=== PATIENT | male | born 1945 | race Caucasian/White ===

== ENCOUNTER 2016-07-23 02:21 | Inpatient (IN) | payer OTHER ==
[~2016-07-23] VITALS: Ht 180.3 cm; Wt 110.2 kg
--- NOTE | ~2016-07-23 | HC ---
[facility] [place] [address] CONSULTATION Name: ANDRADE GARCÍA ROSEBUSH Room #: 464-P [facility] IN M.R.#: [id number] Admission: 07/23/16 Attend Phys: Bala Medellin MD Discharge: 07/25/16 Date of : 47 Report #: [id number] THIS REPORT FOR: //name// CC: Bharath Baldomeroshanna Medellin DATE OF SERVICE: 07/23/2016 REASON FOR CONSULTATION: Elevated creatinine. ATTENDING PHYSICIAN: Bala Medellin M.D. HISTORY OF PRESENT ILLNESS: The patient presented with palpitations, slow heartbeat, weakness then nausea and vomiting. He came to the Emergency Room, his creatinine was found to be 2.4 as far as we know. He has had previous acute but no chronic kidney disease, although he has a longstanding diabetes and heart difficulties. He was found to have a creatinine of 2.4 and a potassium of 6.8. Of note, he was taking potassium at home, also intermittent Lasix. PAST MEDICAL HISTORY: He has a longstanding history of coronary artery disease, having a triple bypass surgery in 1980 and a repeat quadruple bypass done in 1993 and he has had since then a stent placed in one of his coronary arteries. He has had intermittent atrial fibrillation. He has had failed cardioversions. He has had anemia for which he was on Aranesp, which he is off. He has had diabetes for many years, recently started on insulin, but no retinopathy or peripheral neuropathy. HOME MEDICATIONS: Include WelChol 625 mg b.i.d., Protonix 40 mg b.i.d., Crestor 40 mg daily, Zetia 10 mg daily, metformin 1000 mg b.i.d., insulin, aspirin 81 mg daily, Humalog insulin, Ranexa 1000 mg b.i.d., potassium 20 mEq taken when he takes Lasix p.r.n. and atenolol 50 mg daily. FAMILY HISTORY: Positive for heart disease. SOCIAL HISTORY: Former smoker, but quit many years ago. 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 REVIEW OF SYSTEMS: GENERAL: He feels reasonably well, does get easily short-winded. EYES: Vision is okay. ENT: Hearing okay. No mouth sores or ulcers. No difficulty swallowing. ENDOCRINE: Positive for the diabetes. RESPIRATORY: Easily short-winded, as mentioned, slight degree of chronic cough. He has difficulty getting up and down stairs. [facility] [address] [place] [address] CONSULTATION Name: ANDRADE GARCÍA ROSEBUSH Room #: 464-[facility]#: [id number] Admission: 07/23/16 Attend Phys: Bala Medellin MD Discharge: 07/25/16 Date of : 47 Report #: [id number] CARDIAC: He had the palpitations as mentioned, occasional leg swelling, he takes Lasix for that. NEUROLOGICAL: No seizure, syncope or stroke. GASTROINTESTINAL: He did have some vomiting last night. No hematemesis. PHYSICAL EXAMINATION: GENERAL: This is a reasonably well-appearing gentleman. SKIN: Unremarkable. SKELETAL: Well developed, well nourished, somewhat overweight. HEENT: Extraocular movements are full. Vision intact. No scleral icterus. Nasal cannula oxygen in place. Hearing intact. Mucous membranes moist. Tongue, buccal mucosa benign. NECK: Supple. CHEST: Clear to auscultation. HEART: Slow but regular. ABDOMEN: Soft, nontender. EXTREMITIES: Show no edema. Peripheral pulses diminished. LABORATORY DATA: As mentioned, creatinine 2.4, the potassium was 6.8, down to 5.9 with treatment. ASSESSMENT AND PLAN: 1. Acute kidney insufficiency. His creatinine is up, he went into a slow heart rhythm, his potassium went up, maybe primarily or secondarily, all seems to be slowly getting better IV fluids are being continued, but we will certainly have to be careful not to overdo the IV fluids. Last echocardiogram that I have shows decreased ejection fraction of 30-35%, obviously he does have some compromise of his cardiac function, so we will certainly have to be careful with the IV fluids, not to throw him into heart failure, possibly another dose of Lasix along the way to help care with some of the excess of potassium, there may be some underlying chronic kidney disease as well, further evaluation will include urine protein studies, paraprotein studies and urinalysis. 2. Longstanding diabetes mellitus. 3. Ischemic cardiomyopathy. 4. Peripheral arterial disease. 5. History of atrial fibrillation, flutter. <ELECTRONICALLY SIGNED> By: Pasha Kim MD 07/29/16 1012 1157 13 Bharath Choi MD /nt
--- NOTE | ~2016-07-23 | H ---
[facility] [place] [address] HISTORY AND PHYSICAL Name: ANDRADE GARCÍA NATALYA Room #: 464-P ADM IN M.R.#: [id number] Admission: 07/23/16 Attend Phys: Bala Medellin MD Discharge: Date of : 47 Report #: [id number] THIS REPORT FOR: //name// CC: Bharath Medellin DATE OF SERVICE: 07/23/2016 CHIEF COMPLAINT: Shortness of air. HISTORY OF PRESENT ILLNESS: The patient is a 70-year-old male, who is well known to me, who states he had an episode where he felt like his heart was beating too slow, and he became short of breath. He has had these episodes in the past. These were lasted about 30 minutes. If he goes and lays down, they get better. At this time; however, it continued, so he presented to the ER. He states that he has been reducing his Lasix usage, lately because it caused some burning with urination, and when he used it daily, so using it about one dose 3 days a week. He says he has been eating and drinking well. He denied any chest pain with this sensation. He just generally felt weak when his pulse was low. PAST MEDICAL HISTORY: Significant for: 1. Coronary artery disease with bypass grafting in 1980 and 1993. 2. Chronic back pain with bulging disk. 3. History of atrial flutter. 4. Non-insulin dependent diabetes mellitus. 5. Prior cardioversions in 2011 and 2012. 6. Anemia with upper GI bleeds in 2012 and 2013. 7. Near syncope, dehydration, and LAMAR in 2013. 8. Reflux with prior ulcers. MEDICATIONS: Welchol 625 mg b.i.d., Protonix 40 mg b.i.d., Crestor 40 mg a day, Zetia 10 mg a day, metformin 1000 mg b.i.d., Levemir 30 units at bedtime, aspirin 81 mg a day, Humalog sliding scale, Ranexa 1000 mg b.i.d., potassium 20 mEq p.r.n. with his Lasix, which has also been p.r.n. 40 mg, and atenolol 25 mg daily. ALLERGIES: No known drug allergies. SOCIAL HISTORY: He is and lives with his . Nonsmoker, nondrinker, and no recreational drugs. REVIEW OF SYSTEMS: CONSTITUTIONAL: Prior to this event, no fever or chills. HEENT: No headaches or visual changes. CHEST: No chest pain or tightness. He does have these episodes of bradycardia. [address] [address] HISTORY AND PHYSICAL Name: ANDRADE GARCÍA [place] Room #: 464-P ADM IN M.R.#: [id number] Admission: 07/23/16 Attend Phys: Bala Medellin MD Discharge: Date of : 46 Report #: [id number] GASTROINTESTINAL: No nausea or vomiting. GENITOURINARY: He does have some right flank pain that has been going on for several weeks and burning with urination when he takes too much Lasix. EXTREMITIES: No swelling or joint pain. SKIN: No rashes or wounds. NEUROLOGIC: No new numbness or weakness. PHYSICAL EXAMINATION: VITAL SIGNS: Blood pressure 111/65, pulse is 50, respiratory rate is 19. He is afebrile. GENERAL: The patient is awake and alert, in no acute distress. HEENT: His mucous membranes are moist. NECK: Supple. Without adenopathy, thyromegaly, or bruits. CHEST: Clear to auscultation. CARDIOVASCULAR: He has a regular rhythm and rate of about 60 now. It was in the 30s in the ER. There is no murmur. There is no S4. ABDOMEN: Soft, nondistended, and nontender. No masses. Normoactive bowel sounds present. He has right flank pain on palpation. EXTREMITIES: Show no edema. Pulses are intact. SKIN: Intact without rashes or wounds. NEUROLOGIC: No motor or sensory weakness. LABORATORY DATA: His sodium was 136, potassium was 6.4, chloride 102, bicarbonate 25, BUN 25, creatinine 2.4, glucose 187, AST 21, ALT 21, alkaline phosphatase 46. CK-MB 2.5. Troponin less than 0.04. BNP 2116, total protein 7.9, albumin 4.0. INR 1.1. WBC is 10.6, hemoglobin 11.2, hematocrit 34.2, platelet count 247, segs 69, lymphs 15. ASSESSMENT: 1. Symptomatic bradycardia. 2. Acute kidney injury with chronic kidney disease. 3. Congestive heart failure, chronic systolic. 4. Hyperkalemia, most likely due to his acute kidney injury. 5. Diabetes mellitus, insulin requiring. 6. Right flank pain. PLAN: We are going to bring him in. Give him IV fluids. Recheck electrolytes. Consult Cardiology to consider pacemaker placement. Continue his insulin, basal and sliding scale rates. Check an ultrasound of his kidneys, in light of the flank pain and LAMAR. <ELECTRONICALLY SIGNED> By: Bala Medellin MD 07/25/16 0714 0653 1224 Bala Medellin MD /nt
--- NOTE | ~2016-07-23 | EKG ---
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1945 Requested By: Bharath Choi Order Number: [id number] MD: Preet Jarrett Measurements Intervals [place] Rate: 73 P: 55 VA: 210 QRS: 30 QRSD: 93 T: 155 QT: 405 QTc: 447 Interpretive Statements Sinus rhythm Nonspecific T abnormalities, lateral leads Compared to ECG 07/23/2016 08:33:02 No significant changes Electronically Signed On 07-24-2016 8:00:59 CDT by Preet Jarrett [email or web address] <ELECTRONICALLY SIGNED> By: Preet Jarrett MD, [facility] 07/24/16 0800 4 4 Preet Jarrett MD, [facility] /EPI
--- NOTE | ~2016-07-23 | HC ---
[facility] [place] [address] CONSULTATION Name: RAQUELANDRADE LINCOLN Room #: 464-[facility] IN M.R.#: [id number] Admission: 07/23/16 Attend Phys: Bala Medellin MD Discharge: 07/25/16 Date of : 46 Report #: [id number] THIS REPORT FOR: //name// CC: Bharath Medellin DATE OF SERVICE: 07/23/2016 HISTORY OF PRESENT ILLNESS: The patient is a 70-year-old male well known to myself who I followed for a number of years here now for coronary artery disease with prior remote bypass surgery, stents to the SVG to the RCA and stable anginal type symptoms. He has been quite stable in the last year or so. The ejection fraction has been in the 50% range with concenteric hypertrophy, mild pulmonary pressure elevation, moderate aortic valve sclerosis without stenosis, vwth-fh-gomzjhyn MR and TR. He apparently gives a couple week history of episodes where he became bradycardic and then shortness of breath transiently, but more importantly leading after this, he has had some problems with dysuria or at least initiating the stream and he stopped his 80 mg of Lasix and he has taken it perhaps 40 mg 3 times in the last week or two. Some question of dysuria and some flank pain. He follows with Dr. Medellin. He has remained out of the hospital for 2-1/2 years, which is actually quite remarkable. He has intermittent cough. He also talks about some sputum production and he denies significant fever, chills, not eliciting any sort of anginal type symptoms. He has been compliant with the medications with the exception of Lasix, Atenolol 50, potassium 20, Ranexa 1000 b.i.d., insulin, metformin 1000 b.i.d., Zetia, rosuvastatin 40, Protonix 40, and Welchol 625 b.i.d., supposed to be on Lasix in addition. PAST MEDICAL HISTORY: Positive for coronary artery disease with bypass and stents, mild ischemic cardiomyopathy, stable anginal symptoms, hypertension, diabetes, paroxysmal AFib with a cardioversion ____ failed and felt to be in more permanent AFib, has had intermittent AFib but ____ able to keep him in sinus rhythm here in the last year or so, reflux gastritis, the bypass surgery initially was 82 and 1994, left knee and right shoulder operations. FAMILY HISTORY: Father had an infarct young. Mother also had coronary artery disease in her 70s. SOCIAL HISTORY: He is a former smoker. No drugs or alcohol. He is with 2 children, moderate caffeine. ALLERGIES: No known drug allergies. REVIEW OF SYSTEMS: Negative except for the persistent hesitancy and sometimes dysuria. [facility] [address] [place] [address] CONSULTATION Name: ANDRADE GARCÍA NATALYA Room #: 464-P DIS IN M.R.#: [id number] Admission: 07/23/16 Attend Phys: Bala Medellin MD Discharge: 07/25/16 Date of : 46 Report #: [id number] LABORATORY DATA: Sodium 136, potassium was 6.4, now 6.8, creatinine 2.4, his baseline has been around 2. H and H is 11 and 34.2, white count 10.6, platelets 247. Ultrasound of his abdomen, no right-sided hydronephrosis seen, possible stones in the left kidney, gallbladder is thickened. Chest x-ray, cardiomegaly. No evidence of overt failure. PHYSICAL EXAMINATION: GENERAL: Pleasant, alert, he does not appear to be in distress except for some right-sided back pain. VITAL SIGNS: Blood pressure 136/68, pulse 60 and regular. HEENT: Eyes reveal xanthelasmas. Pharynx is clear. NECK: Shows preserved upstrokes without JVD or bruits. LUNGS: Clear. CARDIOVASCULAR: Regular rate and rhythm, S1, S2. ABDOMEN: Soft, nontender. Right flank tenderness. EXTREMITIES: Reveal trace of edema, nonpitting. NEUROLOGIC: Nonfocal. SKIN: Warm and dry without xanthoma or ulcer. MUSCULOSKELETAL: No gross joint deformity. ASSESSMENT: 1. Hyperkalemia. 2. Acute on chronic renal failure. 3. Paroxysmal atrial fibrillation. 4. Mild ischemic cardiomyopathy. 5. Coronary artery disease with remote CABG x 2 and coronary stents. 6. Diabetes. 7. Acute on chronic systolic and diastolic heart failure. RECOMMENDATIONS AND PLAN: We will correct the potassium, holding on any diuretic or potassium at this point. Nephrology to way in here. We will hold on the atenolol for now in light of the bradydysrhythmias that this may have been potassium related. Troponins are negative. No reason for repeat troponins and the BNP was only 2100. Concerned about a possible urinary tracts or prostatitis, although there does not appear to be an obstructive uropathy at least on ultrasound. His cardiac status appears to be fairly stable with exception of the hyperkalemia without significant over heart failure. We will follow with you. <ELECTRONICALLY SIGNED> By: Bharath Alexandre MD, [facility] 07/29/16 1544 0857 01 Bharath Alexandre MD, FACC /nt
--- NOTE | ~2016-07-23 | EKG ---
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 : 1945 Requested By: Bharath Alexandre Order Number: [id number] MD: Preet Jarrett Measurements Intervals [place] Rate: 67 P: OR: QRS: 35 QRSD: 99 T: 108 QT: 456 QTc: 482 Interpretive Statements Probable junctional rhythm Nonspecific T abnormalities, lateral leads Borderline prolonged QT interval No previous ECGs available for comparison Electronically Signed On 07-23-2016 9:05:08 CDT by Preet Jarrett [email or web address] <ELECTRONICALLY SIGNED> By: Preet Jarrett MD, [facility] 07/23/16904 2 2 Preet Jarrett MD, [facility] /EPI
--- NOTE | ~2016-07-23 | EKG ---
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 07/23/16 0900 6 6 Preet Jarrett MD, [facility] /EPI
[~2016-07-23 02:21] MED LIST: AMARYL2 MG PO; AMARYL4 MG PO; ARANESP100 MCG/0. SUBQ; ASPIR 8181 MG PO; ASPIRIN EC325 M1 PO; ASPIRIN325 PO; ATENOLOL 100MG100 MG PO; ATENOLOL 50MG T50 M1 PO; B12INJ IM; CARDIZEM CD240 MG PO; CARVEDILOL25 MG PO; COZAAR 25 MG TA25 MG PO; CRESTOR40 MG PO; DULERA 200 MCG/13 GM INH; ELIQUIS5 MG PO; FERROUS SULFAT140 MG PO; FIBER0.52 G1 PO; FISH OIL 1,0001 EAC5 PO; FUROSEMIDE 40 M40 M1 PO; GLUCOPHAGE1000 MG PO; HYDROCHLOROTH12.5 MG PO; IRON SULFATE PO; JANUVIA50 MG PO; LANOXIN 0.120.125 M1 PO; LANOXIN 0.250.25 M1 PO; LASIX 40 MG TAB40 M2 PO; MIRALAX17 GM PO; MULTAQ400 MG PO; NIASPAN ER 101000 M1 PO; PACERONE100 MG PO; POTASSIUM20 PO; PRADAXA150 MG PO; PROTONIX40 M2 PO; RANEXA1000 MG PO; SLOW RELEASE I142 MG PO; SOTALOL 120 MG120 M1 PO; VICTOZA0.6 MG/0.1 SUBQ; WELCHOL 625 MG625 M1 PO; ZETIA10 MG PO
[2016-07-23 02:23] VITALS: BP 111/65
[2016-07-23 02:46] LABS: ABSOLUTE NEUTROPHILS 7.4 thou/uL (1.4-8.2); BASOPHILS 0.9 % (0.0-2.0); EOSINOPHILS 3.6 % (0.0-3.0); HEMATOCRIT 34.2 % (42.0-52.0); HEMOGLOBIN 11.2 gm/dL (14.0-18.0); LYMPHOCYTES 15.7 % (24.0-44.0); MANUAL DIFF NO; MCHC 32.7 g/dL (28.0-37.0); MCV 79.5 fL (80.0-100.0); MONOCYTES 9.9 % (1.0-8.0); PLATELET COUNT 247 thou/uL (150-400); POLYS 69.9 % (36.0-66.0); RDW 18.2 % (10.5-14.5); WBC 10.6 thou/uL (4.0-11.0)
[2016-07-23 02:55] LABS: APTT 26.2 Seconds (24.5-32.8); INR 1.1; PROTIME 11.7 Seconds (9.3-11.4)
[2016-07-23 03:14] LABS: ALKALINE PHOSPHATASE 46 U/L (46-116); ANION GAP 9 mmol/L (7-16); BUN 25 mg/dL (7-18); CALCIUM 9.2 mg/dL (8.5-10.1); CHLORIDE 102 mmol/L (98-107); CK-MB MASS 2.5 ng/mL (<0.5-3.6); CO2 25 mmol/L (21-32); CREATININE 2.4 mg/dL (0.7-1.3); GLUCOSE 187 mg/dL (74-106); MAGNESIUM 1.8 mg/dL (1.8-2.4); NT-PRO BRAIN NAT PEPTIDE 2116 pg/mL (<300); SGOT 21 U/L (15-37); SGPT 21 U/L (30-65); SODIUM 136 mmol/L (136-145); TOTAL BILIRUBIN 0.7 mg/dL (<0.1-1.0); TOTAL PROTEIN 7.9 g/dL (6.4-8.2); TROPONIN-I < 0.04 ng/mL (<0.04-0.07)
[2016-07-23 03:16] LABS: POTASSIUM 6.4 mmol/L (3.5-5.1)
[2016-07-23] MEDS ORDERED: METFORMIN HCL500 MG PO (03:22)
[2016-07-23] MEDS ORDERED: ZETIA10 MG PO (03:22)
[2016-07-23] MEDS ORDERED: LEVEMIR100 UNIT/1 SUBQ (03:23)
[2016-07-23] MEDS ORDERED: NOVOLOG100 UNIT/1 SUBQ (03:24)
[2016-07-23] MEDS ORDERED: ASPIR 8181 MG PO (03:24)
[2016-07-23] MEDS ORDERED: HUMALOG100 UNIT/1 SUBQ (03:26)
[2016-07-23 04:44] VITALS: BP 136/57
[2016-07-23 05:05] VITALS: BP 136/67
[2016-07-23 09:04] LABS: CALCIUM 8.7 mg/dL (8.5-10.1); CREATININE 2.4 mg/dL (0.7-1.3); POTASSIUM 5.9 mmol/L (3.5-5.1)
[2016-07-23 11:54] LABS: URINE BILIRUBIN NEGATIVE (Negative); URINE BLOOD TRACE (Negative); URINE COLOR YELLOW; URINE GLUCOSE-RANDOM* TRACE (Negative); URINE KETONES NEGATIVE (Negative); URINE LEUKOCYTES-REFLEX NEGATIVE (Negative); URINE PROTEIN (DIPSTICK) 1+ (Negative); URINE SPECIFIC GRAVITY 1.025 (1.003-1.035); URINE UROBILINOGEN 0.2 E.U./dl (0.2-1.0)
[2016-07-23 12:01] LABS: CRYSTALS None Seen /LPF (None Seen); HYALINE CASTS 4-10 Moderate /LPF (None Seen); SQUAMOUS None Seen /LPF (0-3)
[2016-07-23 12:02] LABS: URINE RBC 0-2 Rare /HPF (0-2); URINE WBC-REFLEX 0-5 Rare /HPF (0-5)
[2016-07-23 12:55] VITALS: BP 135/60
[2016-07-23 17:02] VITALS: BP 132/75
[2016-07-23 19:11] LABS: URINE CREATININE-RANDOM* 69.5 mg/dL (Not Estab.); URINE PROTEIN-RANDOM* 40.4 mg/dL (Not Estab.)
[2016-07-23 21:48] VITALS: BP 133/66
[2016-07-24 04:00] VITALS: BP 129/61
[2016-07-24 06:20] LABS: ALBUMIN 3.5 g/dL (3.4-5.0); CALCIUM 8.3 mg/dL (8.5-10.1); CREATININE 1.6 mg/dL (0.7-1.3); PHOSPHORUS 3.5 mg/dL (2.5-4.9)
[2016-07-24 06:26] LABS: POTASSIUM 4.3 mmol/L (3.5-5.1)
[2016-07-24 07:25] VITALS: BP 172/69
[2016-07-24 12:42] VITALS: BP 122/61
[2016-07-24 15:06] LABS: KAPPA FREE LIGHT CHAINS 64.66 mg/L (3.30-19.40); KAPPA/LAMBDA RATIO 2.78 (0.26-1.65); LAMBDA FREE LIGHT CHAINS 23.27 mg/L (5.71-26.30)
[2016-07-24 16:34] VITALS: BP 125/68
[2016-07-24 20:01] VITALS: BP 131/55
[2016-07-25 04:47] VITALS: BP 148/66
[2016-07-25 06:17] LABS: ALBUMIN 3.6 g/dL (3.4-5.0); CALCIUM 9.1 mg/dL (8.5-10.1); CREATININE 1.2 mg/dL (0.7-1.3); POTASSIUM 5.2 mmol/L (3.5-5.1)
[2016-07-25] MEDS ORDERED: MULTAQ 400 MG400 MG PO (07:08)
[2016-07-25] MEDS ORDERED: FLOMAX0.4 MG PO (07:08)
[2016-07-25 07:20] LABS: HEMATOCRIT 31.6 % (42.0-52.0); HEMOGLOBIN 10.3 gm/dL (14.0-18.0); MCH 25.9 pg (26.0-34.0); MCHC 32.5 g/dL (28.0-37.0); MCV 79.7 fL (80.0-100.0); RBC 3.96 mil/uL (4.50-6.00); RDW 18.2 % (10.5-14.5); WBC 5.8 thou/uL (4.0-11.0)
[2016-07-25 08:18] VITALS: BP 154/90
[2016-07-25 11:08] VITALS: BP 154/90
[2016-07-29 12:07] LABS: A/G RATIO 1.2 (0.7-1.7); ALBUMIN 3.8 g/dL (2.9-4.4); ALPHA 1 0.2 g/dL (0.0-0.4); ALPHA 2 0.9 g/dL (0.4-1.0); BETA 1.1 g/dL (0.7-1.3); GAMMA 1.1 g/dL (0.4-1.8); M-SPIKE Not Observed g/dL (Not Observed)
== END 2016-07-25 12:13 | disposition home or self-care (01) | DRG 682 ==
LOC: ER 02:21 → EROBS 03:49 → 4W 03:49
PROVIDERS: Emergency Medicine; Family Medicine; Internal Medicine Cardiovascular Disease; Internal Medicine Nephrology; Physician Assistant
DX: N17.9 Acute kidney failure, unspecified (principal); I50.43 Acute on chronic combined systolic (congestive) and diastolic (congestive) heart failure; I48.92 Unspecified atrial flutter; G89.29 Other chronic pain; M54.9 Dorsalgia, unspecified; E87.5 Hyperkalemia; I25.10 Atherosclerotic heart disease of native coronary artery without angina pectoris; I25.5 Ischemic cardiomyopathy; E11.51 Type 2 diabetes mellitus with diabetic peripheral angiopathy without gangrene; I48.0 Paroxysmal atrial fibrillation; K21.9 Gastro-esophageal reflux disease without esophagitis; I12.9 Hypertensive chronic kidney disease with stage 1 through stage 4 chronic kidney disease, or unspecified chronic kidney disease; N18.9 Chronic kidney disease, unspecified; N41.9 Inflammatory disease of prostate, unspecified; E11.22 Type 2 diabetes mellitus with diabetic chronic kidney disease; Z82.49 Family history of ischemic heart disease and other diseases of the circulatory system; Z95.5 Presence of coronary angioplasty implant and graft; Z87.891 Personal history of nicotine dependence; Z95.1 Presence of aortocoronary bypass graft
CPT/HCPCS: 10045

== ENCOUNTER 2017-12-22 15:51 | Inpatient (IN) | payer OTHER ==
[~2017-12-22] VITALS: Ht 180.3 cm; Wt 106.6 kg
--- NOTE | ~2017-12-22 | HC ---
[facility] [place] [address] CONSULTATION Name: ANDRADE AGRCÍA CEDAR KNOLLS Room #: [facility] IN M.R.#: [id number] Admission: 12/22/17 Attend Phys: Bala Medellin MD Discharge: Date of : 46 Report #: [id number] THIS REPORT FOR: //name// CC: Bala Medellin REFERRING PHYSICIAN: Dr. Bala Medellin. REASON FOR REFERRAL: Dyspnea. HISTORY OF PRESENT ILLNESS: The patient is a 72-year-old gentleman who presented to Emergency Room with progressive dyspnea. A pulmonary consultation was requested. The patient was in her usual state of health until about 3 weeks ago when he started developing increasing cough, productive of purulent sputum. He was given medications. Medrol Dosepak was also given. This caused his blood sugars to be high. Otherwise, he denies any chest pain, hemoptysis, nausea, vomiting, diarrhea. PAST MEDICAL HISTORY: Notable for history of coronary artery disease, myocardial infarction, hypertension, diabetes mellitus, atrial fibrillation, anemia, gastroesophageal reflux disease. He has had coronary artery bypass surgery x 2 in 1980 and 1993. Chronic back pain due to bulging disk, atrial flutter. ALLERGIES: None to medications. MEDICATIONS: List reviewed which includes Demadex, Plavix, Welchol, Protonix, Crestor, Zetia, Levemir, Tenormin, Glucophage, Jardiance, metformin, aspirin, Corlanor, Ventolin HFA 2 puffs p.r.n., Ranexa. FAMILY HISTORY: Noncontributory. SOCIAL HISTORY: The patient has smoked 2 packs a day for about 30 years, quit few years ago. REVIEW OF SYSTEMS: As mentioned above, otherwise 10-point system review negative. PHYSICAL EXAMINATION: GENERAL: He is awake, alert, in no apparent distress. VITAL SIGNS: Temperature is 97.5 degrees Fahrenheit, pulse is 100, respiratory rate is 20, blood pressure 100/57 mmHg, saturation 99%. HEENT: Normocephalic, atraumatic. NECK: Supple, without lymphadenopathy or thyromegaly. CHEST: Breath sounds are clear bilaterally without any rales or wheezes. CARDIOVASCULAR: Normal S1, S2. There are no murmurs or gallop. There is no [address] [address] CONSULTATION Name: ANDRADE GARCÍA CEDAR KNOLLS Room #: [address] [place] [address] [place] [facility].#: [id number] Admission: 12/22/17 Attend Phys: Bala Medellin MD Discharge: Date of : 46 Report #: [id number], no carotid bruit. Pulses are 2+/4+ bilaterally. ABDOMEN: Soft, nontender, no organomegaly or masses felt. GENITOURINARY: Deferred. RECTAL: Deferred. EXTREMITIES: There is no edema, cyanosis or clubbing. LABORATORY DATA: Chest x-ray shows mild increase in pulmonary vascular markings, mild bibasilar atelectasis. Renal ultrasound shows no obstruction, small echogenic density seen in the lower pole of the left kidney. BNP is 3500. Electrolytes: Sodium 134, potassium 4.0, chloride 97, CO2 is 25, BUN is 29, creatinine is 2.1. WBC 6600, hemoglobin 9.8, platelets are normal, no evidence of bandemia. Albumin 3.4. IMPRESSION: 1. Progressive dyspnea in a 73-year-old white male. He was found to have acute kidney injury, felt to have heart failure. He has had history of productive cough. Etiology. Agree this is likely multifactorial including heart failure, kidney injury. Cannot rule out component of acute bronchitis. 2. Coronary artery disease, past history of myocardial infarction, coronary artery bypass surgery x 2, history of heart failure. He is felt to have pkekt-vw-upxhyoq heart failure at this time. 3. Chronic back pain. 4. Atrial flutter/atrial fibrillation. 5. Diabetes mellitus type 2. 6. Past history of tobacco use, possible underlying chronic obstructive pulmonary disease as a cause for his dyspnea. RECOMMENDATION: We will treat for presumed COPD with bronchodilator and corticosteroids. Continue diuresis as you are. DVT and GI prophylaxis recommended. Thank you for this consultation. <ELECTRONICALLY SIGNED> By: Juventino Sepulveda MD 12/25/175 1747 1 Juventino Sepulveda MD /nt
--- NOTE | ~2017-12-22 | EKG ---
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1945 Requested By: Molly Salter Order Number: [id number] MD: Preet Jarrett Measurements Intervals [place] Rate: 84 P: 0 VT: 236 QRS: 30 QRSD: 99 T: 167 QT: 406 QTc: 480 Interpretive Statements Probable atrial fibrillation Multiple premature complexes, vent Repol abnrm, diffuse leads Compared to ECG 12/31/2016 06:11:30 Atrial fibrillation has replaced sinus rhythm Electronically Signed On 12-23-2017 7:54:09 CDT by Preet Jarrett [email or web address] <ELECTRONICALLY SIGNED> By: Preet Jarrett MD, [facility] 12/23/17 0754 1608 1608 Preet Jarrett MD, [facility] /EPI
--- NOTE | ~2017-12-22 | HC ---
[facility] [place] [address] CONSULTATION Name: ANDRADE GARCÍA Room #: [facility]- ADM IN M.R.#: [id number] Admission: 12/22/17 Attend Phys: Bala Medellin MD Discharge: Date of : 47 Report #: [id number] THIS REPORT FOR: //name// CC: Bala Medellin DATE OF SERVICE: 12/23/2017 NEPHROLOGY CONSULTATION REASON FOR CONSULTATION: Worsening renal disease. HISTORY OF PRESENT ILLNESS: This 72-year-old gentleman, with symptomatic ischemic cardiomyopathy including worsening exertional dyspnea, fatigue, orthopnea and some leg swelling, was treated as an outpatient for some of these symptoms, was possibly thought to have an upper respiratory infection, also treated with steroids, sugars went quite high, became weaker, more symptomatic and was admitted to the hospital. His baseline creatinine has been about 1.5 and he was up to 2.2 of note, fairly recently started on Jardiance in addition to his other medications, also Corlanor for tachycardia issues. PAST MEDICAL HISTORY: He was admitted to this hospital last year with bradycardia, had acute kidney injury with creatinine that elver to 2.4 and potassium to 6.8, but fell back to his baseline of about 1.5 before discharge after being treated effectively for the hyperkalemia, the pericardial, now off the beta alejandro. He underwent, I believe later in the year last year, an additional coronary stent. He has had several of those and he has had 2 previous coronary bypasses as well. He has a history of ischemic cardiomyopathy with ejection fraction of about 50% and mild to moderate MR and TR. He has had some prostate issues, has been on Flomax. History of paroxysmal atrial fibrillation, some carotid arterial stenosis, knee and shoulder surgeries in the past. FAMILY HISTORY: Positive for coronary artery disease, CVA and hypertension in both parents smoke. SOCIAL HISTORY: He was a remote smoker. REVIEW OF SYSTEMS: GENERAL: He has been feeling poorly. EYES: His vision is okay. ENT: Hearing okay, swallows okay. No mouth sores. ENDOCRINE: Positive for the diabetes. RESPIRATORY: Easily short winded. CARDIAC: Chest pains have been absent of late, but he has had swelling in his legs. GASTROINTESTINAL: No nausea, vomiting or diarrhea. [facility] [address] [place] [address] CONSULTATION Name: ANDRADE GARCÍA IDYLLWILD Room #: [address] [place] [address] [place] .R.#: [id number] Admission: 12/22/17 Attend Phys: Bala Medellin MD Discharge: Date of : 46 Report #: [id number] GENITOURINARY: Reasonably good urinary stream. He has been on Flomax. NEUROLOGIC: No seizure, syncope or stroke. HOME MEDICATIONS: Reported to be torsemide 20 mg daily, Plavix 75 mg daily, Welchol 625 mg b.i.d., Protonix 40 mg b.i.d., Crestor 40 mg daily, Zetia 10 mg daily, insulin, Jardiance 10 mg daily, metformin 500 mg p.m. and 1000 mg a.m., aspirin 81 mg daily, Corlanor 10 mg daily, Ventolin inhaler p.r.n. and Ranexa 1000 mg b.i.d. and recently finished a Medrol Dosepak. PHYSICAL EXAMINATION: VITAL SIGNS: Reasonably well-appearing gentleman, does get easily short winded even with conversation. SKIN: Unremarkable. SKELETAL: Shows him to be just a bit overweight. HEENT: Extraocular movements are full. Vision is intact. There is no scleral icterus. Hearing is intact. Mucous membranes are moist. NECK: Supple, no carotid bruits. CHEST: Clear to auscultation. HEART: Regular. ABDOMEN: Soft, nontender. EXTREMITIES: Shows very trace peripheral edema. Peripheral pulses, I cannot feel at all. NEUROLOGIC: Grossly intact. LABORATORY DATA: The creatinine was 2.2. Electrolytes were normal. BUN 33. ASSESSMENT AND PLAN: Acute on chronic kidney disease. He has some chronic kidney disease. He has some underlying diabetic nephropathy with proteinuria. He has an acute exacerbation, possibly provoked by the SGLT2 inhibitor with osmotic diuresis. Long-term outcomes for these medications and diabetic nephropathy have been favorable, but occasionally, short-term acute kidney injury and hypotension have been feature, possibly this has been what been going on here, although I would not give him IV fluids. I might hold off on further diuretics also at the current time. I will get a renal sonogram, urine studies for completeness, although I doubt much will come of that. 2. Ischemic cardiomyopathy. 3. Status post coronary bypass x 2, percutaneous coronary intervention times multiple 4. Diabetes mellitus, diabetic nephropathy. 5. History of bradycardia and paroxysmal atrial fibrillation. <ELECTRONICALLY SIGNED> By: Bharath Choi MD 12/25/17 1109 1115 2144 Bharath Choi MD /nt
--- NOTE | ~2017-12-22 | 2DMMODE ---
[address] [address] 2 D/M-MODE ECHOCARDIOGRAM Name: ANDRADE GARCÍA NATALYA Room #: 211-P [facility] IN [facility]#: [id number] Admission: 12/22/17 Attend Phys: Bala Medellin, Discharge: Date of : 47 Date of Service: 12/23/17 1430 Report #: [id number] THIS REPORT FOR: //name// Accession No. : [id number] Patient Name / ID : RAQUEL HOANG / [id number] Exam Date : 12/23/2017 14:09:19 ( Approved ) Study Comment : Sex / Age : M / 72Y Creator : Mazin Davis Dictator : Head Sawyer : Hair Spring Winder : Bharath Alexandre MD Approver2 : Report Date : 12/23/2017 15:06:37 My Comment : APPROVED REPORT Study performed: 12/23/2017 14:09:19 EXAM: Comprehensive 2D, Doppler, and color-flow Echocardiogram Patient Location: Echo lab Room #: 430 Status: routine BSA: 2.26 HR: 100 bpm BP: 110/71 mmHg Rhythm: Tachycardia Other Information Study Quality: Adequate Indications Diabetes CAD Cardiomyopathy Hypertension/HDD Echo Enhancing Agent Indication: Endocardial border delineation Agent(s) / Amount(s) Used: Optison 3 cc 2D Dimensions RVDd: 38.29 mm [facility] [address] [address] 2 D/M-MODE ECHOCARDIOGRAM Name: ANDRADE GARCÍA [place] Room #: 211-P [facility] IN ..#: [id number] Admission: 12/22/17 Attend Phys: Bala Medellin, Discharge: Date of : 47 Date of Service: 12/23/17 1430 Report #: [id number] IVSd: 10.66 (7-11mm) LVOT Diam: 19.82 (18-24mm) LVDd: 52.55 mm PWd: 10.91 (7-11mm) Ascending Ao: 29.20 (22-36mm) LVDs: 45.04 (25-40mm) Aortic Root: 28.55 mm IVC: 25.00 mm Volumes Left Atrial Volume (Systole) Single Plane 4CH: 96.93 mL Single Plane 2CH: 56.86 mL LA ESV Index: 36.00 mL/m2 Aortic Valve AoV Peak Zhen.: 1.17 m/s AO Peak Gr.: 7.36 mmHg LVOT Max P.78 mmHg LVOT Max V: 0.67 m/s PABLO Vmax: 1.76 cm2 Pulmonary Valve PV Peak Zhen.: 0.70 m/s PV Peak Gr.: 2.00 mmHg Tricuspid Valve TR Peak Zhen.: 2.98 m/s TR Peak Gr.: 35.46 mmHg PA Pressure: 50.00 mmHg Left Ventricle The left ventricle is normal size. There is global hypokinesis of the left ventricle. There is normal left ventricular wall thickness. Left ventricular systolic function is moderately decreased.worse inf wall LVEF is 30-35%. The diastolic function is abnormal. Right Ventricle The right ventricle is normal size. Right ventricular systolic function is low normal. Atria Left atrium is dilated. Right atrium is dilated. Aortic Valve The aortic valve is normal in structure. Aortic valve is calcified. No aortic regurgitation is present. There is no aortic valvular stenosis. Mitral Valve The mitral valve is normal in structure. Mild mitral regurgitation. No evidence of mitral valve stenosis. [facility] [address] [place] [address] 2 D/M-MODE ECHOCARDIOGRAM Name: ANDRADE GARCÍA NATALYA Room #: [facility] IN M.R.#: [id number] Admission: 12/22/17 Attend Phys: Bala Medellin, Discharge: Date of : 46 Date of Service: 12/23/17 1430 Report #: [id number] Tricuspid Valve The tricuspid valve is normal in structure. There is trace to mild tricuspid regurgitation. Estimated PAP 50 mmHg. There is moderate pulmonary hypertension. Pulmonic Valve The pulmonary valve is normal in structure. Trace pulmonic regurgitation. Great Vessels The aortic root is normal in size. The inferior vena cava is dilated with no inspiratory collapse. Pericardium There is no pericardial effusion. <Conclusion> The left ventricle is normal size. Left ventricular systolic function is moderately decreased. Left ventricular systolic function is moderately decreased.worse inf wall LVEF is 30-35%. The diastolic function is abnormal. The right ventricle is normal size. Left atrium is dilated. Right atrium is dilated. The aortic valve is normal in structure. Aortic valve is calcified. Mild mitral regurgitation. There is trace to mild tricuspid regurgitation. Estimated PAP 50 mmHg. There is moderate pulmonary hypertension. The aortic root is normal in size. The inferior vena cava is dilated with no inspiratory collapse. There is no pericardial effusion. By: 1430 0909 Bharath Alexandre MD, FACC /JW
--- NOTE | ~2017-12-22 | 2DMMODE ---
[facility] [address] [address] 2 D/M-MODE ECHOCARDIOGRAM Name: GARCÍAANDRADE RAY Room #: 211-P [facility] IN ..#: [id number] Admission: 12/22/17 Attend Phys: Bala Medellin, Discharge: Date of : 46 Date of Service: 12/25/17 1256 Report #: [id number] THIS REPORT FOR: //name// APPROVED REPORT Study performed: 12/23/2017 14:09:19 EXAM: Comprehensive 2D, Doppler, and color-flow Echocardiogram Patient Location: Echo lab Room #: 430 Status: routine BSA: 2.26 HR: 100 bpm BP: 110/71 mmHg Rhythm: Tachycardia Other Information Study Quality: Adequate Indications Diabetes CAD Cardiomyopathy 2D Dimensions RVDd: 38.29 mm IVSd: 10.66 (7-11mm) LVOT Diam: 19.82 (18-24mm) LVDd: 52.55 mm PWd: 10.91 (7-11mm) Ascending Ao: 29.20 (22-36mm) LVDs: 45.04 (25-40mm) Aortic Root: 28.55 mm Volumes Left Atrial Volume (Systole) Single Plane 4CH: 96.93 mL Single Plane 2CH: 56.86 mL LA ESV Index: 36.00 mL/m2 Aortic Valve AoV Peak Zhen.: 1.17 m/s AO Peak Gr.: 7.36 mmHg LVOT Max P.78 mmHg LVOT Max V: 0.67 m/s PABLO Vmax: 1.76 cm2 Pulmonary Valve PV Peak Zhen.: 0.70 m/s PV Peak Gr.: 2.[address] [facility] [address] [address] 2 D/M-MODE ECHOCARDIOGRAM Name: ANDRADE GARCÍA NATALYA Room #: [address] [place] [address] [place] [facility]#: [id number] Admission: 12/22/17 Attend Phys: Bala Medellin, Discharge: Date of : 47 Date of Service: 12/25/17 1256 Report #: [id number] Tricuspid Valve TR Peak Zhen.: 2.98 m/s RAP Estimate: 15.00 mmHg TR Peak Gr.: 35.46 mmHg PA Pressure: 50.00 mmHg Left Ventricle The left ventricle is normal size. There is global hypokinesis of the left ventricle. There is normal left ventricular wall thickness. Left ventricular systolic function is moderately decreased. LVEF is 30-35%. The diastolic function is abnormal. Right Ventricle The right ventricle is normal size. The right ventricular systolic function is low normal. Atria Left atrium is dilated. Right atrium is dilated. Aortic Valve Aortic valve is calcified. No aortic regurgitation is present. There is no aortic valvular stenosis. Mitral Valve The mitral valve is normal in structure. Mild mitral regurgitation. Tricuspid Valve The tricuspid valve is normal in structure. Trace to mild tricuspid regurgitation. Moderate pulmonary hypertension with an estimated PAP of 50mmHg. Pulmonic Valve The pulmonary valve is normal in structure. Trace pulmonic regurgitation. Great Vessels The aortic root is normal in size. The inferior vena cava is dilated with no inspiratory collapse. Pericardium There is no pericardial effusion. <Conclusion> The left ventricle is normal size. LVEF is 30-35%. [facility] [place] [address] 2 D/M-MODE ECHOCARDIOGRAM Name: ANDRADE GARCÍA VIS[place] Room #: 211-P ADM IN M.R.#: [id number] Admission: 12/22/17 Attend Phys: Bala Medellin, Discharge: Date of : 47 Date of Service: 12/25/17 1256 Report #: [id number] There is global hypokinesis of the left ventricle. Left atrium is dilated. Right atrium is dilated. Aortic valve is calcified. The mitral valve is normal in structure. Mild mitral regurgitation. The tricuspid valve is normal in structure. Trace to mild tricuspid regurgitation. Moderate pulmonary hypertension with an estimated PAP of 50mmHg. The pulmonary valve is normal in structure. Trace pulmonic regurgitation. There is no pericardial effusion. <ELECTRONICALLY SIGNED> By: Jayme Tripp MD 12/25/17 1256 1256 1256 Jayme Tripp MD /INF
--- NOTE | ~2017-12-22 | EKG ---
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: TAM : 1945 Requested By: Preet Jarrett Order Number: [id number] MD: Preet Jarrett Measurements Intervals [place] Rate: 86 P: [place]: QRS: 30 QRSD: 94 T: 189 QT: 411 QTc: 492 Interpretive Statements Atrial fibrillation Repol abnrm suggests ischemia, anterolateral Compared to ECG 12/25/2017 08:37:55 No significant changes Electronically Signed On 12-26-2017 9:03:18 CDT by Preet Jarrett [email or web address] <ELECTRONICALLY SIGNED> By: Preet Jarrett MD, [facility] 12/26/17 09 0 0 Preet Jarrett MD, [facility] /EPI
--- NOTE | ~2017-12-22 | EKG ---
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 12/25/17 0857 6 6 Preet Jarrett MD, [facility] /EPI
--- NOTE | ~2017-12-22 | EKG ---
[address] [place] [address] ELECTROCARDIOGRAM REPORT Name: RAQUELANDRADEGORMAN Room #: 430-P ADM IN M.R.#: [id number] Admission: 12/22/17 Attend Phys: Bala Medellin MD Discharge: Date of : 46 Report #: [id number] THIS REPORT FOR: //name// 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 12/24/17 0852 Preet Jarrett MD, [facility] /EPI
[~2017-12-22 15:51] MED LIST changes: +ATENOLOL 25 MG25 M1 PO; +DEMADEX20 MG PO; +FLOMAX0.4 MG PO; +HUMALOG100 UNIT/1 SUBQ; +LEVEMIR100 UNIT/1 SUBQ; +METFORMIN HCL500 MG PO; +MULTAQ 400 MG400 MG PO; +NOVOLOG100 UNIT/1 SUBQ; +PLAVIX 75 MG TA75 MG PO
[2017-12-22 15:52] VITALS: BP 93/61
[2017-12-22 16:20] LABS: HEMATOCRIT 30.6 % (42.0-52.0); HEMOGLOBIN 9.8 gm/dL (14.0-18.0); MCH 25.2 pg (26.0-34.0); MCHC 32.1 g/dL (28.0-37.0); MCV 78.4 fL (80.0-100.0); PLATELET COUNT 307 thou/uL (150-400); RDW 19.8 % (10.5-14.5); WBC 6.6 thou/uL (4.0-11.0)
[2017-12-22 16:25] LABS: ANION GAP 12 mmol/L (7-16); BUN 33 mg/dL (7-18); CALCIUM 9.2 mg/dL (8.5-10.1); CHLORIDE 97 mmol/L (98-107); CO2 25 mmol/L (21-32); CREATININE 2.2 mg/dL (0.7-1.3); GLUCOSE 127 mg/dL (74-106); SODIUM 134 mmol/L (136-145)
[2017-12-22 16:33] LABS: TROPONIN-I <0.06 ng/mL (<0.06)
[2017-12-22 16:39] LABS: ABSOLUTE NEUTROPHILS 4.5 thou/uL (1.4-8.2); ANISOCYTOSIS 1+; PLATELET ESTIMATE NORMAL; POLYCHROMASIA 1+
[2017-12-22] MEDS ORDERED: JARDIANCE10 MG PO (16:46)
[2017-12-22] MEDS ORDERED: METFORMIN HCL1000 MG PO (17:08)
[2017-12-22] MEDS ORDERED: METFORMIN HCL500 MG PO (17:08)
[2017-12-22] MEDS ORDERED: CORLANOR5 MG PO (17:11)
[2017-12-22] MEDS ORDERED: ASPIR 8181 MG PO (17:11)
[2017-12-22] MEDS ORDERED: VENTOLIN HFA 1818 GM INH (17:13)
[2017-12-22 18:27] VITALS: BP 104/66
[2017-12-22 19:03] VITALS: BP 113/56
[2017-12-22 20:25] VITALS: BP 99/57
[2017-12-23 04:10] VITALS: BP 102/65
[2017-12-23 04:27] LABS: HEMATOCRIT 28.2 % (42.0-52.0); HEMOGLOBIN 9.1 gm/dL (14.0-18.0); MCHC 32.2 g/dL (28.0-37.0); MCV 77.7 fL (80.0-100.0); RBC 3.63 mil/uL (4.50-6.00); RDW 19.2 % (10.5-14.5); WBC 5.5 thou/uL (4.0-11.0)
[2017-12-23 07:25] VITALS: BP 110/71
[2017-12-23 11:51] LABS: % SATURATION 9 % (20-39); IRON 42 ug/dL (65-175); TIBC 465 ug/dL (250-450)
[2017-12-23 12:19] LABS: FERRITIN 68 ng/mL (26-388)
[2017-12-23 16:20] VITALS: BP 115/68
[2017-12-23 19:45] VITALS: BP 103/66
[2017-12-24 05:15] VITALS: BP 95/63
[2017-12-24 06:24] LABS: ALBUMIN 3.4 g/dL (3.4-5.0); CREATININE 2.1 mg/dL (0.7-1.3); PHOSPHORUS 3.9 mg/dL (2.5-4.9); POTASSIUM 3.9 mmol/L (3.5-5.1)
[2017-12-24 08:30] VITALS: BP 106/71
[2017-12-24 16:27] VITALS: BP 107/58
[2017-12-24 20:45] VITALS: BP 106/70
[2017-12-24 22:55] VITALS: BP 118/63
[2017-12-25 01:56] LABS: URINE BILIRUBIN NEGATIVE (Negative); URINE BLOOD TRACE (Negative); URINE CLARITY CLEAR; URINE COLOR YELLOW; URINE GLUCOSE-RANDOM* 3+ (Negative); URINE KETONES NEGATIVE (Negative); URINE LEUKOCYTES NEGATIVE (Negative); URINE NITRITE NEGATIVE (Negative); URINE PROTEIN (DIPSTICK) TRACE (Negative)
[2017-12-25 02:02] LABS: PROT/CREAT RATIO 1.1; URINE CREATININE-RANDOM* 51.1 mg/dL; URINE PROTEIN-RANDOM* 54.8 mg/dL (<11.9)
[2017-12-25 04:04] LABS: ALBUMIN 3.5 g/dL (3.4-5.0); CALCIUM 8.7 mg/dL (8.5-10.1); PHOSPHORUS 3.7 mg/dL (2.5-4.9)
[2017-12-25 05:09] VITALS: BP 99/63
[2017-12-25 06:16] VITALS: BP 101/59
[2017-12-25 07:57] VITALS: BP 103/67
[2017-12-25 08:22] LABS: HEMATOCRIT 31.6 % (42.0-52.0); MCHC 31.7 g/dL (28.0-37.0); MCV 78.9 fL (80.0-100.0); RDW 19.9 % (10.5-14.5); WBC 7.2 thou/uL (4.0-11.0)
[2017-12-25 10:21] VITALS: BP 115/60
[2017-12-25 14:13] VITALS: BP 106/45
[2017-12-25 19:51] VITALS: BP 115/51
[2017-12-26 00:10] VITALS: BP 118/76
[2017-12-26 04:30] VITALS: BP 88/52
[2017-12-26 04:35] LABS: MCH 25.3 pg (26.0-34.0); MCV 78.8 fL (80.0-100.0); RBC 3.55 mil/uL (4.50-6.00); RDW 19.8 % (10.5-14.5); WBC 7.3 thou/uL (4.0-11.0)
[2017-12-26 04:49] LABS: ALBUMIN 3.1 g/dL (3.4-5.0); CREATININE 1.9 mg/dL (0.7-1.3); POTASSIUM 4.1 mmol/L (3.5-5.1)
[2017-12-26 08:38] VITALS: BP 109/51
[2017-12-26] MEDS ORDERED: DILTIAZEM 24HR240 M2 PO (10:33)
[2017-12-26] MEDS ORDERED: ELIQUIS5 MG PO (10:33)
[2017-12-26 11:38] VITALS: BP 109/51
== END 2017-12-26 12:59 | disposition home or self-care (01) | DRG 682 ==
LOC: ER 15:51 → EROBS 17:31 → 4E 17:31 → 4W 12-24 20:43 → 2N 12-24 22:50 → ENTRNSPT 12-26 12:37 → EDTRNSPTSTS 12-26 12:38 → 2N 12-26 12:59
PROVIDERS: Emergency Medicine; Internal Medicine; Internal Medicine Nephrology; Nurse Practitioner; Nurse Practitioner Adult Health
DX: N17.9 Acute kidney failure, unspecified (principal); J96.01 Acute respiratory failure with hypoxia; I50.23 Acute on chronic systolic (congestive) heart failure; I48.92 Unspecified atrial flutter; I13.0 Hypertensive heart and chronic kidney disease with heart failure and stage 1 through stage 4 chronic kidney disease, or unspecified chronic kidney disease; I25.10 Atherosclerotic heart disease of native coronary artery without angina pectoris; E78.5 Hyperlipidemia, unspecified; G89.29 Other chronic pain; M54.9 Dorsalgia, unspecified; I25.5 Ischemic cardiomyopathy; I48.0 Paroxysmal atrial fibrillation; N18.9 Chronic kidney disease, unspecified; E11.22 Type 2 diabetes mellitus with diabetic chronic kidney disease; K21.9 Gastro-esophageal reflux disease without esophagitis; E11.51 Type 2 diabetes mellitus with diabetic peripheral angiopathy without gangrene; I70.1 Atherosclerosis of renal artery; K31.819 Angiodysplasia of stomach and duodenum without bleeding; D50.9 Iron deficiency anemia, unspecified; Z79.4 Long term (current) use of insulin; I25.2 Old myocardial infarction; Z95.1 Presence of aortocoronary bypass graft; Z82.49 Family history of ischemic heart disease and other diseases of the circulatory system; Z86.73 Personal history of transient ischemic attack (TIA), and cerebral infarction without residual deficits; Z87.891 Personal history of nicotine dependence; Z86.010 Personal history of colon polyps; Z79.899 Other long term (current) drug therapy
CPT/HCPCS: 10081; 10183; 10783

== ENCOUNTER 2018-01-01 23:17 | Inpatient (IN) | payer OTHER ==
[~2018-01-01] VITALS: Ht 180.3 cm; Wt 102.3 kg
--- NOTE | ~2018-01-01 | HC ---
[facility] [place] [address] CONSULTATION Name: ANDRADE GARCÍA [place] Room #: 240- ADM IN M.R.#: [id number] Admission: 01/02/18 Attend Phys: Bala Medellin MD Discharge: Date of : 46 Report #: [id number] THIS REPORT FOR: //name// CC: Jayme Medellin Juventino Ko DATE OF SERVICE: 01/02/2018 PULMONARY CONSULTATION PRIMARY CARE PHYSICIAN: Dr. Bala Medellin. REFERRAL PHYSICIAN: Dr. Bill Shannon. REASON FOR REFERRAL: Acute respiratory failure, cardiac arrest. HISTORY OF PRESENT ILLNESS: The patient is a 72-year-old gentleman who presented to the Emergency Room with complaints of dyspnea, nausea. While in the ER, he subsequently complained of chest pain, bradycardic and became pulseless. CPR was given for about 20 minutes. The patient then had return of pulse. He was intubated. Earlier today, the patient underwent cardioversion by Dr. Jarrett. He has a history of chronic atrial fibrillation. The patient did fairly well post cardioversion. PAST MEDICAL HISTORY: Coronary artery disease, had undergone coronary artery bypass surgery x 2 in 1980 and 1993, ischemic cardiomyopathy with ejection fraction of 30%, chronic back pain due to bulging disks, atrial fibrillation/flutter, anemia, diabetes mellitus type 2, hypertension, hyperlipidemia. PAST SURGICAL HISTORY: As mentioned above. ALLERGIES: None to medications. MEDICATIONS: His medication list is reviewed. Home medications include Demadex, diltiazem, Eliquis, Welchol, Protonix, Crestor, Zetia, Levemir, Glucophage, Ventolin, nebulized albuterol, Ranexa. FAMILY HISTORY: Noncontributory. SOCIAL HISTORY: The patient has smoked 2 packs a day for about 30 years, quit several years ago. No history of alcohol use. He is . [facility] [address] [place] [address] CONSULTATION Name: ANDRADE GARCÍA NATALYA Room #: 240-[facility] IN [facility]#: [id number] Admission: 01/02/18 Attend Phys: Bala Medellin MD Discharge: Date of : 47 Report #: [id number] REVIEW OF SYSTEMS: Deferred as the patient is intubated. PHYSICAL EXAMINATION: GENERAL: He is sedated. VITAL SIGNS: Temperature is 97.7 degrees Fahrenheit, pulse is 108, blood pressure is 109/51 mmHg, saturation is 100%. HEENT: Normocephalic, atraumatic. NECK: Supple, without lymphadenopathy or thyromegaly. CHEST: Breath sounds are clear anteriorly without any rales or wheezes. CARDIOVASCULAR: Heart sounds are distant. No obvious murmurs or gallop. ABDOMEN: Soft, nontender, no masses felt. GENITOURINARY: Deferred. RECTAL: Deferred. EXTREMITIES: There is no edema, cyanosis or clubbing. LABORATORY DATA: Chest x-ray shows mild increase in interstitial markings. Surgical clips seen on the mediastinal area. Sodium is 135, potassium 5.3, chloride 99, CO2 is 21, BUN is 55, creatinine is 2.6. Liver enzymes are elevated. WBC 15,600, hemoglobin is 11.4. Arterial blood gas revealed pH 7.19, pCO2 of 45, pO2 of 425. IMPRESSION: 1. Cardiac arrest in this 72-year-old white male. Has a history of coronary artery disease along with ischemic cardiomyopathy. He was just hospitalized less than a week ago for similar complaints of dyspnea. The patient underwent cardioversion earlier today. Etiology, suspect cardiac in origin. Pulmonary embolus is felt to be less likely as the patient is on anticoagulant. 2. Acute hypoxic respiratory failure, due to above. Chest x-ray shows mild interstitial infiltrates. Heart failure is likely. Pneumonia is felt to be less likely. 3. Acute kidney injury/chronic kidney disease. He is now moderately acidotic. IV bicarbonate has been given. 4. Hypotension. Again, it is felt to be cardiogenic. Sepsis is felt to be less likely. 6. Coronary artery disease, ischemic cardiomyopathy, coronary artery bypass surgery x 2. 7. Atrial fibrillation/flutter, status post cardioversion yesterday. 8. Diabetes mellitus, type 2. 9. History of tobacco use. There is still a suspicion for possible chronic obstructive pulmonary disease. 10. Chronic back pain. RECOMMENDATION: 1. We will continue mechanical ventilation, wean O2 for saturation 90%. We will defer hypothermia protocol to Cardiology. I will continue vasopressors to maintain systolic around 90, mean arterial pressure around 60. [address] [address] CONSULTATION Name: RAQUELANDRADEGORMAN Room #: 240-P [facility] IN ..#: [id number] Admission: 01/02/18 Attend Phys: Bala Medellin MD Discharge: Date of : 47 Report #: [id number] 2. He is nonoliguric. We will need to monitor closely. Renal will be consulted. 3. Of note, his initial rhythm in the Emergency Room was said to be bradycardia. Currently, he is hypotensive. His heart rate is inappropriately low at 70. I will defer to Cardiology. Thank you for this consultation. <ELECTRONICALLY SIGNED> By: Juventino Sepulveda MD 01/03/18 1538 0254 1859 Juventino Sepulveda MD /nt
--- NOTE | ~2018-01-01 | EKG ---
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 : 1945 Requested By: Bill Shannon Order Number: [id number] MD: Preet Jarrett Measurements Intervals [place] Rate: 69 P: [place]: QRS: 25 QRSD: 92 T: 172 QT: 410 QTc: 440 Interpretive Statements Sinus rhythm Occasional premature ventricular complexes Nonspecific ST and T wave abnormality Compared to ECG 12/26/2017 08:01:59 Sinus rhythm has replaced atrial fibrillation premature ventricular complexes are now present Electronically Signed On 01-02-2018 8:07:41 OLIVE GRADER by Preet Jarrett [email or web address] <ELECTRONICALLY SIGNED> By: Preet Jarrett MD, [facility] 01/02/1807 2329 2329 Preet Jarrett MD, [facility] /EPI
--- NOTE | ~2018-01-01 | EKG ---
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 : 1945 Requested By: Preet Jarrett Order Number: [id number] MD: Preet Jarrett Measurements Intervals [place] Rate: 101 P: AR: QRS: 36 QRSD: 101 T: 214 QT: 406 QTc: 527 Interpretive Statements Atrial flutter Nonspecific ST and T wave abnormality Prolonged QT interval Compared to ECG 01/04/2018 08:31:21 Heart rate has slowed Electronically Signed On 01-05-2018 8:16:34 PARTS CLERK PLANT MAINTENANCE by Preet Jarrett [email or web address] <ELECTRONICALLY SIGNED> By: Preet Jarrett MD, [facility] 01/05/1816 0629 Preet Jarrett MD, [facility] /EPI
--- NOTE | ~2018-01-01 | EKG ---
[address] [address] ELECTROCARDIOGRAM REPORT Name: ANDRADE GARCÍA Room #: 208-P ADM IN M.R.#: [id number] Admission: 01/02/18 Attend Phys: Bala Medellin MD Discharge: Date of : 47 Report #: [id number] THIS REPORT FOR: //name// 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
--- NOTE | ~2018-01-01 | EKG ---
[address] [place] [employer] [place] [address] ELECTROCARDIOGRAM REPORT Name: ANDRADE GARCÍA NATALYA Room #: 240-P ADM IN M.R.#: [id number] Admission: 01/02/18 Attend Phys: Bala Medellin MD Discharge: Date of : 47 Report #: [id number] THIS REPORT FOR: //name// [facility] Test Date: 2018-01-02 Test Time: 06:09:18 Pat Name: ANDRADE GARCÍA Department: Room: 240 P Gender: M Online Publisher: : 1945 Requested By: Bill Shannon Order Number: [id number] MD: Preet Jarrett Measurements Intervals [place] Rate: 98 P: 190 [place]: 145 QRS: 37 QRSD: 104 T: 196 QT: 379 QTc: 484 Interpretive Statements Sinus or ectopic atrial rhythm Repol abnrm, anterolateral Compared to ECG 12/26/2017 08:01:59 Ectopic atrial rhythm now present Electronically Signed On 01-02-2018 8:16:14 PERSONAL LINES UNDERWRITER by Preet Jarrett [email or web address] <ELECTRONICALLY SIGNED> By: Preet Jarrett MD, [facility] 01/02/18 0816 8 8 Preet Jarrett MD, [facility] /EPI
--- NOTE | ~2018-01-01 | EKG ---
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: CECILIO : 1945 Requested By: Preet Jarrett Order Number: [id number] MD: Preet Jarrett Measurements Intervals [place] Rate: 119 P: [place]: QRS: 22 QRSD: 100 T: 194 QT: 342 QTc: 482 Interpretive Statements Atrial fibrillation Nonspecific ST and T wave abnormality Compared to ECG 01/02/2018 06:09:18 Atrial fibrillation has replaced ectopic atrial rhythm Electronically Signed On 01-04-2018 9:40:53 EDI CONSULTANT by Preet Jarrett [email or web address] <ELECTRONICALLY SIGNED> By: Preet Jarrett MD, [facility] 01/04/1840 0 0 Preet Jarrett MD, [facility] /EPI
--- NOTE | ~2018-01-01 | EKG ---
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1945 Requested By: Jonathan Mane Order Number: [id number] MD: Preet Jarrett Measurements Intervals [place] Rate: 80 P: [place]: QRS: 32 QRSD: 95 T: 221 QT: 417 QTc: 482 Interpretive Statements Atrial fibrillation Nonspecific ST and T wave abnormality Compared to ECG 01/13/2018 07:51:47 No significant change was found Electronically Signed On 01-14-2018 8:49:23 JIGMAN by Preet Jarrett [email or web address] <ELECTRONICALLY SIGNED> By: Preet Jarrett MD, [facility] 01/14/18 0849 8 8 Preet Jarrett MD, [facility] /EPI
--- NOTE | ~2018-01-01 | 2DMMODE ---
[facility] [place] [address] 2 D/M-MODE ECHOCARDIOGRAM Name: ANDRADE GARCÍA RAY Room #: 240-P ADM IN M.R.#: [id number] Admission: 01/02/18 Attend Phys: Bala Medellin, Discharge: Date of : 47 Date of Service: 01/02/18 0954 Report #: [id number] THIS REPORT FOR: //name// APPROVED REPORT Study performed: 01/02/2018 08:58:17 EXAM: Comprehensive 2D, Doppler, and color-flow Echocardiogram Patient Location: ICU Room #: 240 Status: routine BSA: 2.27 HR: 101 bpm BP: 125/77 mmHg Rhythm: Tachycardia Other Information Study Quality: Adequate Indications Dyspnea Chest Pain S^P Code 2D Dimensions RVDd: 39.03 mm IVC: 28.00 mm Tricuspid Valve TR Peak Zhen.: 3.04 m/s TR Peak Gr.: 36.99 mmHg PA Pressure: 52.00 mmHg Left Ventricle The left ventricle is normal size. There is severe global hypokinesis of the left ventricle. There is normal left ventricular wall thickness. Left ventricular ejection fraction is severely decreased. LVEF 25-30%. Right Ventricle The right ventricle is normal size. Right ventricle is hypokinetic. Atria Left atrium is dilated. Right atrium is dilated. [facility] [address] 2 D/M-MODE ECHOCARDIOGRAM Name: ANDRADE GARCÍA NATALYA Room #: 240-P ADM IN M.R.#: [id number] Admission: 01/02/18 Attend Phys: Bala Medellin, Discharge: Date of : 47 Date of Service: 01/02/1854 Report #: [id number] Aortic Valve The aortic valve is normal in structure. Mitral Valve The mitral valve is normal in structure. Moderate mitral regurgitation. Tricuspid Valve The tricuspid valve is normal in structure. There is mild tricuspid regurgitation. Estimated PAP 52 mmHg. There is moderate pulmonary hypertension. Pulmonic Valve The pulmonary valve is normal in structure. Great Vessels The aortic root is normal in size. The inferior vena cava is dilated with no inspiratory collapse. Pericardium There is no pericardial effusion. <Conclusion> Left ventricular ejection fraction is severely decreased. LVEF 25-30%. Right ventricle is hypokinetic. Both atria are dilated. The aortic valve is normal in structure. The mitral valve is normal in structure. Moderate mitral regurgitation. There is mild tricuspid regurgitation. Estimated pulmonary artery pressure of 52 mmHg. There is no pericardial effusion. <ELECTRONICALLY SIGNED> By: Preet Jarrett MD, [facility] 01/02/1854 0954 Preet Jarrett MD, [facility] /INF
--- NOTE | ~2018-01-01 | EKG ---
[address] [address] ELECTROCARDIOGRAM REPORT Name: ANDRADE GARCÍA Room #: 208-P ADM IN M.R.#: [id number] Admission: 01/02/18 Attend Phys: Bala Medellin MD Discharge: Date of : 47 Report #: [id number] THIS REPORT FOR: //name// [facility] Test Date: 2018-01-12 Test Time: 07:08:14 Pat Name: ANDRADE GARCÍA Department: Room: 208 P Gender: M Clutch Operator: : 1945 Requested By: Jonathan Mane Order Number: [id number] MD: Preet Jarrett Measurements Intervals [place] Rate: 97 P: ID: QRS: 28 QRSD: 94 T: 229 QT: 396 QTc: 503 Interpretive Statements Atrial fibrillation Ventricular premature complex Nonspecific ST and T wave abnormality Compared to ECG 01/11/2018 10:35:27 Ventricular premature complex(es) now present Electronically Signed On 01-12-2018 8:23:31 NETWORK ARCHITECT by Preet Jarrett [email or web address] <ELECTRONICALLY SIGNED> By: Preet Jarrett MD, [facility] 01/12/18 0823 Preet Jarrett MD, [facility] /EPI
--- NOTE | ~2018-01-01 | HC ---
[facility] [place] [address] CONSULTATION Name: GARCÍAANDRADE [place] Room #: 240-P [facility] IN M.R.#: [id number] Admission: 01/02/18 Attend Phys: Bala Medellin MD Discharge: Date of : 47 Report #: [id number] THIS REPORT FOR: //name// CC: Jayme Sepulveda DATE OF SERVICE: 01/02/2018 REASON FOR CONSULTATION: Post-arrest acute kidney injury. HISTORY OF PRESENT ILLNESS: This is a 72-year-old who presented to the Emergency Room complaining of shortness of breath, chest pain, nausea 2-3 hours before his presentation. 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 He was brought to the Emergency Room and unfortunately, the patient's condition deteriorated in the Emergency Room with his blood pressure dropping and his pulse slowing down to the 20s. He then went into a pulseless electrical activity and asystole. It looks like that the patient has required around 20 minutes of resuscitation and was moved to the intensive care unit. Currently, he is maintained on Levophed, dopamine, Domenic-Synephrine. The patient's creatinine post code was reported to be 2.8. On presentation yesterday, was in the 2.6 range. The patient has had fluctuating creatinine in the last year anywhere from 2-2.2. Back in 2017, his creatinine has been in the 1.6-3 range. He has a very complex medical history and was evaluated on numerous occasions by Dr. Choi and Dr. Hunter from my group. He is known to have coronary artery disease with bypass grafting in 1980 and 1993. He is also known to have longstanding AFib, diabetes mellitus, hypertension. He had prior cardioversions in 2011 and 2012 that had failed. He is also followed by Dr. Thomas from the hematology service for anemia and had received erythropoietin in the past. The patient is currently intubated and not able to provide me with the details of his presentation. PAST MEDICAL HISTORY: Extensive and includes the followin. Diabetes mellitus. 2. CABG x 2. 3. Atrial flutter. 4. Failed cardioversion. 5. Anemia. ALLERGIES: None. FAMILY HISTORY: Significant for heart disease. SOCIAL HISTORY: , retired, nonsmoker. HOME MEDICATIONS: [facility] [address] [place] [address] CONSULTATION Name: ANDRADE GARCÍA [place] Room #: [facility] IN ..#: [id number] Admission: 01/02/18 Attend Phys: Bala Medellin MD Discharge: Date of : 47 Report #: [id number] 1. Flomax. 2. Eliquis. 3. Ezetimibe. 4. Torsemide. 5. Metformin. 6. Lispro insulin. 7. Ranexa. 8. Diltiazem. 9. Jardiance. REVIEW OF SYSTEMS: Completely unobtainable given the patient's current mental status and intubation. PHYSICAL EXAMINATION: GENERAL: He is intubated. VITAL SIGNS: Temperature is 36.6, pulse is 97, respiratory rate is 16, blood pressure is 141/83. HEAD AND NECK: ET tube in place. CHEST: Decreased air entry bilaterally. CARDIOVASCULAR: No rub detected. ABDOMEN: Soft, nontender. EXTREMITIES: Lower extremities, no edema. LABORATORY DATA: Reviewed. White blood cell count 15.6. pH 7.2. Lactate 4.1, sodium 136, potassium 5.3, BUN 56, creatinine 2.8. INR is 1.8. Chest x-ray reviewed. ASSESSMENT, IMPRESSION AND PLAN: 1. Acute kidney injury. 2. Post arrest. 3. Respiratory failure. 4. Leukocytosis. 5. Lactic acidosis. 6. Anemia. 7. Chronic kidney disease. 8. The patient's acute kidney injury is well explained by his current status. 9. I will have to discuss with his family members halfway approach for his chronic kidney disease and acute kidney injury. 10. We will try to manage medically at this point. I will initiate the appropriate hyperkalemia treatment. 11. We will make the necessary adjustment with his IV fluid. 12. Cardiology has been consulted for his bradycardia, currently maintained on dopamine and Levophed, would like to wean off as soon as possible. 13. Pulmonary had been consulted regarding his respiratory failure. 14. Watch urine output. [address] [address] CONSULTATION Name: ANDRADE GARCÍA [place] Room #: 240-P [facility] IN M.R.#: [id number] Admission: 01/02/18 Attend Phys: Bala Medellin MD Discharge: Date of : 47 Report #: [id number] 15. Avoid nephrotoxins. 16. Watch his volume status. Further plans will follow after discussing with his family members. <ELECTRONICALLY SIGNED> By: Viridiana Beckett MD 01/04/18 1636 0834 0101 Viridiana Beckett MD /nt
--- NOTE | ~2018-01-01 | EKG ---
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 : 1945 Requested By: Jonathan Mane Order Number: [id number] MD: Preet Jarrett Measurements Intervals [place] Rate: 75 P: CT: QRS: 41 QRSD: 94 T: 237 QT: 405 QTc: 453 Interpretive Statements Atrial fibrillation Nonspecific ST and T wave abnormality Compared to ECG 01/12/2018 07:08:14 No significant change was found Electronically Signed On 01-13-2018 9:24:39 SEMICONDUCTOR PACKAGES PLATEMAKER by Preet Jarrett [email or web address] <ELECTRONICALLY SIGNED> By: Preet Jarrett MD, [facility] 01/13/18 0924 075 075 Preet Jarrett MD, [facility] /EPI
--- NOTE | ~2018-01-01 | EKG ---
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
--- NOTE | ~2018-01-01 | EKG ---
[address] [address] [address] [place] [address] ELECTROCARDIOGRAM REPORT Name: GARCÍAANDRADE Room #: 240-P ADM IN M.R.#: [id number] Admission: 01/02/18 Attend Phys: Bala Medellin MD Discharge: Date of : 47 Report #: [id number] THIS REPORT FOR: //name// 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 : 1945 Requested By: Juventino Sepulveda Order Number: [id number] MD: Preet Jarrett Measurements Intervals [place] Rate: 89 P: [place]: QRS: 42 QRSD: 103 T: 175 QT: 406 QTc: 495 Interpretive Statements Accelerated junctional rhythm Repol abnrm, diffuse leads Compared to ECG 12/26/2017 08:01:59 Accelerated junctional rhythm now present premature ventricular complexes no longer present Electronically Signed On 01-02-2018 8:11:24 STEAM ROLLER OPERATOR by Preet Jarrett [email or web address] <ELECTRONICALLY SIGNED> By: Preet Jarrett MD, [facility] 01/02/18 0811 0055 0055 Preet Jarrett MD, [facility] /EPI
[~2018-01-01 23:17] MED LIST changes: +CORLANOR5 MG PO; +DILTIAZEM 24HR240 M2 PO; +JARDIANCE10 MG PO; +METFORMIN HCL1000 MG PO; +VENTOLIN HFA 1818 GM INH
[2018-01-01 23:19] VITALS: BP 154/112
[2018-01-02] VITALS (83 sets, daily range): BP systolic 91–146; BP diastolic 53–87
[2018-01-02 00:02] LABS: ABSOLUTE NEUTROPHILS 12.7 thou/uL (1.4-8.2); BASOPHILS 0.3 % (0.0-2.0); EOSINOPHILS 0.1 % (0.0-3.0); HEMATOCRIT 36.1 % (42.0-52.0); HEMOGLOBIN 11.4 gm/dL (14.0-18.0); LYMPHOCYTES 6.6 % (24.0-44.0); MCH 25.7 pg (26.0-34.0); MCHC 31.6 g/dL (28.0-37.0); MCV 81.3 fL (80.0-100.0); MONOCYTES 11.3 % (1.0-8.0); PLATELET COUNT 309 thou/uL (150-400); POLYS 81.7 % (36.0-66.0); RBC 4.45 mil/uL (4.50-6.00); WBC 15.6 thou/uL (4.0-11.0)
[2018-01-02 00:09] LABS: CALCIUM 8.6 mg/dL (8.5-10.1); CREATININE 2.6 mg/dL (0.7-1.3); POTASSIUM 5.3 mmol/L (3.5-5.1)
[2018-01-02 00:14] LABS: APTT 28.8 Seconds (24.5-32.8); INR 1.8; PROTIME 19.2 Seconds (9.3-11.4)
[2018-01-02 00:17] LABS: ALBUMIN 3.2 g/dL (3.4-5.0); MAGNESIUM 2.4 mg/dL (1.8-2.4); TOTAL BILIRUBIN 2.7 mg/dL (<0.1-1.0); TOTAL PROTEIN 7.2 g/dL (6.4-8.2); TROPONIN-I 0.16 ng/mL (<0.06)
[2018-01-02 00:46] LABS: ANISOCYTOSIS 3+; POLYCHROMASIA 2+
[2018-01-02 00:53] LABS: BE(vivo) -10.4 mmol/L (-2 to +3); HCO3 17.3 mmol/L (22.0-26.0); PCO2 45.7 mmHg (35.0-45.0); PO2 425.1 mmHg (80.0-100.0); sO2 99.8 % (92.0-98.0)
[2018-01-02 00:54] LABS: pH 7.197 (7.360-7.450)
[2018-01-02 02:40] LABS: BE(vivo) -12.3 mmol/L (-2 to +3); HCO3 15.5 mmol/L (22.0-26.0); PCO2 42.5 mmHg (35.0-45.0); PO2 95.6 mmHg (80.0-100.0); sO2 95.5 % (92.0-98.0)
[2018-01-02 03:31] LABS: CALCIUM 8.7 mg/dL (8.5-10.1); CREATININE 2.8 mg/dL (0.7-1.3); POTASSIUM 5.3 mmol/L (3.5-5.1)
[2018-01-02 03:53] LABS: BE(vivo) -5.2 mmol/L (-2 to +3); HCO3 21.7 mmol/L (22.0-26.0); PCO2 48.1 mmHg (35.0-45.0); PO2 91.4 mmHg (80.0-100.0); sO2 95.9 % (92.0-98.0)
[2018-01-02 03:54] LABS: pH 7.272 (7.360-7.450)
[2018-01-02] MEDS ORDERED: MULTAQ400 MG PO (05:20)
[2018-01-02] MEDS ORDERED: METOPROLOL SUCC50 MG PO (05:24)
[2018-01-02] MEDS ORDERED: JARDIANCE10 MG PO (05:25)
[2018-01-02 09:22] LABS: CALCIUM 8.4 mg/dL (8.5-10.1); CREATININE 2.6 mg/dL (0.7-1.3); POTASSIUM 5.5 mmol/L (3.5-5.1)
[2018-01-02 11:24] LABS: URINE CREATININE-RANDOM* <13 mg/dL; URINE SODIUM-RANDOM* 78 mmol/L
[2018-01-02 11:29] LABS: URINE BILIRUBIN NEGATIVE (Negative); URINE BLOOD 3+ (Negative); URINE GLUCOSE-RANDOM* 3+ (Negative); URINE KETONES NEGATIVE (Negative); URINE LEUKOCYTES TRACE (Negative); URINE NITRITE NEGATIVE (Negative); URINE PROTEIN (DIPSTICK) 2+ (Negative); URINE UROBILINOGEN 0.2 E.U./dl (0.2-1.0)
[2018-01-02 11:30] LABS: URINE CLARITY CLOUDY; URINE COLOR RED
[2018-01-02 11:32] LABS: BACTERIA 1-9 Few /HPF (None Seen); SQUAMOUS None Seen /LPF (0-3); URINE RBC >20 Many /HPF (0-2); URINE WBC 0-5 Rare /HPF (0-5)
[2018-01-02 11:33] LABS: CASTS None Seen /LPF (None Seen); CRYSTALS None Seen /LPF (None Seen)
[2018-01-02 14:45] LABS: BE(vivo) -2.4 mmol/L (-2 to +3); HCO3 22.4 mmol/L (22.0-26.0); PCO2 38.8 mmHg (35.0-45.0); PO2 179.5 mmHg (80.0-100.0); sO2 99.2 % (92.0-98.0)
[2018-01-02 15:11] LABS: CALCIUM 8.6 mg/dL (8.5-10.1); CREATININE 2.7 mg/dL (0.7-1.3); POTASSIUM 4.9 mmol/L (3.5-5.1)
[2018-01-03] VITALS (59 sets, daily range): BP systolic 83–117; BP diastolic 39–78
[2018-01-03 06:02] LABS: ALBUMIN 2.5 g/dL (3.4-5.0); CALCIUM 8.2 mg/dL (8.5-10.1); CREATININE 2.6 mg/dL (0.7-1.3); PHOSPHORUS 3.8 mg/dL (2.5-4.9); TROPONIN-I 0.18 ng/mL (<0.06)
[2018-01-03 08:15] LABS: HEMATOCRIT 30.4 % (42.0-52.0); HEMOGLOBIN 9.7 gm/dL (14.0-18.0); MCH 25.7 pg (26.0-34.0); MCHC 31.9 g/dL (28.0-37.0); MCV 80.7 fL (80.0-100.0); RBC 3.76 mil/uL (4.50-6.00); RDW 22.8 % (10.5-14.5); WBC 9.3 thou/uL (4.0-11.0)
[2018-01-04] VITALS (42 sets, daily range): BP systolic 80–112; BP diastolic 40–74
[2018-01-04 05:40] LABS: BE(vivo) 4.5 mmol/L (-2 to +3); HCO3 28.9 mmol/L (22.0-26.0); PCO2 42.4 mmHg (35.0-45.0); PO2 87.2 mmHg (80.0-100.0); pH 7.452 (7.360-7.450)
[2018-01-04 05:52] LABS: HEMATOCRIT 31.1 % (42.0-52.0); MCH 25.8 pg (26.0-34.0); MCHC 32.1 g/dL (28.0-37.0); MCV 80.4 fL (80.0-100.0); RBC 3.87 mil/uL (4.50-6.00); RDW 22.9 % (10.5-14.5); WBC 5.5 thou/uL (4.0-11.0)
[2018-01-04 06:04] LABS: ALBUMIN 2.5 g/dL (3.4-5.0); CALCIUM 8.6 mg/dL (8.5-10.1); CREATININE 2.6 mg/dL (0.7-1.3); PHOSPHORUS 5.4 mg/dL (2.5-4.9)
[2018-01-05] VITALS (45 sets, daily range): BP systolic 87–107; BP diastolic 49–70
[2018-01-05 05:51] LABS: HEMATOCRIT 31.9 % (42.0-52.0); HEMOGLOBIN 10.1 gm/dL (14.0-18.0); MCH 25.6 pg (26.0-34.0); MCHC 31.5 g/dL (28.0-37.0); MCV 81.3 fL (80.0-100.0); RBC 3.93 mil/uL (4.50-6.00); RDW 23.1 % (10.5-14.5); WBC 7.4 thou/uL (4.0-11.0)
[2018-01-05 06:06] LABS: ALBUMIN 2.6 g/dL (3.4-5.0); CALCIUM 8.4 mg/dL (8.5-10.1); CREATININE 2.1 mg/dL (0.7-1.3); PHOSPHORUS 4.1 mg/dL (2.5-4.9); POTASSIUM 3.4 mmol/L (3.5-5.1)
[2018-01-06] VITALS (47 sets, daily range): BP systolic 87–143; BP diastolic 53–87
[2018-01-06 05:39] LABS: HEMATOCRIT 32.6 % (42.0-52.0); HEMOGLOBIN 9.9 gm/dL (14.0-18.0); MCH 25.1 pg (26.0-34.0); MCHC 30.4 g/dL (28.0-37.0); MCV 82.4 fL (80.0-100.0); RBC 3.96 mil/uL (4.50-6.00); RDW 22.8 % (10.5-14.5); WBC 6.7 thou/uL (4.0-11.0)
[2018-01-06 05:52] LABS: ALBUMIN 2.5 g/dL (3.4-5.0); CALCIUM 8.3 mg/dL (8.5-10.1); CREATININE 1.6 mg/dL (0.7-1.3); PHOSPHORUS 3.2 mg/dL (2.5-4.9); POTASSIUM 3.7 mmol/L (3.5-5.1)
[2018-01-06 13:00] LABS: BE(vivo) 1.5 mmol/L (-2 to +3); HCO3 28.7 mmol/L (22.0-26.0); PCO2 57.8 mmHg (35.0-45.0); PO2 75.9 mmHg (80.0-100.0); pH 7.314 (7.360-7.450); sO2 93.8 % (92.0-98.0)
[2018-01-07] VITALS (48 sets, daily range): BP systolic 100–162; BP diastolic 57–96
[2018-01-07 06:28] LABS: ALBUMIN 2.7 g/dL (3.4-5.0); CALCIUM 8.7 mg/dL (8.5-10.1); CREATININE 1.5 mg/dL (0.7-1.3); PHOSPHORUS 2.9 mg/dL (2.5-4.9); POTASSIUM 3.9 mmol/L (3.5-5.1)
[2018-01-07 10:07] LABS: BE(vivo) 2.8 mmol/L (-2 to +3); HCO3 27.5 mmol/L (22.0-26.0); PCO2 42.6 mmHg (35.0-45.0); PO2 80.7 mmHg (80.0-100.0); pH 7.427 (7.360-7.450); sO2 96.1 % (92.0-98.0)
[2018-01-07 19:13] LABS: BE(vivo) -1.9 mmol/L (-2 to +3); HCO3 21.6 mmol/L (22.0-26.0); PCO2 33.2 mmHg (35.0-45.0); PO2 67.4 mmHg (80.0-100.0); pH 7.432 (7.360-7.450); sO2 94.1 % (92.0-98.0)
[2018-01-08] VITALS (34 sets, daily range): BP systolic 117–148; BP diastolic 59–98
[2018-01-08 06:31] LABS: ALBUMIN 2.9 g/dL (3.4-5.0); CALCIUM 8.7 mg/dL (8.5-10.1); CREATININE 1.4 mg/dL (0.7-1.3); PHOSPHORUS 2.7 mg/dL (2.5-4.9); POTASSIUM 3.7 mmol/L (3.5-5.1)
[2018-01-08 12:09] LABS: ALBUMIN 2.7 g/dL (3.4-5.0); CALCIUM 8.4 mg/dL (8.5-10.1); CREATININE 1.5 mg/dL (0.7-1.3); POTASSIUM 3.6 mmol/L (3.5-5.1); TOTAL BILIRUBIN 1.9 mg/dL (<0.1-1.0); TOTAL PROTEIN 6.4 g/dL (6.4-8.2)
[2018-01-09] VITALS (28 sets, daily range): BP systolic 118–147; BP diastolic 60–87
[2018-01-09 05:14] LABS: ALBUMIN 2.8 g/dL (3.4-5.0); CALCIUM 8.6 mg/dL (8.5-10.1); CREATININE 1.2 mg/dL (0.7-1.3); PHOSPHORUS 2.1 mg/dL (2.5-4.9); POTASSIUM 3.5 mmol/L (3.5-5.1)
[2018-01-10 00:17] VITALS: BP 126/80
[2018-01-10 03:53] VITALS: BP 126/69
[2018-01-10 04:46] LABS: ALBUMIN 2.5 g/dL (3.4-5.0); CREATININE 1.2 mg/dL (0.7-1.3); PHOSPHORUS 3.3 mg/dL (2.5-4.9); POTASSIUM 3.8 mmol/L (3.5-5.1)
[2018-01-10 07:46] VITALS: BP 134/69
[2018-01-10 15:17] VITALS: BP 119/73
[2018-01-10 16:53] VITALS: BP 108/61
[2018-01-10 20:10] VITALS: BP 114/64
[2018-01-11 04:40] VITALS: BP 119/71
[2018-01-11 07:35] VITALS: BP 122/61
[2018-01-11 10:37] LABS: HEMATOCRIT 36.2 % (42.0-52.0); HEMOGLOBIN 11.5 gm/dL (14.0-18.0); MCH 25.8 pg (26.0-34.0); MCHC 31.8 g/dL (28.0-37.0); MCV 81.3 fL (80.0-100.0); RBC 4.45 mil/uL (4.50-6.00); RDW 21.2 % (10.5-14.5)
[2018-01-11 10:54] LABS: ALBUMIN 2.6 g/dL (3.4-5.0); CALCIUM 8.1 mg/dL (8.5-10.1); CREATININE 1.2 mg/dL (0.7-1.3); POTASSIUM 3.5 mmol/L (3.5-5.1); TOTAL BILIRUBIN 2.6 mg/dL (<0.1-1.0); TOTAL PROTEIN 5.9 g/dL (6.4-8.2)
[2018-01-11 11:22] VITALS: BP 116/53
[2018-01-11 20:00] VITALS: BP 99/56
[2018-01-12] VITALS: BP 107/58
[2018-01-12 04:00] VITALS: BP 107/55
[2018-01-12 04:21] LABS: CALCIUM 7.6 mg/dL (8.5-10.1); CREATININE 1.3 mg/dL (0.7-1.3)
[2018-01-12 13:40] VITALS: BP 76/44
[2018-01-12 16:56] VITALS: BP 109/51
[2018-01-12 19:16] VITALS: BP 92/43
[2018-01-13 00:05] VITALS: BP 117/41
[2018-01-13 03:35] VITALS: BP 124/57
[2018-01-13 08:00] VITALS: BP 130/67
[2018-01-13] MEDS ORDERED: AUGMENTIN 875-1 EACH PO (10:58)
[2018-01-13] MEDS ORDERED: IPRAT-ALBUT 0.5-3 ML INH (10:59)
[2018-01-13] MEDS ORDERED: PACERONE 200 M200 M1 PO (10:59)
[2018-01-13] MEDS ORDERED: TORSEMIDE20 MG PO (11:00)
[2018-01-13] MEDS ORDERED: COZAAR 25 MG TA25 M1 PO (11:00)
[2018-01-13] MEDS ORDERED: MUCINEX DM ER1 EAC1 PO (11:01)
[2018-01-13] MEDS ORDERED: PREDNISONE 20 M20 M1 PO (11:02)
[2018-01-13 11:50] VITALS: BP 101/55
[2018-01-13 16:20] VITALS: BP 103/51
[2018-01-13 19:16] VITALS: BP 107/59
[2018-01-14 05:02] VITALS: BP 103/60
[2018-01-14 06:47] LABS: CALCIUM 8.7 mg/dL (8.5-10.1); CREATININE 1.4 mg/dL (0.7-1.3)
[2018-01-14 07:54] VITALS: BP 93/58
[2018-01-14 11:23] VITALS: BP 89/54
[2018-01-14 15:29] VITALS: BP 94/54
== END 2018-01-14 17:08 | DRG 207 ==
LOC: ER 23:17 → ICU 01-02 02:03 → 2N 01-02 02:03 → ICU 01-02 03:01 → 2N 01-09 17:57
PROVIDERS: Emergency Medicine; Family Medicine; Hospitalist; Internal Medicine Cardiovascular Disease; Internal Medicine Nephrology; Internal Medicine Pulmonary Disease; Pediatrics
PROC: 5A1955Z Respiratory Ventilation, Greater than 96 Consecutive Hours (ICD-10-PCS; principal; 2018-01-02)
PROC: 0BH17EZ Insertion of Endotracheal Airway into Trachea, Via Natural or Artificial Opening (ICD-10-PCS; principal; 2018-01-02)
PROC: 5A09357 Assistance with Respiratory Ventilation, Less than 24 Consecutive Hours, Continuous Positive Airway Pressure (ICD-10-PCS; 2018-01-09)
PROC: 5A09357 Assistance with Respiratory Ventilation, Less than 24 Consecutive Hours, Continuous Positive Airway Pressure (ICD-10-PCS; 2018-01-10)
PROC: 5A09357 Assistance with Respiratory Ventilation, Less than 24 Consecutive Hours, Continuous Positive Airway Pressure (ICD-10-PCS; 2018-01-11)
DX: J96.01 Acute respiratory failure with hypoxia (principal); I46.9 Cardiac arrest, cause unspecified; I50.23 Acute on chronic systolic (congestive) heart failure; G93.41 Metabolic encephalopathy; J18.9 Pneumonia, unspecified organism; N17.9 Acute kidney failure, unspecified; I48.92 Unspecified atrial flutter; D68.59 Other primary thrombophilia; E87.0 Hyperosmolality and hypernatremia; I13.0 Hypertensive heart and chronic kidney disease with heart failure and stage 1 through stage 4 chronic kidney disease, or unspecified chronic kidney disease; G89.29 Other chronic pain; M54.9 Dorsalgia, unspecified; I48.91 Unspecified atrial fibrillation; E87.5 Hyperkalemia; I25.10 Atherosclerotic heart disease of native coronary artery without angina pectoris; I25.5 Ischemic cardiomyopathy; E78.5 Hyperlipidemia, unspecified; E11.22 Type 2 diabetes mellitus with diabetic chronic kidney disease; N18.9 Chronic kidney disease, unspecified; D72.829 Elevated white blood cell count, unspecified; D64.9 Anemia, unspecified; E87.6 Hypokalemia; R13.10 Dysphagia, unspecified; N40.0 Benign prostatic hyperplasia without lower urinary tract symptoms; I65.29 Occlusion and stenosis of unspecified carotid artery; I70.1 Atherosclerosis of renal artery; I95.9 Hypotension, unspecified; I27.20 Pulmonary hypertension, unspecified; E11.51 Type 2 diabetes mellitus with diabetic peripheral angiopathy without gangrene; Z95.1 Presence of aortocoronary bypass graft; Z79.4 Long term (current) use of insulin; Z87.891 Personal history of nicotine dependence; Z82.49 Family history of ischemic heart disease and other diseases of the circulatory system; Z79.01 Long term (current) use of anticoagulants
CPT/HCPCS: 10078; 10081

== ENCOUNTER 2018-01-14 15:24 | Inpatient (IN) | payer OTHER ==
[~2018-01-14] VITALS: Ht 180.3 cm; Wt 97.9 kg
--- NOTE | ~2018-01-14 | H ---
[facility] [place] [address] HISTORY AND PHYSICAL Name: RAQUELANRDADE NATALYA Room #: 509-P [facility] IN M.R.#: [id number] Admission: 01/14/18 Attend Phys: Kristofer Pettit MD Discharge: 01/21/18 Date of : 47 Report #: [id number] THIS REPORT FOR: //name// CC: Kristofer Medellin DATE OF SERVICE: 01/14/2018 HISTORY AND PHYSICAL/POST ADMISSION PHYSICIAN EVALUATION HISTORY OF PRESENT ILLNESS: The patient is a 72-year-old white male who was originally admitted to [facility] on 01/02/2018 with shortness of breath. While in the ED, he sustained cardiac arrest. CPR for 20-30 minutes was subsequently intubated and admitted to the Intensive Care Unit. He has since been extubated, has been on O2 with cardiac IV drips, diagnosed with acute hypoxic respiratory failure, persistent atrial fibrillation with rapid ventricular response, acute renal insufficiency, severe coronary artery disease, encephalopathy, toxic metabolic with possible hypoxic and severe peripheral arterial disease. He was noted to have a significant functional decline with mobility, ADLs and cognitive concerns and has now been admitted for acute in-hospital inpatient rehabilitation. PAST MEDICAL HISTORY: Includes diabetes, heart disease, hypertension, renal disease, coronary artery disease, hyperlipidemia, ischemic cardiomyopathy, paroxysmal atrial fibrillation, GERD, chronic kidney disease. Renal arterial stenosis, chronic back pain, atrial flutter, numerous DCCV 01/01/20182012, 03/12/2012, 04/20/2011, 09/01/2007. PAST SURGICAL HISTORY: Includes coronary artery bypass grafting, knee surgery, shoulder surgery, CABG x3 in 1980, CABG x4 in 1990. Right coronary artery grafts on 09/01/2007. FAMILY HISTORY: Includes heart disease, vascular disease. HABITS: Nonsmoker, Occasional alcohol. 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 Uses no assistive device to entry stairs. No stairs inside of the house. ALLERGIES: No known drug allergies. REVIEW OF SYSTEMS: No current complaints of chest pain, shortness of breath or abdominal discomfort. PHYSICAL EXAMINATION: [facility] [address] [place] [address] HISTORY AND PHYSICAL Name: ANDRADE GARCÍA [place] Room #: 509-P [facility] IN [facility]#: [id number] Admission: 01/14/18 Attend Phys: Kristofer Pettit MD Discharge: 01/21/18 Date of : 47 Report #: [id number] GENERAL: The patient is a 72-year-old white male in no obvious distress, he is alert. VITAL SIGNS: Temperature 97.4, pulse 69, respirations 18, blood pressure 103/52. NEUROLOGIC: There is a latency to his response. He tends to defer to his , appears to have some decreased insight into his deficits. He does have some decreased attention, needs some cues. Facies are symmetric. CHEST: He does have what looks like a skin burn over his sternal area from the shock. Sounded clear to auscultation. CARDIAC: He does have some irregular heartbeat, sounds irregularly irregular. ABDOMEN: Bowel sounds positive, nontender. GENITOURINARY AND RECTAL: Deferred. Functional range of motion of both upper extremities. Strength is grade 4-/5. DTRs are trace to 1. Lower extremities, no focal calf swelling, functional range of motion, strength is grade 4-/5. DTRs are trace to 1. Moderate assistance for lower body dressing, mod assist for sit to stand, mod assist to ambulate short distances with front-wheeled walker. ASSESSMENT: A 72-year-old white male with the following problem list: 1. Encephalopathy, metabolic and possibly hypoxic. 2. Medical complexity with generalized debilitation. 3. Acute hypoxic respiratory failure. 4. Status post cardiac arrest. 5. Atrial fibrillation with rapid ventricular rate. 6. Severe coronary artery disease. 7. Severe peripheral arterial disease. 8. Acute renal insufficiency. 9. Type 2 diabetes mellitus. 10. Chronic back pain. PLAN: The patient is admitted for acute in-hospital inpatient rehabilitation. From a postadmission physician evaluation perspective, there are no relevant changes since preadmission screening. Please see the above review of prior and current medical and functional conditions and comorbidities. Please see the patient's previous and current functional status. As far as risk of complications, the patient has multiple medical comorbidities as noted above. Initial plan of care involves the interdisciplinary acute inpatient rehabilitation program with goal of maximizing the patient's functional independence, so that he can hopefully return back to his prior living situation. Measurable functional goals would be for the patient to become modified independent with transfers, mobility, ADLs and improved cognition, so he can return back to the home setting. Prognosis is reasonably good with estimated length of stay probably at least 10 days to 2 weeks and likely longer if warranted. Potential barriers would include the patient's multiple medical comorbidities and decreased functional status. [facility] [address] [place] [address] HISTORY AND PHYSICAL Name: ANDRADE GARCÍA Room #: 509-P DIS IN M.R.#: [id number] Admission: 01/14/18 Attend Phys: Kristofer Pettit MD Discharge: 01/21/18 Date of : 47 Report #: [id number] The patient meets diagnostic criteria for an acute in-hospital inpatient rehabilitation stay. He meets medical necessity criteria. He does have the tolerance for therapies and has appropriate discharge goals back to the home setting. <ELECTRONICALLY SIGNED> By: Kristofer Pettit MD 01/23/18 1414 2106 2146 Kristofer Pettit MD /nt
--- NOTE | ~2018-01-14 | HC ---
[facility] [place] [address] CONSULTATION Name: ANDRADE GARCÍA Room #: 509-P [facility] IN M.R.#: [id number] Admission: 01/14/18 Attend Phys: Kristofer Pettit MD Discharge: Date of : 47 Report #: [id number] THIS REPORT FOR: //name// CC: Kristofer Medellin DATE OF SERVICE: 01/17/2018 NEUROBEHAVIORAL STATUS EXAMINATION ATTENDING PHYSICIAN: Kristofer Pettit MD HOB GRINDER: Bala Mueller, PhD CLINICAL PRESENTATION: The patient is a 72-year-old male admitted to the rehab unit at [facility] for a comprehensive inpatient rehabilitation program to improve functional mobility and activities of daily living and self-care secondary to deficits from a metabolic encephalopathy possibly related to hypoxic event. His diagnoses include medical complexity with generalized debility, acute hypoxic respiratory failure, status post cardiac arrest, atrial fibrillation with rapid ventricular rate, severe coronary artery disease, severe peripheral artery disease, acute renal insufficiency, type 2 diabetes mellitus and chronic back pain. A complete description of his medical condition and history can be found in his medical record. Neuropsychological consultation was requested to provide assistance in the assessment of cognitive and emotional status and to provide recommendations and services. Prior to this most recent admission, he was living independently with his in their home. 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 The patient has 2 children. His family is supportive. TECHNIQUES UTILIZED: Clinical interview, review of medical records, staff consultation and behavioral observation, mini mental status exam 2 standard version, clock drawing and verbal fluency assessment (letter and category), and family interview -- . EXAMINATION FINDINGS: The patient was alert and cooperative with the assessment. He was unable to accurately describe events surrounding his admission. He does have an amnestic episode that preceded his hospitalization and initial treatment. There is no report of auditory or visual hallucinations. There is no evidence of aphasia. His thoughts are logical and goal oriented. There is no evidence of thought disorder. However, the patient has [facility] [address] [place] [address] CONSULTATION Name: RAQUELANDRADE WILKINSON Room #: 509-P [facility] IN ..#: [id number] Admission: 01/14/18 Attend Phys: Kristofer Pettit MD Discharge: Date of : 46 Report #: [id number] decreased insight into the extent of cognitive deficits. He reports frustration that inspite of taking care of himself, he sustained this current cardiac event. Symptoms that are reported include intermittent periods of anxiety and frustration with his ability to remember specific events and depressed mood. There is no prior history of treatment for anxiety or depression. There is also no history of alcohol abuse, tobacco or caffeine. The patient has a longstanding history of vascular disease. He had a triple bypass surgery at age 35 in 1980 and a quadruple bypass surgery when he was in his 40s in 1992. Performance on the MMSE 2 brief version is extremely low with a raw score of 9/16 and T score of 2. He was 3/3 for initial registration, 4/5 for orientation to time, 1/[address] and 1/3 for immediate recall of 3 items after a brief time delay and distraction. Performance on the MMSE 2 standard version improved to a raw score 22/30, which is a T score of 26 and percentile rank of 1. He was 4/5 for serial 7's, 2/2 for naming, 1/1 for repetition. He was 3/3 for auditory comprehension, 1/1 for reading, writing and being able to copy a simple geometric design. The patient was accurate in his clock drawing and being able to set the hands at a designated time. Letter fluency assessment was in the borderline range with a raw score of 16, T score 35, percentile rank of 7. Category fluency was extremely low with a raw score of 24, T score of 26, percentile rank of 1. Overall, total fluency was extremely low with a raw score of 40, T score 28, and percentile rank of 1. The patient is presenting with deficits in immediate recall, sustained concentration and attention and verbal fluency. These deficits suggest a dysfunction within frontotemporal networks that can be related to hypoxic event. RECOMMENDATIONS: The patient will require assistance in the management of medication, nutrition along with finances upon discharge home. A followup neuropsych assessment will be of benefit to clarify the severity of cognitive deficits. In order to assist in the management of anxiety and frustration with his attempts to care for himself, emphasize that good management of his health care may have prevented a more severe medical event. The use of a memory/orientation notebook may also be of benefit to assist him in the development of compensatory strategies. [address] [address] CONSULTATION Name: ANDRADE GARCÍA Room #: 509-P [facility] IN M.R.#: [id number] Admission: 01/14/18 Attend Phys: Kristofer Pettit MD Discharge: Date of : 47 Report #: [id number] Thank you very much for allowing me to provide the consultation on this patient. <ELECTRONICALLY SIGNED> By: Bala Mueller, PhD 01/18/18 2025 1531 1703 Bala Mueller, PhD /nt
--- NOTE | ~2018-01-14 | PLAN ---
[facility] [place] [address] REHAB UNIT PLAN OF CARE Name: ANDRADE GARCÍA Room #: 509-P ADM IN M.R.#: [id number] Admission: 01/14/18 Attend Phys: Kristofer Pettit MD Discharge: Date of : 46 Report #: [id number] THIS REPORT FOR: //name// CC: Kristofer Medellin DATE OF SERVICE: 01/16/2018 PROGRESS NOTE AND OVERALL PLAN OF CARE SUBJECTIVE: The patient is seen back today in followup. No new complaints. Temperature 97.5, pulse 60, respirations 18, blood pressure 104/41. Transfers are contact guard. Gait contact guard 175 feet front-wheeled walker. In occupational therapy, lower body dressing is max assist, upper body is standby assistance. In speech therapy, he has mild to moderate comprehensive deficits. He is on a regular diet with all liquids. He has moderate cognitive deficits, moderate memory deficits. These will need to be reassessed after his admission here in rehabilitation. ASSESSMENT: 1. Encephalopathy, metabolic and possibly hypoxic. 2. Medical complexity with generalized debilitation. 3. Acute hypoxic respiratory failure. 4. Status post cardiac arrest. 5. Atrial fibrillation with rapid ventricular rate. 6. Severe coronary artery disease. 7. Severe peripheral arterial disease. 8. Acute renal insufficiency. 9. Type 2 diabetes mellitus. 10. Chronic back pain. PLAN: The overall plan of care is based on the preadmission screen, post-admission physician evaluation and information garnered from therapy assessments. 1. Estimated length of stay is going to be probably 10 days to 2 weeks or potentially longer if warranted pending progress. 2. Medical prognosis is reasonably good. 3. Anticipated interventions includes the interdisciplinary acute inpatient rehabilitation program with the goal of maximizing the patient's functional independence, so that he can return back to the home setting. We will also be working on cognitive issues with his noted encephalopathy. We will have the multiple consultant rn physicians continue to follow and he will be involved with the interdisciplinary acute inpatient rehabilitation team. 4. Anticipated functional outcomes would be for him to become modified independent with transfers, mobility and ADLs at least at a walker level along with improved cognition. [address] [address] REHAB UNIT PLAN OF CARE Name: ANDRADE GARCÍA [place] Room #: 509-P ADM IN .R.#: [id number] Admission: 01/14/18 Attend Phys: Kristofer Pettit MD Discharge: Date of : 46 Report #: [id number] 5. Discharge destination would be back home with his . 6. Expected therapy by discipline includes PT, OT and speech 1 hour per day each five days a week throughout the duration of the acute inpatient rehabilitation stay. By: 0934 1214 Kristofer Pettit MD /nt
[~2018-01-14 15:24] MED LIST changes: +AUGMENTIN 875-1 EACH PO; +COZAAR 25 MG TA25 M1 PO; +IPRAT-ALBUT 0.5-3 ML INH; +METOPROLOL SUCC50 MG PO; +MUCINEX DM ER1 EAC1 PO; +PACERONE 200 M200 M1 PO; +PREDNISONE 20 M20 M1 PO; +TORSEMIDE20 MG PO
[2018-01-14 17:15] VITALS: BP 115/58
[2018-01-14 20:00] VITALS: BP 103/52
[2018-01-15 05:46] LABS: HEMATOCRIT 35.9 % (42.0-52.0); HEMOGLOBIN 11.6 gm/dL (14.0-18.0); MCH 25.9 pg (26.0-34.0); MCHC 32.4 g/dL (28.0-37.0); MCV 79.9 fL (80.0-100.0); RBC 4.49 mil/uL (4.50-6.00); WBC 8.1 thou/uL (4.0-11.0)
[2018-01-15 05:58] LABS: CALCIUM 8.5 mg/dL (8.5-10.1); CREATININE 1.5 mg/dL (0.7-1.3)
[2018-01-15 07:30] VITALS: BP 107/58
[2018-01-15 19:53] VITALS: BP 104/41
[2018-01-16 06:03] LABS: CALCIUM 9.1 mg/dL (8.5-10.1); CREATININE 1.6 mg/dL (0.7-1.3); MAGNESIUM 1.7 mg/dL (1.8-2.4)
[2018-01-16 06:05] LABS: POTASSIUM 4.1 mmol/L (3.5-5.1)
[2018-01-16 07:30] VITALS: BP 103/58
[2018-01-16 20:03] VITALS: BP 100/49
[2018-01-17 01:10] LABS: GLYCOHEMOGLOBIN (HGB A1C) 7.3 % (4.8-5.6)
[2018-01-17 08:06] VITALS: BP 116/60
[2018-01-17 19:14] VITALS: BP 103/60
[2018-01-18 07:30] VITALS: BP 101/48
[2018-01-18 20:00] VITALS: BP 101/64
[2018-01-19 06:18] LABS: HEMOGLOBIN 10.4 gm/dL (14.0-18.0); MCH 25.4 pg (26.0-34.0); MCHC 31.5 g/dL (28.0-37.0); MCV 80.4 fL (80.0-100.0); RBC 4.1 mil/uL (4.50-6.00); RDW 22.3 % (10.5-14.5); WBC 4.2 thou/uL (4.0-11.0)
[2018-01-19 06:34] LABS: CALCIUM 8.9 mg/dL (8.5-10.1); CREATININE 1.7 mg/dL (0.7-1.3); MAGNESIUM 1.5 mg/dL (1.8-2.4); POTASSIUM 3.8 mmol/L (3.5-5.1)
[2018-01-19 07:38] VITALS: BP 99/59
[2018-01-19 20:26] VITALS: BP 99/45
[2018-01-20 08:20] VITALS: BP 102/50
[2018-01-20 10:06] VITALS: BP 85/57
[2018-01-20 13:13] VITALS: BP 93/61
[2018-01-20 20:21] VITALS: BP 95/53
[2018-01-21 03:11] LABS: HEMATOCRIT 32.5 % (42.0-52.0); HEMOGLOBIN 10.3 gm/dL (14.0-18.0); MCH 25.6 pg (26.0-34.0); MCHC 31.7 g/dL (28.0-37.0); MCV 80.8 fL (80.0-100.0); RBC 4.02 mil/uL (4.50-6.00); RDW 22.8 % (10.5-14.5); WBC 4.7 thou/uL (4.0-11.0)
[2018-01-21 03:41] LABS: CALCIUM 9.3 mg/dL (8.5-10.1); CREATININE 2.2 mg/dL (0.7-1.3); MAGNESIUM 1.5 mg/dL (1.8-2.4); POTASSIUM 3.9 mmol/L (3.5-5.1)
[2018-01-21 07:15] VITALS: BP 97/56
[2018-01-21] MEDS ORDERED: PACERONE 200 M200 M1 PO (09:36)
[2018-01-21] MEDS ORDERED: DEMADEX20 MG PO (09:36)
[2018-01-21] MEDS ORDERED: METOPROLOL SUCC50 MG PO (09:36)
[2018-01-21 10:50] VITALS: BP 97/56
== END 2018-01-21 12:56 | disposition home or self-care (01) | DRG 70 ==
LOC: ENTRNSPT 01-21 12:46
PROVIDERS: Nurse Practitioner Family; Physical Medicine & Rehabilitation
DX: G93.41 Metabolic encephalopathy (principal); J96.01 Acute respiratory failure with hypoxia; I50.23 Acute on chronic systolic (congestive) heart failure; I48.92 Unspecified atrial flutter; G93.1 Anoxic brain damage, not elsewhere classified; N17.9 Acute kidney failure, unspecified; D68.59 Other primary thrombophilia; R53.81 Other malaise; I25.10 Atherosclerotic heart disease of native coronary artery without angina pectoris; R13.10 Dysphagia, unspecified; I70.1 Atherosclerosis of renal artery; E83.42 Hypomagnesemia; E11.51 Type 2 diabetes mellitus with diabetic peripheral angiopathy without gangrene; G89.29 Other chronic pain; M54.9 Dorsalgia, unspecified; E78.5 Hyperlipidemia, unspecified; I25.5 Ischemic cardiomyopathy; E87.6 Hypokalemia; B37.9 Candidiasis, unspecified; E11.22 Type 2 diabetes mellitus with diabetic chronic kidney disease; N18.9 Chronic kidney disease, unspecified; I48.0 Paroxysmal atrial fibrillation; Z86.74 Personal history of sudden cardiac arrest; Z95.1 Presence of aortocoronary bypass graft; Z82.49 Family history of ischemic heart disease and other diseases of the circulatory system
CPT/HCPCS: 10112

== ENCOUNTER → 2018-02-19 | Outpatient (CLI) | payer OTHER ==
[~2018-02-19] MED LIST changes: +DOXYCYCLINE HYC50 MG PO; +LOPRESSOR100 M1 PO
== END ==
LOC: RAD 08:51
DX: J84.9 Interstitial pulmonary disease, unspecified (principal)

== ENCOUNTER → 2019-03-24 | Outpatient (CLI) | payer OTHER | END | disposition home or self-care (01) | LOC: SJCVCIMAG 11:23 | DX: I65.23 Occlusion and stenosis of bilateral carotid arteries (principal); R94.31 Abnormal electrocardiogram [ECG] [EKG]; I25.10 Atherosclerotic heart disease of native coronary artery without angina pectoris; E78.5 Hyperlipidemia, unspecified; I10 Essential (primary) hypertension; I12.9 Hypertensive chronic kidney disease with stage 1 through stage 4 chronic kidney disease, or unspecified chronic kidney disease; E11.22 Type 2 diabetes mellitus with diabetic chronic kidney disease; N18.3 Chronic kidney disease, stage 3 (moderate); I48.0 Paroxysmal atrial fibrillation; Z95.1 Presence of aortocoronary bypass graft ==

== ENCOUNTER 2019-06-13 01:41 | Inpatient (IN) | payer OTHER ==
[2019-06-13] VITALS (13 sets, daily range): BP systolic 81–117; BP diastolic 36–63
[~2019-06-13] VITALS: Ht 180.3 cm; Wt 95.4 kg
--- NOTE | ~2019-06-13 | EEG ---
[facility] [address] ELECTROENCEPHALOGRAM Name: ANDRADE GARCÍA [place] Room #: 247-P ADM IN M.R.#: [id number] Admission: 06/13/19 Attend Phys: Bala Medellin MD Discharge: Date of : 46 Report #: [id number] THIS REPORT FOR: //name// CC: Bala Medellin DATE OF SERVICE: 06/28/2019 This patient is being evaluated for altered mental status. EEG was done by placing the electrode by standard 10-20 system of electrode placement. Both referential and sequential montages were used for recording. Background activity goes to about 7 Hz and about 15 microvolt. This patient's EEG background activity fluctuates. Sometime, it goes much slower than that. The patient is unresponsive and it is difficult to tell about his drowsiness status. Photic stimulation is unremarkable. Throughout the record, no active epileptiform activity was noticed. IMPRESSION: This is an abnormal EEG because it is disorganized and poorly formed and is intermixed with a lot of theta range slowing on both sides. That is a nonspecific abnormality, which can occur with multiple abnormalities, so which can occur with multiple etiologies like encephalopathy, effect of psychotropic medication, etc. No active epileptiform activity was noticed during this record. Well-defined cortical activity is present, although it is abnormal as described above. Clinical correlation is recommended. Thank you very much for this referral. By: 1619 1629 John Grey MD /shahbaz
--- NOTE | 2019-06-13 01:50 | NUR ---
PORTABLE X-RAY AT BEDSIDE
[2019-06-13 02:06] LABS: ABSOLUTE NEUTROPHILS 4.1 thou/uL (1.4-8.2); BASOPHILS 0.9 % (0.0-2.0); EOSINOPHILS 5.4 % (0.0-3.0); HEMATOCRIT 27.9 % (42.0-52.0); HEMOGLOBIN 8.8 gm/dL (14.0-18.0); LYMPHOCYTES 29.2 % (24.0-44.0); MCH 25.7 pg (26.0-34.0); MCHC 31.6 g/dL (28.0-37.0); MCV 81.2 fL (80.0-100.0); MONOCYTES 11.8 % (1.0-8.0); PLATELET COUNT 225 thou/uL (150-400); POLYS 52.7 % (36.0-66.0); RBC 3.43 mil/uL (4.50-6.00); RDW 19.1 % (10.5-14.5); WBC 7.9 thou/uL (4.0-11.0)
[2019-06-13 02:13] LABS: ANION GAP 12 mmol/L (7-16); BUN 67 mg/dL (7-18); CALCIUM 8.9 mg/dL (8.5-10.1); CHLORIDE 98 mmol/L (98-107); CO2 24 mmol/L (21-32); GLUCOSE 228 mg/dL (74-106); POTASSIUM 3.8 mmol/L (3.5-5.1); SODIUM 134 mmol/L (136-145)
[2019-06-13] MEDS ORDERED: METOLAZONE 5 MG5 MG PO (02:13)
[2019-06-13] MEDS ORDERED: FLOVENT HFA12 G1 INH (02:14)
[2019-06-13] MEDS ORDERED: PROAIR HFA8.5 GM INH (02:14)
[2019-06-13] MEDS ORDERED: ZYRTEC10 M5 PO (02:20)
[2019-06-13] MEDS ORDERED: VITAMIN D31250 MC1 PO (02:21)
[2019-06-13 02:23] LABS: ALBUMIN 3.7 g/dL (3.4-5.0); DIRECT BILIRUBIN 0.4 mg/dL (<0.1-0.2); LIPASE 394 U/L (73-393); SGOT 24 U/L (15-37); SGPT 37 U/L (30-65); TOTAL BILIRUBIN 0.9 mg/dL (<0.1-1.0); TOTAL PROTEIN 8.2 g/dL (6.4-8.2); TROPONIN-I <0.06 ng/mL (<0.06)
--- NOTE | 2019-06-13 05:03 | NUR ---
PATIENT IS A NEW ADMISSION TO THE UNIT THIS SHIFT. HE ARRIVED VIA CART FROM THE ER AND WAS ABLE TO AMBULATE TO THE BED WITH STANDBY ASSISTANCE INCIDENT FREE. PATIENT IS FULLY ALERT AND ORIENTED AND ABLE TO PARTICIPATE IN HIS ADMISSION. NURSE TO COMPLETE ADMISSION PROCESS AND INITIATE PLAN OF CARE.
[2019-06-13 06:06] LABS: CHOLESTEROL 67 mg/dL (<200); HDL CHOLESTEROL 20 mg/dL (>40); LDL CHOLESTEROL 41 mg/dL (<100); TC:HDL 3.4 Ratio (Not establshd); TRIGLYCERIDE 33 mg/dL (<150); VLDL 7 mg/dL (<40)
[2019-06-13 06:07] LABS: SERUM ASSESSMENT Clear
--- NOTE | 2019-06-13 11:18 | EKG ---
[facility] [place] [address] ELECTROCARDIOGRAM REPORT Name: ANDRADE GARCÍA Room #: 200-I ADM IN M.R.#: [id number] Admission: 06/13/19 Attend Phys: Servando Martinez MD Discharge: Date of : 46 Report #: [id number] THIS REPORT FOR: cc: Bala Medellin MD, Neal A. MD Lundgren,Preet Ireland MD [facility] ~ THIS REPORT FOR: //name// [facility] ED Test Date: 2019-06-13 Test Time: 01:48:04 Pat Name: ANDRADE GARCÍA Department: Room: 200 I Gender: M Keyboard Specialist: little gray : 1945 Requested By: Molly Salter Order Number: [id number] MD: Preet Jarrett Measurements Intervals [place] Rate: 118 P: NV: QRS: 17 QRSD: 109 T: 182 QT: 329 QTc: 462 Interpretive Statements Atrial fibrillation with a rapid ventricular response Occasional premature ventricular or aberrantly conducted supraventricular complexes Incomplete left bundle branch block Repol abnrm, severe global ischemia (LM/MVD) Compared to ECG 02/09/2018 06:54:28 ST and T wave abnormality is more pronounced Electronically Signed On 06-13-2019 11:16:38 CDT by Preet Jarrett [email or web address] <ELECTRONICALLY SIGNED> By: Preet Jarrett MD, [facility] 06/13/19 1116 7 0148 Preet Jarrett MD, [facility] /EPI
--- NOTE | 2019-06-13 11:18 | EKG ---
[facility] [place] [address] ELECTROCARDIOGRAM REPORT Name: ANDRADE GARCÍA Room #: 200-I ADM IN M.R.#: [id number] Admission: 06/13/19 Attend Phys: Servando Martinez MD Discharge: Date of : 46 Report #: [id number] THIS REPORT FOR: cc: Bala Medellin MD, Neal A. MD Lundgren,Preet Ireland MD FAC ~ THIS REPORT FOR: //name// [facility] ED Test Date: 2019-06-13 Test Time: 02:18:10 Pat Name: ANDRADE GARCÍA Department: Room: [facility] Gender: M Sales Service Assistant: emily : 1945 Requested By: Molly Salter Order Number: [id number] MD: Preet Jarrett Measurements Intervals [place] Rate: 125 P: 0 ME: 88 QRS: 15 QRSD: 109 T: 167 QT: 335 QTc: 484 Interpretive Statements Atrial fibrillation with a rapid ventricular response Multiple ventricular premature complexes Repol abnrm suggests ischemia, diffuse leads Compared to ECG 02/09/2018 06:54:28 No significant change was found Electronically Signed On 06-13-2019 11:17:18 CDT by Preet Jarrett [email or web address] <ELECTRONICALLY SIGNED> By: Preet Jarrett MD, FAC 06/13/19 1117 7 Preet Jarrett MD, FAC /EPI
--- NOTE | 2019-06-13 11:21 | EKG ---
[facility] [place] [address] ELECTROCARDIOGRAM REPORT Name: ANDRADE GARCÍA Room #: 200-I ADM IN M.R.#: [id number] Admission: 06/13/19 Attend Phys: Servando Martinez MD Discharge: Date of : 47 Report #: [id number] THIS REPORT FOR: cc: Bala Medellin MD, Neal A. MD Lundgren,Preet Ireland MD [facility] ~ THIS REPORT FOR: //name// [facility] Test Date: 2019-06-13 Test Time: 10:31:59 Pat Name: ANDRADE GARCÍA Department: Room: 200 I Gender: M Manager Installation: Yolanda KHAN : 1945 Requested By: Juana Fofana Order Number: [id number] MD: Preet Jarrett Measurements Intervals [place] Rate: 73 P: RI: QRS: 48 QRSD: 96 T: 180 QT: 356 QTc: 393 Interpretive Statements Atrial fibrillation Ventricular premature complex Repol abnrm, severe global ischemia (LM/MVD) Compared to ECG 02/09/2018 06:54:28 Ventricular response has slowed Electronically Signed On 06-13-2019 11:19:36 CDT by Preet Jarrett [email or web address] <ELECTRONICALLY SIGNED> By: Preet Jarrett MD, FAC 06/13/19 1119 1031 1031 Preet Jarrett MD, FAC /EPI
[2019-06-13 13:43] LABS: URINE BILIRUBIN NEGATIVE (Negative); URINE BLOOD 2+ (Negative); URINE CLARITY CLEAR; URINE COLOR YELLOW; URINE GLUCOSE-RANDOM* 1+ (Negative); URINE KETONES NEGATIVE (Negative); URINE LEUKOCYTES NEGATIVE (Negative); URINE NITRITE NEGATIVE (Negative); URINE PROTEIN (DIPSTICK) 1+ (Negative); URINE UROBILINOGEN 0.2 E.U./dl (0.2-1.0)
[2019-06-13 13:48] LABS: URINE CREATININE-RANDOM* 56.4 mg/dL
[2019-06-13 14:00] LABS: FINE GRANULAR CASTS 0-3 Few /LPF (None Seen); SQUAMOUS None Seen /LPF (0-3); URINE WBC 0-5 Rare /HPF (0-5)
[2019-06-13 14:01] LABS: BACTERIA 1-9 Few /HPF (None Seen); CRYSTALS None Seen /LPF (None Seen); URINE RBC 0-2 Rare /HPF (0-2)
--- NOTE | 2019-06-13 18:15 | NUR ---
ASSESSMENT CHARTED. PT ALERT AND ORIENTED. VSS. RECEIVED PRN PAIN MED FOR CHEST PAIN. CHEST PAIN PROTOCAL INITIATED. DR. LANE AND DR. CARRERA NOTIFIED. NEW ORDERS RECEIVED. HR ELEVATED ORDERS GIVEN TO START CARDIZEM GTT. WILL CONTINUE TO MONITOR.
--- NOTE | 2019-06-13 19:29 | NUR ---
CARDIZEM DRIP STOPPED @ 1720. HR. 60'S TO 80'S SUSTAINED.
[2019-06-13 22:45] LABS: BASOPHILS 0.5 % (0.0-2.0); MCV 81.4 fL (80.0-100.0)
[2019-06-13 22:46] LABS: ABSOLUTE NEUTROPHILS 6.7 thou/uL (1.4-8.2); EOSINOPHILS 1.3 % (0.0-3.0); HEMATOCRIT 24.6 % (42.0-52.0); HEMOGLOBIN 7.9 gm/dL (14.0-18.0); LYMPHOCYTES 7.6 % (24.0-44.0); MCH 26.2 pg (26.0-34.0); MCHC 32.2 g/dL (28.0-37.0); MONOCYTES 9.1 % (1.0-8.0); PLATELET COUNT 166 thou/uL (150-400); POLYS 81.5 % (36.0-66.0); RBC 3.02 mil/uL (4.50-6.00); RDW 19.3 % (10.5-14.5); WBC 8.2 thou/uL (4.0-11.0)
[2019-06-13 22:49] LABS: CALCIUM 8.6 mg/dL (8.5-10.1); POTASSIUM 4.6 mmol/L (3.5-5.1)
--- NOTE | 2019-06-13 23:45 | NUR ---
AROUND 2029 NURSE ENTERED PATIENTS ROOM TO ADMINISTER EVENING MEDICATIONS. NURSE BECAME CONCERNED WITH PATIENTS LOW BLOOD PRESSURE AND PATIENT STARTED PRODUCING SMALL AMOUNTS OF HEMOPTYSIS WITH COUGHING. BLOOD PRESSURE FELL INTO 80'S AND RAPID RESPONSE WAS CALLED. NURSE RECEIVED ORDERS FROM CARDIOLOGY FOR CHEST XRAY, 250 CC BOLUS OF NS, AND TRANSFER TO ICU. PATIENT HAD NO REPORTS OF ACUTE CHEST PAIN DURING THIS EPISODE BUT STILL REPORTS HEAVINESS. PATIENTS OXYGEN INCREASED TO FOUR LITERS VIA NASAL CANNULA IN RESPONSE TO SHORTNESS OF AIR. PATIENT TRANSFERRED AROUND 2300 WITHOUT INCIDENT. FAMILY IS AWARE OF PATIENTS CONDITION AND TRANSFER.
[2019-06-14] VITALS (33 sets, daily range): BP systolic 80–120; BP diastolic 41–72
[2019-06-14 03:07] LABS: GLYCOHEMOGLOBIN (HGB A1C) 6.8 % (4.8-5.6)
--- NOTE | 2019-06-14 03:51 | NUR ---
ASSESSMENT: PT TRANSFERED TO THE UNIT ROOM 248 FROM CCU AT APPROXIMATELY 2330. PT WAS ACCOMPANIED BY STAFF MEMEBERS. FAMILY (SON) WAS NOTIFIED BY PT. HR IN THE 120'S WHILE AWAKE, DOES DECREASE TO 80-88 WHEN RESTING AND ASLEEP. PT IS ANXIOUS AT TIMES. BP 98-100/50-60. SATING 95-98% ON 4 LITERS OXYGEN PER NC. CURRENTLY DENIES CP, INITIALLY WAS ADMITTED WITH SUCH COMPLAINT. STAND ON SIDE OF BED TO USE URINAL. BM DATED 06/13/19. AFIB PER MONITOR. NTG HELD SCHEDULED FOR 0000 AND WILL HOLD FOR 0600 DOSE. DENIES N/V TOLERATING PO INTAKE OF WATER, FR OF 2 LITERS. PENDING MAG AND TROP FOR 8AM, REG LAB BMP AND RENAL PANEL FOR AM LAB. RENAL US SCHEDULED. PCXR IN THE AM. PT HAS A NON-PRODUCTIVE COUGH, NO OFFENSE TAKEN WHEN GIVEN A MASK TO WEAR R/T PT DOES NOT COVER COUGH ASKED SEVERAL TIMES. PT POLITE, PLEASANT AND COOPERATIVE. WILL CONTINUE TO MONITOR.
--- NOTE | 2019-06-14 06:04 | NUR ---
ASSESSMENT: PT C/O FEELING NOT ABLE TO BREATH, SATS WERE 90% RT TREATMENT ADMINISTERED AND PT PLACED ON VENTIMASK @ 40%. SATS 93-94% CURRENTLY. GUAIFENISIN GIVEN FOR A NON-PRODUCTIVE COUGH. PT'S HR WAS SUSTAINED TIMES 2 HRS AT 120-122, 0900 SCHEDULED AMIODARONE GIVEN EARLY R/T ELEVEATED HR,. BP 112/52. ON 06/13/19 THE 2100 DOSE OF AMIODARONE WAS NOT GIVEN. A-FIB/A-FLUTTER PER MONITOR AT THIS TIME, WILL CONTINUE TO MONITOR.
--- NOTE | 2019-06-14 08:35 | EKG ---
[facility] [place] [address] ELECTROCARDIOGRAM REPORT Name: ANDRADE GARCÍA Room #: 248-P ADM IN M.R.#: [id number] Admission: 06/13/19 Attend Phys: Servando Martinez MD Discharge: Date of : 47 Report #: [id number] THIS REPORT FOR: cc: Bala Medellin MD, Neal A. MD Lundgren,Preet Ireland MD [facility] ~ THIS REPORT FOR: //name// [facility] Test Date: 2019-06-13 Test Time: 12:27:55 Pat Name: ANDRADE GARCÍA Department: Room: 248 Gender: M Nail Artist: Yolanda KHAN : 1945 Requested By: Preet Jarrett Order Number: [id number] MD: Preet Jarrett Measurements Intervals [place] Rate: 120 P: 219 CT: 127 QRS: 36 QRSD: 100 T: 202 QT: 307 QTc: 434 Interpretive Statements Atrial fibrillation with a rapid ventricular response with occasional premature ventricular complexes Nonspecific intraventricular conduction delay Repol abnrm, severe global ischemia (LM/MVD) Compared to ECG 06/13/2019 10:31:59 Heart rate has increased Electronically Signed On 06-14-2019 8:34:25 CDT by Preet Jarrett [email or web address] <ELECTRONICALLY SIGNED> By: Preet Jarrett MD, [facility] 06/14/19 0834 1227 1227 Preet Jarrett MD, [facility] /EPI
[2019-06-14 09:13] LABS: MAGNESIUM 2.2 mg/dL (1.8-2.4)
[2019-06-14 09:24] LABS: TROPONIN-I 0.81 ng/mL (<0.06)
[2019-06-14 09:25] LABS: ALBUMIN 3.8 g/dL (3.4-5.0); CREATININE 4.1 mg/dL (0.7-1.3); PHOSPHORUS 4.3 mg/dL (2.5-4.9); POTASSIUM 4.7 mmol/L (3.5-5.1)
[2019-06-14 09:28] LABS: HEMATOCRIT 25.4 % (42.0-52.0); HEMOGLOBIN 8.1 gm/dL (14.0-18.0); MCH 26.2 pg (26.0-34.0); MCHC 31.8 g/dL (28.0-37.0); MCV 82.6 fL (80.0-100.0); RBC 3.08 mil/uL (4.50-6.00); RDW 19.4 % (10.5-14.5); WBC 10.1 thou/uL (4.0-11.0)
--- NOTE | 2019-06-14 10:22 | 2DMMODE ---
[facility] [place] [address] 2 D/M-MODE ECHOCARDIOGRAM Name: ANDRADE GARCÍA RAY Room #: 248-P ADM IN M.R.#: [id number] Admission: 06/13/19 Attend Phys: Bala Medellin MD Discharge: Date of : 47 Report #: [id number] THIS REPORT FOR: cc: Bala Medellin MD, Neal A. MD Lammoglia, Francisco J. MD ~ APPROVED REPORT Study performed: 06/14/2019 08:55:45 EXAM: Comprehensive 2D, Doppler, and color-flow Echocardiogram Patient Location: ICU Room #: 248 Status: routine BSA: 2.28 HR: 118 bpm BP: 112/52 mmHg Rhythm: Atrial Fibrillation Other Information Study Quality: Fair Technically limited study due to body habitus and patient sitting up in bed, SOB. Indications Chest pain, shortness of breath. Hx: CABG x2, Stents, ISCM, Afib, HTN, HLP, DM. Echo Enhancing Agent Indication: Endocardial border delineation Agent(s) / Amount(s) Used: Optison 6 cc 2D Dimensions RVDd: 42.64 mm IVSd: 10.79 (7-11mm) LVOT Diam: 19.81 (18-24mm) LVDd: 61.00 mm PWd: 8.70 (7-11mm) Ascending Ao: 31.70 (22-36mm) LVDs: 44.36 (25-40mm) Aortic Root: 31.76 mm Volumes Left Atrial Volume (Systole) Single Plane 4CH: 71.15 mL Single Plane 2CH: 65.[address] [facility] [place] [address] 2 D/M-MODE ECHOCARDIOGRAM Name: ANDRADE GARCÍA [place] Room #: 248-P [facility] IN .#: [id number] Admission: 06/13/19 Attend Phys: Bala Medellin, Discharge: Date of : 46 Report #: [id number] Aortic Valve AoV Peak Zhen.: 1.74 m/s AO Peak Gr.: 12.23 mmHg LVOT Max P.08 mmHg LVOT Max V: 1.12 m/s PABLO Vmax: 1.99 cm2 Mitral Valve MV Decel. Time: 199.16 ms MV E Max Zhen.: 1.63 m/s Pulmonary Valve PV Peak Zhen.: 1.03 m/s PV Peak Gr.: 4.20 mmHg Tricuspid Valve TR Peak Zhen.: 3.16 m/s RAP Estimate: 15.00 mmHg TR Peak Gr.: 40.02 mmHg PA Pressure: 55.00 mmHg Left Ventricle Left ventricle is mildly dilated. severe global with superimposed segmental abnormalities There is normal left ventricular wall thickness. Left ventricular systolic function is severely decreased. LVEF is 30%. This study is not technically sufficient to allow evaluation of the LV diastolic function due to atrial fibrillation. Right Ventricle Right ventricle is not well visualized. Appears mildly dilated and mildy hypokinetic Atria Left atrium is moderately dilated. Right atrium is mildly dilated. Aortic Valve Aortic valve is moderately calcified. No aortic regurgitation is present. There is no aortic valvular stenosis. Mitral Valve The mitral valve is normal in structure. Mild mitral annular calcification. Moderate mitral regurgitation. No evidence of mitral valve stenosis. Tricuspid Valve The tricuspid valve is normal in structure. Mild tricuspid regurgitation. Estimated PAP is 50-55mmHg. [facility] [place] [address] 2 D/M-MODE ECHOCARDIOGRAM Name: ANDRADE GARCÍA Room #: 248-P [facility] IN .R.#: [id number] Admission: 06/13/19 Attend Phys: Bala Medellin, Discharge: Date of : 47 Report #: [id number] Pulmonic Valve The pulmonary valve is normal in structure. Trace pulmonic regurgitation. Great Vessels The aortic root is normal in size. The ascending aorta is normal in size. IVC is dilated and collapses <50% with inspiration. Pericardium There is no pericardial effusion. <Conclusion> Left ventricle is mildly dilated. LVEF is 30%. severe global with superimposed segmental abnormalities Right ventricle is not well visualized. Appears mildly dilated and mildy hypokinetic Left atrium is moderately dilated. Right atrium is mildly dilated. Aortic valve is moderately calcified. No aortic regurgitation is present. There is no aortic valvular stenosis. The mitral valve is normal in structure. Mild mitral annular calcification. Moderate mitral regurgitation. The tricuspid valve is normal in structure. Mild tricuspid regurgitation. Estimated PAP is 50-55mmHg. The pulmonary valve is normal in structure. Trace pulmonic regurgitation. There is no pericardial effusion. <ELECTRONICALLY SIGNED> By: Jayme Trpip MD 06/14/19 1021 1021 1021 Jayme Tripp MD /INF
--- NOTE | 2019-06-14 11:34 | EKG ---
[facility] [address] ELECTROCARDIOGRAM REPORT Name: ANDRADE GARCÍA Room #: 248-P ADM IN M.R.#: [id number] Admission: 06/13/19 Attend Phys: Bala Medellin MD Discharge: Date of : 47 Report #: [id number] THIS REPORT FOR: cc: Bala Medellin MD, Neal A. MD Couchonnal, Luis F. MD ~ THIS REPORT FOR: //name// [facility] Test Date: 2019-06-14 Test Time: 07:31:39 Pat Name: ANDRADE GARCÍA Department: Room: 248 P Gender: M Executive Asst: KARLA : 1945 Requested By: Preet Jarrett Order Number: [id number] MD: Jonathan Mane Measurements Intervals [place] Rate: 119 P: MD: QRS: 29 QRSD: 96 T: 191 QT: 305 QTc: 430 Interpretive Statements Afib/aflutter with RVR Repol abnrm, severe global ischemia (LM/MVD) Baseline wander in lead(s) V2 Compared to ECG 06/13/2019 10:31:59 Electronically Signed On 06-14-2019 11:32:26 CDT by Jonathan Mane [email or web address] <ELECTRONICALLY SIGNED> By: Jonathan Mane MD 06/14/19 1132 0 0 Jonathan Mane MD /EPI
--- NOTE | 2019-06-14 14:09 | NUR ---
chart review, unable to speak with pt rt on ventmask. noted in chart pt lives with spouse irina, been on acute rehab 5n in past and has [facility] in the past. cm called to check on how pt irina was doing, she was tearful during visit " oh thank you for checking. i got to face time with him today, i understand he not doing that great"/. active listing and support during phone call. intro to cm, dcp and transition of care. " just us here, kids live out of state. live in house, has not driving in 3 months, no home oxygen. has cane. was independent, he would need some assistance at time. [facility] thank you i am in health care as well and it is crazy time." irina. will cont following as needed for dc needs.
[2019-06-14 16:23] LABS: TOTAL BILIRUBIN 1.8 mg/dL (<0.1-1.0)
--- NOTE | 2019-06-14 19:24 | NUR ---
BUSY DAY FOR THIS UNFORTUNATE PATIENT. MULTIPLE COMORBIDITIES. RESPIRATORY AND CARDIAC DIFFICULTIES. AFIB PER TELE. HYPOTENSIVE, TACHYCARDIC DESPITE AMIODARONE DRIP. MULTIPLE TESTS. I SWABBED HIM FOR COVID-19 LATE IN THE DAY, MOVED HIM TO R/O COVID ROOM 236 AT 1820. REPORT TO LORNE SPENCE.
--- NOTE | 2019-06-14 21:01 | NUR ---
PT AGREED TO BE ON BIPAP DUE TO INCREASED O2 NEEDED AND INCREASED MORE SOA. NOTIFIED HIS REGARDING OF PLAN OF TREATMENT TONIGHT. WILL NOTIFY HER WITH ANY CHANGES OF CONDITIONS.
[2019-06-15] VITALS (40 sets, daily range): BP systolic 89–118; BP diastolic 49–67
[2019-06-15 04:08] LABS: HCO3 19.1 mmol/L (22.0-26.0); PCO2 40.9 mmHg (35.0-45.0); PO2 109.6 mmHg (80.0-100.0); pH 7.288 (7.360-7.450); sO2 97.5 % (92.0-98.0)
--- NOTE | 2019-06-15 05:31 | NUR ---
Call ABG result to , no new order at this time.
[2019-06-15 05:33] LABS: ABSOLUTE NEUTROPHILS 13.3 thou/uL (1.4-8.2); BASOPHILS 0.1 % (0.0-2.0); HEMATOCRIT 24.6 % (42.0-52.0); HEMOGLOBIN 7.9 gm/dL (14.0-18.0); LYMPHOCYTES 3.8 % (24.0-44.0); MCH 26.1 pg (26.0-34.0); MCV 81.7 fL (80.0-100.0); MONOCYTES 1.6 % (1.0-8.0); PLATELET COUNT 162 thou/uL (150-400); POLYS 94.5 % (36.0-66.0); RBC 3.01 mil/uL (4.50-6.00); RDW 19.8 % (10.5-14.5); WBC 14.1 thou/uL (4.0-11.0)
[2019-06-15 05:42] LABS: ALBUMIN 3.5 g/dL (3.4-5.0); CREATININE 4.9 mg/dL (0.7-1.3); PHOSPHORUS 4.4 mg/dL (2.5-4.9)
[2019-06-15 06:15] LABS: POTASSIUM 5.9 mmol/L (3.5-5.1)
--- NOTE | 2019-06-15 06:44 | NUR ---
Potassium result is showing slight hemolyze, will redraw potassium level.
--- NOTE | 2019-06-15 09:42 | NUR ---
PATIENT TAKEN OFF BIPAP THIS AM PER RT. PATIENT ON 4L NC. PATIENT SPO2 READING HIGH 80S LOW 90'S. PATIENT TITRATED UP TO 5L. PATIENTS CREATINE IS 4.9 AND K+ 5.5. DR PENALOZA AND EDGAR AWARE. NO NEW ORDERS. PATIENT SITTING UP EATING BREAKFAST AT THIS TIME.
--- NOTE | 2019-06-15 14:05 | NUR ---
SW reviewed chart. Pt was moved into Enhanced Isolation to r/o COVID-19. Pt required bipap and is now on 5L O2 via NC. Pt will need therapy evaluations pending COVID test results. SW is following to assist as needed with discharge planning.
[2019-06-16] VITALS (22 sets, daily range): BP systolic 88–119; BP diastolic 51–76
[2019-06-16 07:01] LABS: ALBUMIN 3.5 g/dL (3.4-5.0); CALCIUM 8.7 mg/dL (8.5-10.1); PHOSPHORUS 5.7 mg/dL (2.5-4.9); POTASSIUM 5.7 mmol/L (3.5-5.1)
[2019-06-16 07:02] LABS: CREATININE 6.3 mg/dL (0.7-1.3)
--- NOTE | 2019-06-16 07:30 | NUR ---
NO CHANGES OVERNIGHT. PT WORE BIPAP FOR FOUR HOURS OVERNIGHT. C/O NOT SLEEPING WELL, WOULD LIKE TO TAKE MELATONIN TONIGHT FOR BETTER SLEEP. PT CONTINUES TO HAVE SOME SOA AND IS COUGHING UP SPUTUM FREQUENTLY. DENIES PAIN. PT IS PROGRESSING. WILL CONTINUE TO MONITOR.
--- NOTE | 2019-06-16 08:45 | NUR ---
ASSUMMED CARE AT 0700 THIS AM. REG INSULIN AND D50 GIVEN FOR ELEVATED SERUM POTASSIUN AND RT AT BEDSIDE GIVING ALBUTEROL TREATMENT.
--- NOTE | 2019-06-16 10:30 | NUR ---
PATIENT C/O CHEST PAIN AT 0900 AFTER ALBUTEROL TREATMENT AND COUGHING. EKG OBTAINED L TILLUS SPEECH AND LANGUAGE ASSISTANT NOTIFIED AND ORDERS NOTED. GI COCKTAIL GIVEN WITH SOME RELIEF, C/O ABD DISTENTION AND CONSTIPATION. WILL CONTINUE TO MONITOR.
--- NOTE | 2019-06-16 11:00 | NUR ---
SPOKE WITH CONCERNING MEDICATIONS FOR SLEEP AND CONSTIPATION. SHE STATED THAT WARM PRUNE JUICE HELPS ALSO. GIVEN WARM PRUNE JUICE. PATIENT STATES THAT HE DOESN'T WANT LUNCH. REFUSED BREAKFAST.
--- NOTE | 2019-06-16 12:04 | NUR ---
on-going assessment: CM REVIEWED CHART AND SPOKE WITH ATTENDING. PT IS SLOWLY PROGRESSING TOWARDS GOALS, PT/OT WAS ORDERED TO EVAL PT. CM SPOKE WITH PTS JORDY AND WAITING TO SEE HOW PT PROGRESSES WITH THERAPY HE HAS HAD HH IN THE PAST AND BEEN TO 5N. PT IS STILL CURRENTLY ON 5L OXYGEN AND REPORTS HE DOES NOT HAVE THIS ARRANGED AT HOME. SHE REPORTS PT HAS A CPAP AT HOME BUT STATES IT IS ABOUT 20 YEARS OLD AND HE DOES NOT USE IT. CM WILL CONTINUE TO FOLLOW TO ASSIST SLOANE.
--- NOTE | 2019-06-16 14:00 | EKG ---
[facility] [place] [address] ELECTROCARDIOGRAM REPORT Name: ANDRADE GARCÍA Room #: 248-P ADM IN M.R.#: [id number] Admission: 06/13/19 Attend Phys: Bala Medellin MD Discharge: Date of : 47 Report #: [id number] THIS REPORT FOR: cc: Bala Medellin MD, Neal A. MD Couchonnal, Luis F. MD ~ THIS REPORT FOR: //name// [facility] Test Date: 2019-06-16 Test Time: 09:04:24 Pat Name: ANDRADE GARCÍA Department: Room: 248 P Gender: M Can Bander Operator: KARLA : 1945 Requested By: Bharath Alexandre Order Number: [id number] MD: Jonathan Mane Measurements Intervals [place] Rate: 105 P: -57 MS: 119 QRS: 2 QRSD: 120 T: 189 QT: 347 QTc: 459 Interpretive Statements Sinus or ectopic atrial tachycardia vs atrial flutter Nonspecific intraventricular conduction delay Probable anterior infarct, age indeterminate Repol abnrm, severe global ischemia (LM/MVD) Compared to ECG 06/14/2019 07:31:39 Electronically Signed On 06-16-2019 13:58:57 CDT by Jonathan Mane [email or web address] <ELECTRONICALLY SIGNED> By: Jonathan Mane MD 06/16/19 1358 3 0904 Jonathan Mane MD /EPI
--- NOTE | 2019-06-16 15:00 | NUR ---
ASSISTED UP TO THE CHAIR AND THEN TO THE COMMODE, HAD MODERATE SIZE FOMED STOOL. O2 TITRATED TO KEEP O2 SAT IN THE LOWER TO MID 90'S. SPOKE WITH PATIENT WANTS HIS RAZOR, UPDATED TO STATUS. REMAINS IN THE CHAIR. WILL CONTINUE TO MONITOR. WILL CONTINUE TO MONITOR.
--- NOTE | 2019-06-16 18:00 | NUR ---
PATIENT PROGRESSING SLOWLY O2 AT 4L/HF NC. MONITOR ST, NO APPITITE TODAY, TAKING FLUIDS. VOIDING SMALL AMTS OF CLEAR YELLOW URINE. WILL CONTINUE TO MONITOR.
[2019-06-17] VITALS (27 sets, daily range): BP systolic 85–115; BP diastolic 30–72
--- NOTE | 2019-06-17 04:32 | NUR ---
AOX4. DENIES CHEST PAIN. SOA WITH EXERTION. ON 4L HFC, ON BIPAP 40% DURING THE NIGHT. PT TOLERATED BIPAP FOR APPROXIMATELT 4 HRS. UP TO THE BSC X2 WITH MINIMAL ASSISTANCE, NO BM. VSS. AFEBRILE. NO COMPLAINS CURRENTLY. WILL CONTINUE TO MONITOR PT.
[2019-06-17 06:20] LABS: ALBUMIN 3.4 g/dL (3.4-5.0); CALCIUM 8.4 mg/dL (8.5-10.1); PHOSPHORUS 6.8 mg/dL (2.5-4.9)
[2019-06-17 06:35] LABS: CREATININE 7.7 mg/dL (0.7-1.3)
[2019-06-17 06:37] LABS: POTASSIUM 5.4 mmol/L (3.5-5.1)
--- NOTE | 2019-06-17 08:00 | NUR ---
ASSUMED CARE OF PATIENT AT 0700 THIS AM. BREAKFAST HELD FOR INSERTION OF DIALYSIS CATHATER.
[2019-06-17 08:55] LABS: APTT 38.4 Seconds (24.5-32.8); INR 1.5; PROTIME 15.2 Seconds (9.3-11.4)
--- NOTE | 2019-06-17 10:04 | NUR ---
DIALYSIS CATH PLACED AT BEDSIDE, STERILE TECHNIQUE BY DR Kal VILLASENOR, PATIENT TOLERATED PROCEDURE WITHOUT INCIDENT. PCXR DONE AND LINE PACKED PER IR PROTOCOL VIA IR TEAM.
--- NOTE | 2019-06-17 15:47 | NUR ---
SW reviewed chart. Pt had temporary dialysis catheter placed earlier today. 5N is following pt for possible admission to inpt acute rehab when medically stable. SW is following to assist as needed with discharge planning.
--- NOTE | 2019-06-17 16:54 | NUR ---
PATIENT UP IN THE CHAIR TO DAY AND C/O DYSPNEA WITH ACTIVITY OR EXERTION. O2 INCREASE FOR COMFORT. BREATHE SOUNDS REMAINS TIGHT AND WHEEZEY, ENCOURAGED TO TAKE BREATHING TREATMENTS TO HELP WITH HIS OXYGENATION. MEAN ARTERIAL PRESSURE DROPING INTO THE LOWER 60'S. WILL CONTINUE TO MONITOR.
--- NOTE | 2019-06-17 19:39 | NUR ---
PATIENT IS RESTING QUIETLY. MOVING SLOWLY TOWARDS OUTCOME GOALS.
--- NOTE | 2019-06-17 21:00 | NUR ---
AOX4. ON 5L HIGHFLOW. C/O DIFFICULTIES BREATHING. PLACED ON BIPAP AND BREATHING TREATMENT GIVEN. TALKED TO DR. PETE, BECAUSE PT STATED HE IS EMOTIONALLY PAINED. PT STATED HE WANTED A PSYCH CONSULT WHILE IN THE HOSPITAL BECAUSE HE IS HAVING STRANGE DREAMS AND FEELS EMOTIONAL. DR. PETE ORDERED ATIVAN WHICH WAS GIVEN X1. PT STATED HE WILL TRY TO KEEP BIPAP ON DURING THE NIGHT. EDUCATED ABOUT THE NEED OF USING BIPAP AT HS. TALKED TO THE AT APPROXIMATELY 2200, UPDATED ABOUT PATIENT'S STATUS. WILL CONTINUE TO MONITOR.
[2019-06-18] VITALS (13 sets, daily range): BP systolic 90–111; BP diastolic 52–66
[2019-06-18 05:00] LABS: BE(vivo) -13.4 mmol/L (-2 to +3); HCO3 13.3 mmol/L (22.0-26.0); PCO2 33.6 mmHg (35.0-45.0); PO2 131.6 mmHg (80.0-100.0); pH 7.215 (7.360-7.450); sO2 98.1 % (92.0-98.0)
[2019-06-18 05:04] LABS: ALBUMIN 3.3 g/dL (3.4-5.0); CALCIUM 8.8 mg/dL (8.5-10.1)
--- NOTE | 2019-06-18 05:30 | NUR ---
PT SLIGHT CONFUSED THIS AM. STILL ABLE TO ANSWER ORIENTATION QUESTIONS. VSS. DENIES PAIN. PT STATED AT 444 THAT HE WAS STARTING TO LOSE HIS BREATHING. PLACED ON THE BIPAP AT THIS TIME AND ABG DRAWN. RESULTS WILL BE COMMUNICATED TO DR. PETE. PT HAS TAKED OFF BIPAP 3 TIMES DURING THE NIGHT. EDUCATED SEVERAL TIMES ABOUT THE NEED FOR CONTINUOUS WEARING THE BIPAP WHILE SLEEPING. URINE OUTPUT IS 50CC DURING THE NIGHT. PT CURRENTLY NOT PROGRESSING TOWARDS GOALS. WILL CONTINUE TO MONITPR.
[2019-06-18 05:52] LABS: CREATININE 8.9 mg/dL (0.7-1.3); POTASSIUM 6.3 mmol/L (3.5-5.1)
--- NOTE | 2019-06-18 09:10 | NUR ---
pt called. very angry from the beginning of call. states no one has updated her since yesterday. this rn apoligized and asked for security code. pt must have said it but phone so I asked again. This further enraged pt . I then apologized for our bad senior receptionist and told her I would call her on the land line. Once a good connection was established pt started to grill me with question after question. I disclosed lab and physician noted to her but she still wanted more information. I told her I would have the phsicians call her but she was not safified with that. She stated the nurse should have all of the informantion she needed. When she started asking me to compare his condition from yesterday until today I told her I would have Dr. Medellin call her. Dr. Ferrari was on the pod with me when converstation took place and he offered to call her as well. Dr. Medellin called and asked to update . Also Dr. Hahn here and he stated he would call her later this afternoon.
--- NOTE | 2019-06-18 11:00 | NUR ---
CALLED PT TO GIVE UPDATE. EMOTIONAL SUPPORT GIVEN. PT STILL SOUNDS VERY ANGRY AND UPSET. SHE DID ADMIT THAT DR RIBEIRO UPDATED HER BUT DR. HERNÁNDEZ HAS NOT YET CALLED BACK. ASKED THIS RN TO CALL HER EVERY 30 MINUTES DURING HD. I STATED THAT I COULD NOT DO THAT BUT I WOULD TRY TO CALL HER EVERY HOUR AND IF THERE WAS A CHANGE. SHE SEEMED AGREEABLE TO THIS.
--- NOTE | 2019-06-18 13:19 | NUR ---
USED THIS RN PHONE TO MAKE A FACE TIME CALL BETWEEN PT AND HIS . THIS RN CALLED PT AFTER THAT CALL TO LET HER KNOW THAT THEY WERE STARTING HD.
--- NOTE | 2019-06-18 13:20 | NUR ---
PT OFF BIPAP PAST 45 MINUTES AND TOLORATING WELL. ICE CHIPS GIVEN. SPOKE WITH PHAMACIST ABOUT STRATING AMIODARONE GTT. PT DID GET 400 MG THIS AM PO. PHARMACIST RECCOMMENDS WE NOT START GTT YET UNLESS HR GOES UP. RIGHT NOW SBP RUNNING IN THE LOW 100S.
--- NOTE | 2019-06-18 13:30 | NUR ---
HD STARTED, FACE TIME WITH TO LET HER KNOW UPDATE. NO QUESTIONS VERBALIZED. SHE STATES SHE STILL HAS NOT HEARD FROM DR. HERNÁNDEZ OR ROZ. TREATENS TO CALL ADMINISTRATION AGAIN OR TAKE PT ELSWHERE. EMOTIONAL SUPPORT GIVEN.
--- NOTE | 2019-06-18 13:40 | NUR ---
HD IN PROGRESS, PT BECAME MORE TACYCARDIC. STARTED AMIODARONE GTT. SEE MAR FOR TIME. PT TOLORAING NASAL CANNULA. OFF BIPAP.
--- NOTE | 2019-06-18 14:30 | NUR ---
ON-GOING ASSESSMENT: CM REVIEWED CHART. PT WAS STARTED ON DIALYSIS. PT ALSO REQUIRING BIPAP. NAI SPOKE WITH Joe WATSON WHO STATES THEY CAN ACCEPT PATIENT ONCE MEDICALLY STABLE. Joe WATSON REPORTS THEY CAN ACCEPT PATIENT ON BIPAP AT BEDTIME BUT WOULD NEED TO SEEK APPROVAL IF PATIENT IS REQUIRING THE BIPAP MORE OFTEN. NAI SPOKE WITH PATIENTS TO FURTHER DISCUSS DISCHARGE PLAN AND SHE IS AGREEABLE FOR PATIENT TO GO TO 5N. POSSIBLE DISCHARGE TO 5N SOMETIME EARLY NEXT WEEK PENDING PTS PROGRESSION. CM WILL CONTINUE TO FOLLOW TO ASSIST NEEDED.
--- NOTE | 2019-06-18 15:00 | NUR ---
CALLED AND UPDATED PT . NO QUESTIONS VERBALIZED.
--- NOTE | 2019-06-18 16:20 | NUR ---
PATIENT IS A CANDIDATE FOR ACUTE REHAB/5N WHEN MEDICALLY READY. ANTICIPATE ADMISSION TO 5 SOMETIME THE WEEK OF 06/21/19. THANK YOU FOR THIS REFERRAL.
--- NOTE | 2019-06-18 16:51 | NUR ---
UPDATED PT THAT HD WAS OVER. NO QUESTIONS. PT CALLED HIS ON HIS PHONE. DR. HERNÁNDEZ REPORTS HE DID SPEAK TO PT .
--- NOTE | 2019-06-18 18:40 | NUR ---
PT PROGRESSING TOWARDS GOALS. OFF BIPAP AND TOLORATING WELL. TOLORATED HD TODAY. 1 L OFF.
[2019-06-19] VITALS (38 sets, daily range): BP systolic 76–122; BP diastolic 47–73
[2019-06-19 03:40] LABS: ABSOLUTE NEUTROPHILS 8.1 thou/uL (1.4-8.2); BASOPHILS 0.1 % (0.0-2.0); HEMATOCRIT 22.3 % (42.0-52.0); HEMOGLOBIN 7.1 gm/dL (14.0-18.0); LYMPHOCYTES 2.5 % (24.0-44.0); MCV 81.3 fL (80.0-100.0); MONOCYTES 5.8 % (1.0-8.0); PLATELET COUNT 194 thou/uL (150-400); POLYS 91.6 % (36.0-66.0); RBC 2.74 mil/uL (4.50-6.00); RDW 20.3 % (10.5-14.5); WBC 8.8 thou/uL (4.0-11.0)
[2019-06-19 04:22] LABS: ALBUMIN 3.2 g/dL (3.4-5.0); PHOSPHORUS 9.5 mg/dL (2.5-4.9); POTASSIUM 5.8 mmol/L (3.5-5.1); TOTAL BILIRUBIN 1.8 mg/dL (<0.1-1.0)
[2019-06-19 04:22] LABS: BE(vivo) -7.5 mmol/L (-2 to +3); HCO3 19.4 mmol/L (22.0-26.0); PCO2 45.3 mmHg (35.0-45.0); PO2 94.1 mmHg (80.0-100.0)
[2019-06-19 04:23] LABS: pH 7.249 (7.360-7.450)
--- NOTE | 2019-06-19 07:43 | NUR ---
Assumed patient care at 1900. Patient is awake and oriented. Patient noted to be on 6L HFNC. Patient has no complaints of chest pain. Patient's VS remained stable and no acute events occured during this shift. Patient's spouse updated on care plan and all questions were answered.
--- NOTE | 2019-06-19 10:40 | NUR ---
ASSUMED CARE AT 0700, ASSESSMENT AND VITAL SIGNS COMPLETED PER ICU PROTOCOL. DIALYSIS INITIATED THIS MORNING. SPEECH THERAPIST SAW PT, PLACED RECOMMENDATIONS. CALLED RN AT 10:15, SECURITY CODE VERIFIED, RN PROVIDED UPDATE AND DISCUSSED PT'S CARE.
[2019-06-20] VITALS (63 sets, daily range): BP systolic 11–186; BP diastolic 27–70
[2019-06-20 02:47] LABS: HEMATOCRIT 23.4 % (42.0-52.0); HEMOGLOBIN 7.5 gm/dL (14.0-18.0); MCH 26.2 pg (26.0-34.0); MCV 82.1 fL (80.0-100.0); RBC 2.85 mil/uL (4.50-6.00); RDW 20.8 % (10.5-14.5); WBC 10.3 thou/uL (4.0-11.0)
[2019-06-20 03:07] LABS: ALBUMIN 3.3 g/dL (3.4-5.0); CALCIUM 7.7 mg/dL (8.5-10.1); CREATININE 6.5 mg/dL (0.7-1.3); PHOSPHORUS 11.4 mg/dL (2.5-4.9); POTASSIUM 5.9 mmol/L (3.5-5.1)
--- NOTE | 2019-06-20 07:35 | NUR ---
Assumed patient care at 1900. Patient AAOx3 and on 6L HFNC. Assessement completed and patient swallowed med well crushed with yogurt. At 2200, patient complained of all over pain and sating he was having trouble breathing. Morphine was given. Patient began stating that his chest was hurting and he was diaphoretic. Sublingual nitroglycerin was given and Dr. Mane was notified. Received orders for EKG and Troponin. Troponin came back at 8.34 and this RN received further orders from Dr. Mane to place patient NPO and give patient an aspirin. Patient began coughing and vomited after the aspirin was given and his respiratory status began to decline even further. BiPaP was increased to 100% and CXR was ordered to see if patient aspirated. No aspiration was noted. Patient given ativan to help with labored breathing and went to sleep and no further acute events occurred. Patient's spouse updated throughout the night on events and on patient possibly going to director of cardiac cath lab today.
[2019-06-20 09:52] LABS: BE(vivo) -5.7 mmol/L (-2 to +3); HCO3 24.4 mmol/L (22.0-26.0); PO2 114.9 mmHg (80.0-100.0); sO2 96.3 % (92.0-98.0)
[2019-06-20 09:53] LABS: PCO2 80.8 mmHg (35.0-45.0); pH 7.097 (7.360-7.450)
--- NOTE | 2019-06-20 10:21 | NUR ---
ON BIPAP AND VERY LETHARGIC, OPENS EYES WITH STIMULATION BUT DOESN'T STAY AWAKE OR FOLLOW COMMANDS. STARTED ON HEMODIALYSIS AND IS HYPOTENSIVE, DR. OSBORN AWARE AND ORDERED ALBUMIN WITH DIALYSIS. OTHER VITALS STABLE. DR. CARRERA, DR. PETE AND DR. OSBORN ROUNDED AT THE SAME TIME, ABG OBTAINED AND MDs REVIEWED IT. DR. OSBORN SPOKE TO PATIENT'S OVER THE PHONE. DR. CARRERA AND DR. PETE STATED THEY WILL CALL TO GIVE ANY FURTHER UPDATE.
--- NOTE | 2019-06-20 11:30 | EKG ---
[facility] [place] [address] ELECTROCARDIOGRAM REPORT Name: ANDRADE GARCÍA Room #: 248-P ADM IN M.R.#: [id number] Admission: 06/13/19 Attend Phys: Bala Medellin MD Discharge: Date of : 47 Report #: [id number] THIS REPORT FOR: cc: Bala Medellin MD, Neal A. MD Couchonnal, Luis F. MD ~ THIS REPORT FOR: //name// [facility] Test Date: 2019-06-19 Test Time: 22:44:42 Pat Name: ANDRADE GARCÍA Department: Room: 248 P Gender: M Doctor'S Assistant: MARTI : 1945 Requested By: Jonathan Mane Order Number: [id number] MD: Jonathan Mane Measurements Intervals [place] Rate: 96 P: PA: QRS: 4 QRSD: 120 T: 181 QT: 387 QTc: 490 Interpretive Statements Accelerated junctional rhythm Incomplete left bundle branch block Repol abnrm diffuse unchanged Compared to ECG 06/16/2019 09:04:24 Electronically Signed On 06-20-2019 11:29:18 CDT by Jonathan Mane [email or web address] <ELECTRONICALLY SIGNED> By: Jonathan Mane MD 06/20/19 1129 Jonathan Mane MD /EPI
--- NOTE | 2019-06-20 11:39 | EKG ---
[facility] [place] [address] ELECTROCARDIOGRAM REPORT Name: ANDRADE GARCÍA Room #: 248-P ADM IN M.R.#: [id number] Admission: 06/13/19 Attend Phys: Bala Medellin MD Discharge: Date of : 47 Report #: [id number] THIS REPORT FOR: cc: Bala Medellin MD, Neal A. MD Couchonnal, Luis F. MD ~ THIS REPORT FOR: //name// [facility] Test Date: 2019-06-20 Test Time: 09:51:18 Pat Name: ANDRADE GARCÍA Department: Room: 248 P Gender: M Master Hearth Technician: CECILIO : 1945 Requested By: Jonathan Mane Order Number: [id number] MD: Jonathan Mane Measurements Intervals [place] Rate: 83 P: [place]: QRS: 4 QRSD: 124 T: 188 QT: 408 QTc: 480 Interpretive Statements Sinus rhythm. Left bundle branch block Compared to ECG 06/16/2019 09:04:24 Electronically Signed On 06-20-2019 11:38:16 CDT by Jonathan Mane [email or web address] <ELECTRONICALLY SIGNED> By: Jonathan Mane MD 06/20/19 1138 [id number] Jonathan Mane MD /EPI
[2019-06-20 15:27] LABS: BE(vivo) -3.1 mmol/L (-2 to +3); HCO3 20.1 mmol/L (22.0-26.0); PO2 360.5 mmHg (80.0-100.0); pH 7.473 (7.360-7.450); sO2 99.8 % (92.0-98.0)
--- NOTE | 2019-06-20 16:09 | NUR ---
WHILE PATIENT ON DIALYSIS, BECAME HYPOTENSIVE AND CONTINUED TO BE ON BIPAP AT FIO2 100%. ABG OBTAINED, AT THIS TIME DR. PETE WAS ON THE UNIT AND WAS INFORMED OF CRITICAL RESULTS. DR. PETE CALLED PATIENT'S AND OBTAINED CONSENTS FOR INTUBATION, CENTRAL AND ARTERIAL LINE, AND FOR HEART CATH PER DR. COURTNEY. DIALYSIS WAS TERMINATED PER DR. OSBORN AND PATIENT WAS INTUBATED AT 1148, STARTED ON VERSED AND LEVO. PATIENT'S CALLED BACK REGARDING COMING TO SEE PATIENT OKEYED BY MDs AND STUDENT UNION CONSULTANT JANA. AT THIS TIME TELEPHONE CONSENT FOR BLOOD TRANSFUSION WAS OBTAINED. PATIENT'S CAME AND VISITED FOR AN HOUR. BLOOD TRANSFUSION GOING ON AT THIS TIME. PER DR. PETE, DR. COURTNEY PLANNING ON TAKING PATIENT TO TRUCKING SUPERVISOR TOMORROW UNLESS IS AN EMERGENCY.
[2019-06-20 19:28] LABS: BE(vivo) -5.8 mmol/L (-2 to +3); PCO2 34.4 mmHg (35.0-45.0); PO2 78.9 mmHg (80.0-100.0); pH 7.361 (7.360-7.450); sO2 95.4 % (92.0-98.0)
[2019-06-20 22:07] LABS: HEP B SURFACE Ab(ANTI-HBS Non Reactive (()); HEPATITIS B SURFACE AG Negative (Negative)
[2019-06-21] VITALS (83 sets, daily range): BP systolic 91–137; BP diastolic 51–88
[2019-06-21 00:40] LABS: HEMATOCRIT 21.7 % (42.0-52.0); HEMOGLOBIN 7.1 gm/dL (14.0-18.0)
[2019-06-21 02:39] LABS: HEMATOCRIT 21.7 % (42.0-52.0); MCH 26.1 pg (26.0-34.0); MCHC 32.1 g/dL (28.0-37.0); MCV 81.3 fL (80.0-100.0); RBC 2.67 mil/uL (4.50-6.00); RDW 19.5 % (10.5-14.5); WBC 11.5 thou/uL (4.0-11.0)
[2019-06-21 02:54] LABS: CALCIUM 6.7 mg/dL (8.5-10.1); CREATININE 6.1 mg/dL (0.7-1.3); PHOSPHORUS 7.6 mg/dL (2.5-4.9); POTASSIUM 5.3 mmol/L (3.5-5.1)
--- NOTE | 2019-06-21 07:46 | NUR ---
Assumed patient care at 1900. Patient intubated and is sedated with Versed. Patient did not open eyes during sedation vacation or follow any commands. He would only squench his eyes when addressed. Patient also has amiodarone and Levophed infusing. VS remained stable and no acute events occurred during this shift. Spouse updated on care plan and all questions were answered. Spouse stated that she regrets going against his wishes and him getting intubated when he told her he was ready to . This RN gave her some comforting words.
[2019-06-21 08:23] LABS: HEMATOCRIT 25.1 % (42.0-52.0); HEMOGLOBIN 8.3 gm/dL (14.0-18.0)
--- NOTE | 2019-06-21 08:51 | NUR ---
Pt BEING SEEN BY P.T. FOR PROGRESSIVE MOBILIZATION HOWEVER HAS HAD A DECLINE IN PULMONARY FUNCTION AND IS BACK ON VENT. TO HAVE CATH TODAY. WILL PLACE ON HOLD DUE TO CHANGE IN STATUS AND AWAIT NEW ORDERS TO RESUME WHEN APPROPRIATE
[2019-06-21 09:02] LABS: APTT 39.6 Seconds (24.5-32.8); D-DIMER 1.52 ug/mLFEU (0.19-0.50); FIBRINOGEN 231.6 mg/dL (210-360); INR 1.8; PROTIME 18.7 Seconds (9.3-11.4)
--- NOTE | 2019-06-21 09:45 | NUR ---
cm spoke with bedside nurse, pt out of room for cath. no concerns passed on from bedside nurse. will cont following as needed for dc needs.
--- NOTE | 2019-06-21 11:09 | NUR ---
PATIENT OFF UNIT FOR ANNUAL CAMPAIGN MANAGER TODAY, DECLINE IN STATUS OVERNIGHT, ON VENT. WILL AWAIT NEW ORDERS.
--- NOTE | 2019-06-21 12:33 | NUR ---
PT TO VP CONSTRUCTION AT ABOUT 0830, BACK TO FLOOR AT 1050. PER VP CONSTRUCTION RN REPORT OLD STENT OPENED UP PDA-OM. RIGHT FEMORAL SHEATH STILL IN PLACE PER CARDIOLOGY REQUEST. CONNECTED TO PRESSURE BAG AND MONITOR. SWAN AT 85 CM. PT VOIDED ON CHUX WHILE IN VP CONSTRUCTION. SO DOMÍNGUEZ WAS PLACED AT BEDSIDE, 400ML OUT INSTANTLY. DIALYSIS STARTED TODAY AT 1115.
[2019-06-22] VITALS (38 sets, daily range): BP systolic 84–128; BP diastolic 53–85
--- NOTE | 2019-06-22 06:00 | NUR ---
REMAINS INTUBATED. LEVOPHED GTT AT 4 MG FOR SEDATION. PT REMAINS RESTRAINED RAISES ARMS AND PULLS AT RESTRAINTS OCC ESEQUIEL WHEN BEING TURNED. LUNGS COARSE FIO2 50 % 350 CC CLEAR GERSON URINE THIS SHIFT. RIGHT FEMEROL SWAN PULSES INTACT. FOLLOWS NO COMMANDS. WILL CONT TO MONITOR.
[2019-06-22 06:07] LABS: HEMATOCRIT 22.6 % (42.0-52.0); HEMOGLOBIN 7.8 gm/dL (14.0-18.0); MCH 27.9 pg (26.0-34.0); MCHC 34.4 g/dL (28.0-37.0); MCV 81.1 fL (80.0-100.0); RBC 2.78 mil/uL (4.50-6.00); RDW 19.3 % (10.5-14.5); WBC 8.8 thou/uL (4.0-11.0)
[2019-06-22 06:15] LABS: ALBUMIN 2.7 g/dL (3.4-5.0); CALCIUM 7.2 mg/dL (8.5-10.1); PHOSPHORUS 7.4 mg/dL (2.5-4.9); POTASSIUM 4.6 mmol/L (3.5-5.1)
[2019-06-22 06:16] LABS: CREATININE 4.5 mg/dL (0.7-1.3)
--- NOTE | 2019-06-22 09:27 | NUR ---
ASSUMED CARE AT 0700, ASSESSMENT AND VITAL SIGNS COMPLETED PER ICU PROTOCOL. OMID VALDES, WITH CARDIOLOGY ROUNDED THIS AM, NEW ORDERS RECEIVED. DR. HERNÁNDEZ ROUNDED THIS AM. 09: CALLED RN, PROVIDED SECURITY CODE. WAS UNDER THE IMPRESSION FROM ADVERTISING EXECUTIVE THAT HIS OXYGEN LEVEL WAS 40% AND WAS HOPEFUL OF A CPAP TRIAL TODAY. RN CONFIRMED THAT HE WAS ON 50% OXYGEN OVERNIGHT, AND HAS BEEN ON 50% SINCE 06/19. RN CONFIRMED WITH RT THAT HE DOES NOT MEET CRITERIA FOR CPAP TRIAL. BECAME VERY UPSET THAT SHE IS GETTING COUNTER INFORMATION FROM DIFFERENT SHIFTS. ASKED ABOUT DIC REPORT, RN WAS NAVIGATING TO RETRIEVE THE VALUES, BECAME VERY UPSET, HUNG UP ON RN.
--- NOTE | 2019-06-22 10:31 | HC ---
[facility] [place] [address] CONSULTATION Name: ANDRADE GARCÍA Room #: 248-P ADM IN M.R.#: [id number] Admission: 06/13/19 Attend Phys: Bala Medellin MD Discharge: Date of : 47 Report #: [id number] THIS REPORT FOR: cc: Bala Medellin MD, Neal A. MD Al-Absi,Viridiana Gonzalez MD ~ CC: Servando Medellin DATE OF SERVICE: 06/13/2019 REASON FOR CONSULTATION: Elevated creatinine. REASON FOR PRESENTATION: Chest pain. HISTORY OF PRESENT ILLNESS: A 73-year-old with extensive past medical history including coronary artery disease, status post CABG and chronic kidney disease. Most recent creatinine in February of this year was around 2.8. He presented with typical anginal symptoms. The patient reports to me that he has been having some issues with dizziness, low blood pressure and bradycardia at home. He talked with his mop man and he was advised to adjust the dose of the metoprolol accordingly. This has resulted in some improvement of his symptoms; however, he started taking back the medications and after he started taking back the medications, his symptoms have worsened. He is known to have pulmonary hypertension, cardiomyopathy with ejection fractions of around 25% to 30%, AFib. He is maintained on long-term anticoagulation. From the renal perspective, the patient is known to have chronic kidney disease with renal artery stenosis. His creatinine had been in the 2 to 3 range. When the patient presented to the Emergency Room yesterday, he was found to have a creatinine value of 4.0. He was also found to be in atrial flutter with RVR. He received Cardizem and nitroglycerin. I was consulted to manage his chronic kidney disease. There have not been any changes in his medications recently. No new antibiotics. He is maintained on chronic Torsemide. PAST MEDICAL HISTORY: 1. Status post cardiac arrest in the past, for which we saw him after that period back in 2018. 2. Hypertension. 3. Hyperlipidemia. 4. Anemia. 5. Cardiomyopathy with ejection fractions of around 25%. 6. Atrial fibrillation, flutter. 7. Status post coronary artery bypass graft. 8. Peripheral vascular disease. 9. Renal artery stenosis. 10. Chronic kidney disease with a baseline creatinine of around 2.5 to [address] [address] CONSULTATION Name: ANDRADE GARCÍA [place] Room #: 248-P [facility] IN ..#: [id number] Admission: 06/13/19 Attend Phys: Bala Medellin MD Discharge: Date of : 47 Report #: [id number] PAST SURGICAL HISTORY: Bypass surgery. FAMILY HISTORY: Mother due to old age. His father had heart disease. SOCIAL HISTORY: Lives at home with his . He is an ex-smoker. No drug or alcohol abuse. REVIEW OF SYSTEMS: GENERAL: No fever or chills. CARDIOVASCULAR: Significant for chest pain and palpitation. PULMONARY: Significant for shortness of breath. GASTROINTESTINAL: No nausea or vomiting. GENITOURINARY: No frequency, no urgency. MUSCULOSKELETAL: Occasional myalgias and back pain. SKIN: No rash or ulcerations. NEUROLOGICAL: Significant for malaise, headache and fatigue. PHYSICAL EXAMINATION: GENERAL: He is alert, oriented. VITAL SIGNS: Blood pressure is 115/47, temperature is 36.5, pulse rate is 79, respiratory rate is 18. HEAD AND NECK: No jugular venous distention, no bruit, no thyromegaly. CHEST: Clear to auscultation bilaterally. CARDIOVASCULAR: Regular with no rub detected. ABDOMEN: Soft, nontender with no hepatosplenomegaly. EXTREMITIES: Lower extremities, trace edema. LABORATORY VALUES: From today revealed sodium of 134, BUN of 67, creatinine of 4.0. ASSESSMENT: 1. Acute kidney injury. 2. Chronic kidney disease with a baseline creatinine of around 2.5. 3. Status post coronary artery bypass graft. 4. Atrial flutter. 5. Anginal symptoms. PLAN: 1. The patient's worsening of renal function seems to be related to hypoperfusion. I agree with the fluid resuscitation at this point. 2. Watch volume status. 3. Hold diuretics. 4. Monitor urine, monitor renal function. 5. Avoid nephrotoxins. 6. Currently being evaluated by the cardiac team regarding his anginal [address] [address] CONSULTATION Name: ANDRADE GARCÍA [place] Room #: 248-P [facility] IN M.R.#: [id number] Admission: 06/13/19 Attend Phys: Bala Medellin MD Discharge: Date of : 47 Report #: [id number] symptoms. Issue of using contrast in the near future if needed was discussed with the patient. 7. We will continue to follow. <ELECTRONICALLY SIGNED> By: Viridiana Beckett MD 06/22/19 1031 0839 Viridiana Beckett MD /nt
--- NOTE | 2019-06-22 11:00 | NUR ---
Nutrition: NPO x 2 days on vent. REC initiate Nepro enteral feeds at 40 mL/hr.
[2019-06-22 14:48] LABS: HEMATOCRIT 22.6 % (42.0-52.0); HEMOGLOBIN 7.6 gm/dL (14.0-18.0)
--- NOTE | 2019-06-22 15:18 | NUR ---
SPOKE TO PRIMARY RN. DR JENKINS SUGGESTED LINE BE REPLACED IF CONTINUE TO BLEED. PICC NOT ACCEPTABLE PT IS DIALYSIS PT. UNABLE TO USE RIJ DUE TO DIALYSIS CATH RIGHT SIDE AND IV TEAM UNABLE TO DO SC HE SUGGESTED, ONLY MD CAN DO SC. IF NEEDS REPLACED PT WILL NEED IR
[2019-06-23] VITALS (28 sets, daily range): BP systolic 89–136; BP diastolic 54–86
[2019-06-23 05:45] LABS: HEMATOCRIT 25.2 % (42.0-52.0); HEMOGLOBIN 8.4 gm/dL (14.0-18.0); MCH 27.5 pg (26.0-34.0); MCHC 33.2 g/dL (28.0-37.0); MCV 82.8 fL (80.0-100.0); RBC 3.05 mil/uL (4.50-6.00); RDW 19.4 % (10.5-14.5); WBC 6.8 thou/uL (4.0-11.0)
[2019-06-23 06:04] LABS: CALCIUM 7.7 mg/dL (8.5-10.1); CREATININE 3.6 mg/dL (0.7-1.3); POTASSIUM 4.4 mmol/L (3.5-5.1)
--- NOTE | 2019-06-23 06:26 | NUR ---
SEDATION VACATION NOTE: PATIENT SEDATED ON VERSED AT 6MG. VERSED TURNED OFF FOR APPROXIMATELY 15MINS. PT DOESN'T FOLLOW COMMANDS. MOVES ARM AND LEGS IN RESPONSE TO PAINFUL STIMULI. FROWNS WHEN NAME IS CALLED. DOESN'T OPEN EYES WHEN ASKED TO OR SQUEEZE HAND. DURING SEDATION VACATION AT 0530 AM, PT HR IN THE 112, RESP 24, AND BP IN THE LOW 100S. END OF SHIFT NOTE: PT STILL SEDATED AT 6MG OF VERSED. MOVES EXTREMITIES IN RESPONSE TO PAINFUL STIMULI. TOLERATING VENT SETTINGS. OFF LEVOPHED AT 2200, MAP >65. R FEMORAL VENOUS/ARTERIAL SHEATH IN PLACE. NO NOTED BLEEDING, OR HEMATOMA AROUND SITE. OG IN PLACE, OUTPUT NOTED. UNABLE TO COLLECT LAB FOR OCCULT STOOL D/T NO BM DURING THE SHIFT. LIJ CENTRAL LINE DRESSING CHANGED TWICE DURING THE SHIFT. NOTED BLEEDING/OOZING AROUND SUTURE SITE. PT SLOWLY PROGRESSING TOWARDS GOALS. WILL CONTINUE TO MONITOR.
--- NOTE | 2019-06-23 07:58 | EKG ---
[facility] [place] [address] ELECTROCARDIOGRAM REPORT Name: ANDRADE GARCÍA Room #: 248-P ADM IN M.R.#: [id number] Admission: 06/13/19 Attend Phys: Bala Medellin MD Discharge: Date of : 47 Report #: [id number] THIS REPORT FOR: cc: Bala Medellin MD, Neal A. MD Lundgren, Craig H. MD [facility] ~ THIS REPORT FOR: //name// [facility] Test Date: 2019-06-22 Test Time: 13:31:54 Pat Name: ANDRADE GARCÍA Department: Room: 248 P Gender: [place]: Yolanda KHAN : 1945 Requested By: Bharath Alexandre Order Number: [id number] MD: Preet Jarrett Measurements Intervals [place] Rate: 112 P: -88 GA: 108 QRS: 31 QRSD: 112 T: 207 QT: 369 QTc: 504 Interpretive Statements Sinus tachycardia Borderline intraventricular conduction delay Repol abnrm suggests ischemia, anterolateral Prolonged QT interval Compared to ECG 06/20/2019 09:51:18 ST and T wave abnormalities less prominent Electronically Signed On 06-23-2019 7:57:13 CDT by Preet Jarrett [email or web address] <ELECTRONICALLY SIGNED> By: Preet Jarrett MD, FAC 06/23/19 0757 1331 1331 Preet Jarrett MD, [facility] /EPI
--- NOTE | 2019-06-23 14:54 | NUR ---
on-going assessment: PT REMAINS INTUBATED AND SEDATED. PT RECEIVED HEMODIALYSIS TODAY. PT STILL REQUIRING HIGH FI02. PER PULM WILL ATTEMPT WEANING TRIALS WHEN PT IS MORE STABLE. PT CONTINUES ON AMIO GTT WELL IV ANBX. 5N IS CONTINUING TO FOLLOW PATIENT. CM WILL CONTINUE TO FOLLOW TO ASSIST NEEDED.
[2019-06-23 15:35] LABS: BE(vivo) 2.6 mmol/L (-2 to +3); HCO3 25.4 mmol/L (22.0-26.0); PCO2 32.3 mmHg (35.0-45.0); pH 7.514 (7.360-7.450); sO2 99.5 % (92.0-98.0)
--- NOTE | 2019-06-23 16:56 | NUR ---
ASSESSMENTS AND INTERVENTIONS DOCCUMENTED. PATIENT REMIANS INTUBATED AND ON MODERATE SEDATION. PATIENT HAVING HD TODAY WITH 3L OFF. PATIENT TOLERATED IT WELL. AMIO GTT CONTINUED. NO MAJOR ISSUES THROUGH OUT SHIFT. AND SON UPDATED ABOUT POC AND PATIENT'S CURRENT STATUS. TUBE FEEDINGS STARTED. PATIENT IS PROGRESSING TOWARDS GOALS AT THIS TIME EVIDENCE BY A DECREASED AMMOUNT OF PEEP FROM 10 TO 6 AND PATIENT NOT REQUIRING LEVOPHED GTT.
--- NOTE | 2019-06-23 17:17 | CATHLAB ---
[facility] [place] [address] INVASIVE PROCEDURE REPORT Name: ANDRADE GARCÍA RAY Room #: 248-P ADM IN M.R.#: [id number] Admission: 06/13/19 Attend Phys: Bala Medellin MD Discharge: Date of : 47 Report #: [id number] THIS REPORT FOR: cc: Bala Medellin MD, Neal A. MD Mancuso, Gerald M. MD [facility] ~ APPROVED REPORT Study performed: 06/21/2019 07:35:18 Patient Details Patient Status: In-Patient Room #: The patient is a 73 year-old male Event Personnel Bharath Alexandre Metal Precision Machine Assembler, Fernandez Yin RN, Holly Buitrago RTR Monitor, Lianna Roberts RTR, BERTHA Scrub, Greg, Emely RTR Orthotic Assistant, Nga Tim Monitor Procedures Performed Art Access - R femoral artery* Bari Access - R femoral vein Right and Left Heart Cath Lt Vent/Cors/Grafts 4045062 RLLVCORCAB PTCA Single Vessel CIRC [id number] PCISINGLE Renal Bilateral Peripheral Angiography [id number] CVRENALBIL Indication Chest pain Procedure Narrative The Right Groin^ was infiltrated with 1% Lidocaine subcutaneous anesthesia. A Right Heart Catheterization was performed with a 7.5 Fr. Hagan-Santana catheter and pressure were recorded. Cardiac outputs were obtained by the Thermal Dilution method. A PINNACLE 6FR Sheath #[id number] sheath was inserted into the RFA^. Coronary angiography was performed using coronary diagnostic catheters. The right coronary system was accessed and visualized with a 6FR RCB #[id number] catheter. The left coronary system was accessed and visualized with a JL4 catheter. The left ventricle was accessed and visualized with a PIGTAIL catheter. Left ventriculogram was performed in 30 degree projection. The patient tolerated the procedure well and there were no complications associated with the procedure. There was no hematoma. Fluoro Time: 28.41 minutes [facility] [address] [place] [address] INVASIVE PROCEDURE REPORT Name: GARCÍAANDRADEGORMAN Room #: 248-P [facility] IN [facility]#: [id number] Admission: 06/13/19 Attend Phys: Bala Medellin, Discharge: Date of : 47 Report #: [id number] Dose: DAP 51430.90 cGycm2 4543 mGy Contrast Type and Amount: Visipaque 270 ml Hemodynamics The right atrial mean pressure is 23 mmHg. The right ventricular pressure is 77/13 mmHg. The pulmonary artery pressure is 71/36 mmHg with a mean of 52 mmHg. The mean pulmonary capillary wedge pressure is 38 mmHg. The aortic pressure is 122/70 mmHg with a mean of 92 mmHg. The left ventricular pressure is 121/19 mmHg with a mean of mmHg. The left ventricular end diastolic pressure is 33 mmHg. The cardiac output using thermo method is 4.55 L/min. The cardiac index using thermo method is 2.02 L/min/m2. PCI Technique Lesion Percutaneous coronary intervention was performed on the Unspecified. A LAUNCHER 6FR RCB #[id number] Guide Catheter was used to engage the ostium. A Luge Wire .014 x 182CM #[id number] Interventional Guidewire was used to cross the lesion. BALLOON DILATION A Balloon catheter Sprinter OTW 2.0 x 10 #[id number] was inserted and inflated up to 16.00atm for 22seconds. Additional Inflation: 20.00atm for 19seconds. Additional Inflation: 20.00atm for 22seconds. POST STENT DEPLOYMENT BALLOON DILATION A Balloon catheter TREK OTW 2.75 X 8 #[id number] was inserted and inflated up to 14.00atm for 49seconds. Additional Inflation: 16.00atm for 14seconds. Additional Inflation: 16.00atm for 11seconds. ADDITIONAL INFLATIONS 8 STEFANY FOR 8 SECS, AND 18 ATMS FOR 42 SECS Conclusion #1.Normal left ventricular size with mild global hypokinesis worse in the inferior wall EF 35% range #2 [place] left system 100% occluded at the left main #3 the [place] right coronary artery occluded at the ostium #4 a free VAZ to LAD is intact with mild irregularities this then distally fills a small PDA of the inferior wall collateral branch off of the distal LAD. #5 SVG to PDA is intact ostial disease of 30 to 40% an eccentric distal lesion of 60 to 70% but still filling a relatively small posterior lateral and some competitive filling of a diffusely diseased PDA #6 successful PTCA of a totally occluded distal vein graft to the OM system which was previously stented. I was able to redilate this stent and restored KRISTIAN grade III flow in a relatively small [facility] [address] [place] [address] INVASIVE PROCEDURE REPORT Name: ANDRADE GARCÍA RAY Room #: 248-P [facility] IN M.R.#: [id number] Admission: 06/13/19 Attend Phys: Bala Medellin, Discharge: Date of : 47 Report #: [id number] system. Hemodynamically improved. #7 selective renal angiography revealing a 50% ostial right renal artery mild disease of the left renal artery. #8 Hagan-Santana catheter placement for monitoring in the ICU. Cardiac output by thermodilution was obtained. Right heart catheterization performed in the [place]. Recommendations and plan: Continue aggressive risk factor modification patient will be transferred back to the ICU intubated sedated. Guarded condition. Will need aggressive diuresis per dialysis. Have discussed with nephrology. See above hemodynamics market elevation pulmonary pressures pulmonary capillary wedge pressure <ELECTRONICALLY SIGNED> By: Bahrath Alexandre MD, FACC 06/23/191714 14 14 Bharath Alexandre MD, FACC /INF
--- NOTE | 2019-06-23 19:14 | NUR ---
LT IJ SITE DSG CHG'D AGAIN, CONTINUES TO OOZE. SCANNED WITH US AND JUGULAR APPEARS TO BE OCCLUDED BELOW THE INSERT SITE. NO OTHER SITE VISUALIZED APPROPRIATE FOR A NEW CL. RT IJ IS TAKEN BY AND HD CATH. DR JENKINS TO ORDER AN US ON LT JUGULAR AND WANTED ORDER TO PLACE A CL BY IR ON THE RT 06/24/19 AND LEAVE LT LINE IN UNTIL NEW ONE OBTAINED.
--- NOTE | 2019-06-23 20:54 | NUR ---
SPOKE WITH JORDY GARCÍA AND UPDATED ON PATIENT'S STATUS.
[2019-06-24] VITALS (59 sets, daily range): BP systolic 81–127; BP diastolic 52–82
[2019-06-24 05:44] LABS: BE(vivo) -1.8 mmol/L (-2 to +3); HCO3 22.6 mmol/L (22.0-26.0); PCO2 36.7 mmHg (35.0-45.0); PO2 125.6 mmHg (80.0-100.0); pH 7.407 (7.360-7.450); sO2 98.5 % (92.0-98.0)
--- NOTE | 2019-06-24 06:24 | NUR ---
PATIENT SPONTANEOUSLY MOVES WHEN ENTERING THE ROOM AND TALKING TO PATIENT. PATIENT GRIPED HAND AT 2000 ASSESSMENT, BUT DID NOT DURING 0000 AND O400 ASSESSMENT. RESPONDS TO ORAL CARE AND PAINFUL STIMULI. A-FIB ON SUPERVISOR GREEN END DEPARTMENT. RIGHT FEMORAL VENOUS SHEATH INTACT. LEFT JUGUAR TRIPPLE LUMEN CENTRAL LINE NOTED TO HAVE DRIED DRAINAGE DURING BEGINNING OF THE SHIFT, NO NEW BLEEDING NOTED. LEFT RADIAL ART LINE INTACT. PATIENT TOLERATING TUBE FEEDING WITH MINIMAL RESIDUAL CHECKS. SPOKE WITH DURING BEGINNING OF SHIFT. VENTILATOR SETTINGS CHANGED AT 1900, FIO2 DECREASED FROM 50% TO 40% AND RESPIRATORY SET AT 20, O2 SAT REMAINED ABOVE 95%. PA PRESSURES MONITORED. INSULIN SCALE INCREASED TO HIGH DOSE AT 0600 DUE TO INCREASING BLOOD SUGARS. NO SIGN OF ACUTE DISTRESS NOTED AT THIS TIME. WILL CONTINUE TO MONITOR.
[2019-06-24 07:33] LABS: HEMATOCRIT 23.9 % (42.0-52.0); MCH 27.6 pg (26.0-34.0); MCHC 33.4 g/dL (28.0-37.0); MCV 82.7 fL (80.0-100.0); RBC 2.9 mil/uL (4.50-6.00); RDW 19.2 % (10.5-14.5); WBC 8.9 thou/uL (4.0-11.0)
[2019-06-24 07:44] LABS: CALCIUM 7.8 mg/dL (8.5-10.1); CREATININE 3.4 mg/dL (0.7-1.3); POTASSIUM 4.4 mmol/L (3.5-5.1)
--- NOTE | 2019-06-24 08:29 | NUR ---
PATIENT STARTING DIALYSIS, MORPHINE GIVEN FOR COMFORT. LEVOPHED GTT AT BEDSIDE FOR HYPOTENSION.
[2019-06-24 09:12] LABS: INR 1.3
--- NOTE | 2019-06-24 20:08 | NUR ---
PATIENT'S BLOOD PRESSURE 81/55 (62), LEVOPHED RESTARTED.
[2019-06-25] VITALS (84 sets, daily range): BP systolic 99–131; BP diastolic 54–76
--- NOTE | 2019-06-25 00:21 | NUR ---
SPOKE TO AT 2230 AND UPDATED ON PATIENT'S CONDITION, FACETIMED WITH PATIENT FOR 10 MINUTES.
[2019-06-25 05:24] LABS: HEMATOCRIT 27.9 % (42.0-52.0); MCH 27.2 pg (26.0-34.0); MCHC 32.1 g/dL (28.0-37.0); MCV 84.5 fL (80.0-100.0); RBC 3.3 mil/uL (4.50-6.00); RDW 19.5 % (10.5-14.5); WBC 21.2 thou/uL (4.0-11.0)
--- NOTE | 2019-06-25 05:37 | NUR ---
PATIENT SPONTANEOUSLY MOVES ALL EXTREMITIES, DOES NOT FOLLOW COMMANDS. RESPONDS TO PAINFUL STIMULI AND ORAL CARE. A-FIB ON SLUNK SKIN CURER, HEART RATE SUSTAINED IN 90S, NO REQIREMENT OF PRN METOPROLOL. LEVOFED STARTED DURING BEGINNING OF SHIFT NOT RUNNING, BLOOD PRESSURE 120/60. 40% ON VENTILATOR, O2 SAT REMAINED ABOVE 90%. PATIENT TOLERATING TUBE FEEDING AT RATE OF 40ML/HR, RESIDUALS LESS THAN 10ML. SPOKE WITH RESPIRATORY ABOUT FREQUENT NEED OF INLINE SUCTION CHANGE ON VENTILATOR, PATIENT HAS PLATA THICK COLORED SECRETIONS RESEMBLING TUBE FEEDING. TUBE FEEDING HELD, AWAITING AM CHEST X-RAY RESULTS. DR. PENALOZA MADE AWARE OF SITUATION. NO SIGN OF ACUTE DISTRESS NOTED AT THIS TIME. WILL CONTINUE TO MONITOR.
[2019-06-25 05:44] LABS: ALBUMIN 3.8 g/dL (3.4-5.0); CALCIUM 8.1 mg/dL (8.5-10.1); CREATININE 3.1 mg/dL (0.7-1.3); POTASSIUM 4.5 mmol/L (3.5-5.1)
--- NOTE | 2019-06-25 06:09 | NUR ---
SPOKE WITH DR. HERNÁNDEZ ABOUT INCREASE IN WHITE BLOOD CELL COUNT AND BLOOD SUGAR CHECKS. BLOOD CULTURES ORDERED. ALSO MENTIONED POSSIBLE ASPIRATION OF TUBE FEEDING, AWAITING CHEST X-RAY. TUBE FEEDING ON HOLD UNTIL RESULTS NOTED.
--- NOTE | 2019-06-25 10:30 | NUR ---
chart review. tube feed on hold, possible aspiration. going to get cxr. damian having dialysis again today. report passed on from bedside nurse. will cont following as needed for dc needs.
--- NOTE | 2019-06-25 13:34 | NUR ---
PT STABLE ON VENT. RT WILL BEGIN WEANING TRIAL TODAY. HD FROM [phone] TODAY, 3L TAKEN OFF. SPOKEN TO FAMILY ON 3 DIFFERENT OCCASIONS TODAY, THEY HAVE BEEN EDUCATED AND UPDATED. I ASKED DR JENKINS TO PLEASE GIVE THEM A CALL FOR AN UPDATE. TUBE FEEDING ON HOLD DUE TO POSSIBLE ASPIRATION.
--- NOTE | 2019-06-25 19:58 | NUR ---
1800 BLOOD SUGAR WAS 242, INSULIN NOT DOCUMENTED ON EMAR. SPOKE WITH COLEEN DURBIN RN, CLARIFIED THAT 14 UNITS OF LISPRO WAS GIVEN AT 1800.
[2019-06-26] VITALS (106 sets, daily range): BP systolic 63–131; BP diastolic 37–70
[2019-06-26 06:31] LABS: ALBUMIN 4.1 g/dL (3.4-5.0); CALCIUM 8.2 mg/dL (8.5-10.1); CREATININE 3.3 mg/dL (0.7-1.3); PHOSPHORUS 4.6 mg/dL (2.5-4.9); POTASSIUM 4.7 mmol/L (3.5-5.1)
--- NOTE | 2019-06-26 10:55 | NUR ---
1055- Dr. Zhang here rounding on patient. She expressed to resume tube feeding at a low rate. See how patient tolerates tube feedings. Bowel sounds present. Hold welchol for now, unable to be crushed. Will continue to monitor.
--- NOTE | 2019-06-26 11:50 | NUR ---
1150 DR. DE JESUS ROUNDED. HIS RECOMMENDATION IS IF PATIENT REQUIRES PROLONGED USE OF LEVOPHED TO SWITCH TO ADI IF OK WITH PRIMARY PHYSICIAN.
--- NOTE | 2019-06-26 12:25 | NUR ---
1225- DR. GREGORY YEE. NO ABG TODAY, WILL ORDER ONE IN THE MORNING. PLAN IS TO LET PATIENT REST TODAY. OK WITH TUBE FEEDING STARTED AT A LOW RATE PER HOUR. HOLD LONG ACTING INSULIN FOR NOW UNTIL WE SEE HOW PATIENT TOLERATES TUBE FEEDING.
--- NOTE | 2019-06-26 15:35 | NUR ---
1535- RESTRAINTS DISCONTINUED. NO EVIDENCE OF PATIENT ATTEMPTING TO PULL AT LINES. WILL CONTINUE TO MONITOR.
--- NOTE | 2019-06-26 16:46 | NUR ---
1440- versed placed back on as patient coughing/gagging, causing vent to alarm. Respiratory rate is 23, not following commands, Heart Rate is 113 bpm. He is not opening eyes. They are reactive and sluggish. low dose versed started to help maintain ventilator.
--- NOTE | 2019-06-26 18:02 | NUR ---
NURSE TALKED WITH DR. JENKINS ABOUT VENT ALARMING MV LOW AND TV NOT REACHED. PATIENT HAS POSITIVE COUGH AND GAG. WAS OFF VERSED, HOWEVER IT WAS RESTARTED TO HELP WITH THIS. VENT CONTINUES TO READ THIS PT COUGHS. IT IS A VERY WEAK COUGH. NURSE PROVIDED SUCTION AND GOT BACK A SMALL AMOUNT OF PLATA THICK SPUTUM. NURSE TO START PRECEDEX TO HELP AND WEAN OFF VERSED.
--- NOTE | 2019-06-26 18:03 | NUR ---
PER DR. DE JESUS, OK TO START LOVENOX. PER DR. CARRERA, WAS OK TO START LOVENOX IF OK WITH CARDIOLOGY. WILL INFORM PHARMACIST OF THIS.
--- NOTE | 2019-06-26 19:01 | NUR ---
PATIENT NOT PROGRESSING TOWARDS PLAN OF CARE EVIDENCED BY WITH SEDATION VACATION, PATIENT NOT WAKING UP. HOWEVER, PATIENT DOES HAVE A GAG AND COUGH AND STIMULATES THE VENT TO ALARM WITHOUT SEDATION. PATIENT REQUIRED LEVOPHED TODAY DURING DIALYSIS. THEN WAS ABLE TO WEAN OFF. VERSED WAS OFF FROM [id number]. THEN IT WAS RESUMED TO HELP WITH VENT MANAGEMENT. THIS WAS INFORMED TO DR. JENKINS, PRECEDEX WAS ORDERED. ONCE ARRIVAL TO UNIT, IT WILL BE STARTED.
--- NOTE | 2019-06-26 22:28 | NUR ---
SPOKE WITH ROSALBA(DTR) AND JORDY() THIS EVENING REGAURDING THEIR DISSATISFACTION WITH THE AMOUNT OF COMMUNICATION THEY ARE RECEIVING FROM PHYSICIANS. THEY ARE REQUESTING THAT WHENEVER A CHANGE IS MADE THAT IT IS RAN PAST THEM FIRST. I SPOKE WITH LORNE RAM TAKING CARE OF THE PT SAVI REGAURDING OUR CONVERSATION. RN WILL PASS ON TO DAYSHIFT RN DURING REPORT THAT THE FAMILY WOULD LIKE TO HEAR FROM ALL THE ROUNDING PHYSICIANS.
[2019-06-27] VITALS (74 sets, daily range): BP systolic 81–150; BP diastolic 44–81
[2019-06-27 05:37] LABS: BE(vivo) -2.3 mmol/L (-2 to +3); HCO3 22.3 mmol/L (22.0-26.0); PCO2 37.4 mmHg (35.0-45.0); PO2 75.3 mmHg (80.0-100.0); pH 7.393 (7.360-7.450); sO2 95.1 % (92.0-98.0)
[2019-06-27 05:58] LABS: HEMOGLOBIN 9.9 gm/dL (14.0-18.0); MCH 26.9 pg (26.0-34.0); MCHC 31.8 g/dL (28.0-37.0); MCV 84.6 fL (80.0-100.0); RBC 3.67 mil/uL (4.50-6.00); RDW 19.7 % (10.5-14.5); WBC 34.7 thou/uL (4.0-11.0)
[2019-06-27 06:17] LABS: CALCIUM 8.4 mg/dL (8.5-10.1); CREATININE 3.4 mg/dL (0.7-1.3); POTASSIUM 4.7 mmol/L (3.5-5.1)
--- NOTE | 2019-06-27 08:15 | NUR ---
ASSUME CARE 1900. PT SEDATED SUT STABLE. BP RUNS SOFT. PT ON TUBE FEEDING AT 20ML/HR AND TOLERATING WELL WITH RESIDUALS NOTED TO BE 20MLS. ON AMIODARONE FOR AFIB RVR. NEEDS CARDIOLOGY TO RE-EXAMINE DYSRYTHMIA MANAGEMENT. HR UP TO 130S/1450s WITH PT ON AMIO DRIP. PRECEDEX STARTED TO HELP WITH HR BUT TANKED PT'S BLOOD PRESSURE TO 60s SYSTOLIC. AT 2245 WITH STARTING PRECEDEX SBP IN 60S. VERSED TURNED OFF COMPLETELY AND PRECEDEX STARTED AT LOWEST WITH NO BLUS GIVEN BUT SBP STAYED IN 70s WITH LOW MAP IN 40s TO 50s. 2310: PRECEDEX TURNED PFF AND LEVOPHED STARTED TO HELP BRING BP BACK UP. PT STAYED ON SEDATIVES FOR THE REST OF THE NIGHT. DID NOT WAKE UP AND BP STABILIZED WITH LEVOPHED RUNNING AT 12MCG/MIN. 0710:GAVE 2.5MG METOPROLOL IVP FOR HR SUSTAINING IN 130s-140s, RESTARTED VERSED AT 0.4MG AND DROPPED LEVOPHED TO 5MCG/MIN. PATIETN TOLERATING WELL AND BP IS STABILIZED. PLAN IS TO CONTINUE TO MONITOR TUBE FEEDING TOLERANCE, CONTINUE WITH ABX, MONITOR TEMP AND KIDNEY FUNCTION. WILL CONTINUE TO FOLLOW WITH POC
[2019-06-27 10:27] LABS: ALBUMIN 3.6 g/dL (3.4-5.0); DIRECT BILIRUBIN 3.2 mg/dL (<0.1-0.2); TOTAL BILIRUBIN 5.8 mg/dL (<0.1-1.0)
[2019-06-27 10:34] LABS: TOTAL PROTEIN 6.7 g/dL (6.4-8.2)
--- NOTE | 2019-06-27 16:15 | NUR ---
REMAINS ON THE VENT. AND SEDATION AT THIS TIME. TOLERATING TUBE FEEDING WELL. SPOKE WITH . SHE EXPECTS PHONE CALLS DAILY FROM EVERY [facility] IN THE HOSPITAL SHE SAYS THAT IT IS CDC GUIDELINES. I INFORMED HER AND REQUESTED THEY CALL AND GIVEN HER UPDATED INFORMATION. WILL HAVE TO PLAN A PHONE CONFERENCE IN REGARDS TO PLAN OF CARE WITH IN THE ICU IN REGARDS TO STATUS POST SURGERY DR. JENKINS WANTS A CPAP TRIAL DONE TODAY AND ONE HAS BEEN DONE AND PT FAILED PER RESPIRATORY THERAPY. AFIB ON THE HOSPICE MASSAGE THERAPIST AND CARDIOLOGY FOLLOWING PT AT THIS TIME PER NURSING
--- NOTE | 2019-06-27 17:55 | NUR ---
NEURO CONSULT PLACED AND LEFT MESSAGE WITH DR. CARNES TO BE SEEN AND FOLLOWED IN REGARDS TO PT STATUS IN THE ICU
[2019-06-28] VITALS (94 sets, daily range): BP systolic 73–132; BP diastolic 40–74
[2019-06-28 05:44] LABS: HEMATOCRIT 28.8 % (42.0-52.0); HEMOGLOBIN 9.3 gm/dL (14.0-18.0); MCH 27.2 pg (26.0-34.0); MCHC 32.1 g/dL (28.0-37.0); MCV 84.6 fL (80.0-100.0); RBC 3.41 mil/uL (4.50-6.00); RDW 20.1 % (10.5-14.5); WBC 26.4 thou/uL (4.0-11.0)
[2019-06-28 05:55] LABS: CALCIUM 8.4 mg/dL (8.5-10.1)
[2019-06-28 05:58] LABS: CREATININE 4.9 mg/dL (0.7-1.3); POTASSIUM 5.7 mmol/L (3.5-5.1)
--- NOTE | 2019-06-28 07:24 | NUR ---
Assumed pt care last night at 1900. Have spoken to pt's , Iris and his daughter x2 and discussed POC and answered questions. Pt is not progressing towards goals. Versed was at 0.4 mg/hr so this was discontinued early in the shift, pt has not become more reponsive since. Seems to be tolerating vent settings with adequate SPO2 noted. Afib 100-120s, BP with borderline MAP of 60 mm/hg most of shift until BP dropped into SBP of 70s. Levophed restarted at that time requiring about 3 mcg/min to maintain adequate BP. No BM this shift, need stool for occult blood. UOP minimal, Dr. Beckett aware. Plan for HD this morning. Pt turned Q2 hours, Mepilex placed to coccyx with CHG bath. Reassessments and vital signs per charting.
--- NOTE | 2019-06-28 07:30 | NUR ---
CALLED TO UPDATE PT . REPORTED PT NOW UNRESPONSIVE. PT BECAME SOMEWHAT BELLIGERENT TOWARDS THIS RN. STATED SHE WAS FURIOUS AT US AND THAT WE WERE NOT DOING WHAT WE WERE SUPPOSED TO BE DOING. PT STATES SHE IS HAVING AN CARBIDE GRINDER CALL THE HOSPITAL TODAY.
--- NOTE | 2019-06-28 07:59 | HC ---
[facility] [place] [address] CONSULTATION Name: ANDRADE GARCÍA HANOVER Room #: [facility]- ADM IN M.R.#: [id number] Admission: 06/13/19 Attend Phys: Bala Medellin MD Discharge: Date of : 47 Report #: [id number] THIS REPORT FOR: cc: Bala Medellin MD,Min Figueroa MD, MD ~ CC: Bala Medellin DATE OF SERVICE: 06/27/2019 INFECTIOUS DISEASE CONSULTATION ATTENDING PHYSICIAN: Dr. Medellin. REASON FOR CONSULTATION: Leukocytosis and the patient is critically ill. HISTORY OF PRESENT ILLNESS: The patient examined. This is a 73-year-old gentleman with fairly extensive medical history most of which is vasculopathy, specifically coronary artery disease. Does have diabetes mellitus type 2, probably as a risk factor as well, presented to the Emergency Room with progressive weakness on 06/11/2019, noted to have chest pain, associated nausea, emesis. Near the course of the evaluation for several days, he was critically ill. He was noted to have unstable angina, underwent cardiac catheterization, PTCA of the obtuse marginal. In the interim, respiratory difficulty with failure and was intubated, which he has been since the . He is in acute renal failure, now on dialysis. Has been started on broad-spectrum therapy including piperacillin and tazobactam. Cultures thus far are unremarkable. He did not have cultures based on the initial several days of hospitalization. Most recently, sputum culture in progress from 06/23/2019. Blood cultures from 06/25/2019 are sterile thus far. At this point, he is not responsive. He is maintained on ventilatory support with FiO2 of 40%. It was noted that his chest x-ray showed progressive infiltrates, suspected he may have aspirated. Also noted recent trend, has elevated white count. Most recently on 06/24/2019, he was in the normal range. Today, he is up to 34,700. Does have some thrombocytopenia as well, low-grade temperature elevations. Does have moderate secretions per nursing staff and is having no loose stools. He has been started on some enteral nutrition, has marginal urine output. ALLERGIES: Listed to [facility]. CURRENT MEDICATIONS: Include vancomycin which was started today, enoxaparin, insulin glargine, dexmedetomidine, is on amiodarone drip as well as norepinephrine drip, ipratropium and albuterol inhaler, Zosyn, atorvastatin, cholecalciferol, ezetimibe, colesevelam. PAST MEDICAL HISTORY: As described above, has known multivessel coronary artery [address] [address] CONSULTATION Name: GARCÍAANDRADE HANOVER Room #: [facility]- ADM IN M.R.#: [id number] Admission: 06/13/19 Attend Phys: Bala Medellin MD Discharge: Date of : 47 Report #: [id number] disease with previous aortocoronary bypass grafting on at least 2 other occasions, 1980, 1993; diabetes mellitus, insulin requiring. History of tachy dysrhythmias, underwent cardioversion. Anemia; as noted. Carotid occlusive disease, ischemic cardiomyopathy with an EF of 25-30%; hypertension. SOCIAL HISTORY: Former smoker. Fairly regular ethanol. No illicit drug use. FAMILY HISTORY: Noncontributory. REVIEW OF SYSTEMS: Unobtainable. PHYSICAL EXAMINATION: GENERAL: He is lying supine in the bed. He is pale appearing, not overtly distressed. VITAL SIGNS: Temperature 99.3 axillary, pulse 133, respirations 26, blood pressure 136/70. SKIN: Warm, dry. HEENT: Normocephalic. Has got ET, OT tube in place. He has got a dialysis catheter on the right side. He has got a central venous line on the left side. He has got arterial line as well. NECK: Appears to be supple. LUNGS: Scattered coarse breath sounds. HEART: Tachycardic, somewhat irregular. ABDOMEN: Firm. There are no overt peritoneal signs. GENITOURINARY AND RECTAL: Deferred. LABORATORY DATA: Blood cultures collected on the are sterile thus far. Chest x-ray showed bilateral diffuse patchy opacities, question of pneumonitis, perhaps with a component of pulmonary edema. Electrolytes: Sodium 130, potassium 4.7, chloride 93, bicarbonate is 26, anion gap of 11, BUN and creatinine 89 and 3.4, glucose of 3.5. CBC: White count of 34.7, H and H 9.9 and 31.0, platelets of 83. ABGs earlier today, pH 7.393, pCO2 of 37.4, pO2 of 75.3 and that was on FiO2 of 40% with a PEEP of 6. Back on 06/19/2019, AST of 304, lipase of 394, ALT of 220. ASSESSMENT AND PLAN: Leukocytosis, low-grade fevers. The patient is critically ill and has been hospitalized for excess of 2 weeks. He is on extensive supportive treatment, certainly at high risk for nosocomial related infectious complications including aspiration, somewhat worried about gastrointestinal related source as well given the markedly elevated white count. We will do ultrasound of the abdomen. Adjust therapy, discontinue the Zosyn and will start meropenem dose with fluconazole as well. We will repeat blood cultures. <ELECTRONICALLY SIGNED> By: Mni Ho MD 06/28/19 0759 0959 1100 Min Ho MD /nt
[2019-06-28 08:53] LABS: BE(vivo) -6.3 mmol/L (-2 to +3); HCO3 19.4 mmol/L (22.0-26.0); PCO2 39.5 mmHg (35.0-45.0); sO2 95.3 % (92.0-98.0)
--- NOTE | 2019-06-28 09:00 | NUR ---
PT NOT TOLORATING HD. HR UP TO 145. DR. COURTNEY'S NURSE CALLED. ORDERS GIVEN FOR AMIODARONE BOLUS. DR. LOFTON CALLED VIA HD NURSE. BLOOD RETURNED AND WILL DO CRRT. LEVOPHED CURRENTLY AT 20MCG/MIN.
--- NOTE | 2019-06-28 09:00 | NUR ---
PT NOT TOLORATING HD. HD NURSE INFORMED DR. RIBEIRO. DR COURTNEY'S NURSE CALLED RE HR 145 AFIB. ORDERS GIVEN. 0920 150MG AMIODARONE BOLUS GIVEN. PT HR DOWN TO 114.
--- NOTE | 2019-06-28 09:30 | NUR ---
SPOKE WITH DR. HERNÁNDEZ REGARDING PT NOT TOLORATING HD AND NEEDS CRRT. MD STATES WANTS EVERYTHING DONE AND TO PROCEED. STATES HE WILL CALL HER BACK AND UPDATE HER.
--- NOTE | 2019-06-28 10:34 | NUR ---
1030: HD NURSE TEXTING WITH DR PENALOZA ABOUT CHANGING PT FROM HD TO CRRT. CA SAYS BOTH HE AND EDGAR HAVE SPOKEN TO JORDY, THE , AND SHE APPROVES OF THE CHANGE IN PLAN OF CARE. HD NURSE SETTING UP CRRT MACHINE NOW. IS COMING TO HOSPITAL BY 11 TO SEE PT. EDGAR BROUGHT UP SUBJECT OF PALLIATIVE CARE.
--- NOTE | 2019-06-28 11:00 | NUR ---
REPORT GIVEN TO KATLYN PRADHAN. PREPARING FOR CRRT
--- NOTE | 2019-06-28 12:39 | NUR ---
dr stinson stopped by office reported that pt would like their 3 kids to visit, rt he possible going comfort care tomorrow and would like this set up for them. cm passed on information to sw team, will cont following as needed for dc needs. icu nurse supervisor enrobing door closed will check back with her later.
--- NOTE | 2019-06-28 13:03 | NUR ---
RN ASSUMED CARE OF PATIENT AROUND 1000. PATIENT ON LEVOPHED GTT @ 20, ABX AND AMIO GTT @0.5. DR. BROWN, NEUROLOGY ROUNDING ON PATIENT. ORDERS FOR CT SCAN AND EEG RECIEVED. ARRIVED TO BEDSIDE. DR BROWN SPEAKING WITH ABOUT CURRENT PLANS AND IMAGING STUDIES TO BE CONDUCTED R/T [place]. STATING " THEY HAD THE HOSPITALIST CHANGE HIS SEDATION AND HE HAS NOT BEEN RESPONSIVE SINCE." DR. BROWN EDUCATING OF PRECEDEX. PATIENT TAKEN TO CT SCAN AND TOLERATED IT WELL. RETURNING TO ROOM, AT BEDSIDE WITH DR. HERNÁNDEZ. PATIENT PREPARING FOR CRRT AND EEG AT THIS TIME. LEAVING AROUND 1300. PATIENT REMAINS ON GTTS STATED ABOVE. DIALYSIS PERSONEL AND RN PREPARING FOR CRRT.
--- NOTE | 2019-06-28 20:54 | NUR ---
PATIENT'S BLOOD PRESSURE 115/59 (73), LEVOFED DECREASED FROM 23 MCG TO 20 MCG/MIN.
--- NOTE | 2019-06-28 22:25 | NUR ---
SPOKE WITH ON THE PHONE AND UPDATED HER ON PATIENT'S CONDITION.
[2019-06-29] VITALS (64 sets, daily range): BP systolic 78–141; BP diastolic 33–62
--- NOTE | 2019-06-29 01:33 | NUR ---
PATIENT RECIEVING CRRT, CRRT MACHINE ALARMING AT 0030, TROUBLE SHOOTING AND SELF TEST COMPLETED, MACHINE STILL ALARMED. PATIENT DISCONNECTED, SPOKE WITH DIALYSIS NURSE JAVA DEVELOPER ANALYST, DIALYSIS NURSE PRESENT AT THE BEDSIDE TO ASSESS MACHINE AND PATIENT. SPOKE TO DR. OSBORN AT 0040 AND HE STATED TO HOLD CRRT THROUGHOT REMAINING OF SHIFT AND WILL ADDRESS RESTARTING IN THE MORNING.
--- NOTE | 2019-06-29 02:48 | NUR ---
PATIENT'S BLOOD PRESSURE 129/60 (82), levofed decreased to 18mcg.
--- NOTE | 2019-06-29 04:02 | NUR ---
PATIENT'S BLOOD PRESSURE 117/57 (74), LEVOPHED DECREASED TO 12MCG.
--- NOTE | 2019-06-29 04:36 | NUR ---
PATIENT'S 399 ASSESSMENT COMPLETED, NEUROLOGICALLY SLIGHT DECREASE FROM 1999 ASSESSMENT. PATIEN'T DOES NOT RESPOND TO PAINFUL STIMULI OR ORAL CARE. PUPILS BRISK AND REACTIVE, SLIGHT GAG REFLEX WHEN SUCTIONED. MAKING SMALL AMOUNT OF URINE SINCE CRRT. [facility] SCORE OF 3, MTN NOTIFIED AT 0418, SPOKE WITH ROMARIO, REFERRAL NUMBER [id number]. PATIENT CURRENTLY 40% FIO2 ON VENTILATOR, O2 SAT REMAINES ABOVE 95%, TOLERATING TUBE FEEDING AT GOAL RATE 40ML/HR, RESIDUAL CHECK LESS THAN 100. BATH COMPLETED, NO SIGN OF ACUTE DISTRESS NOTED AT THIS TIME WILL CONTINUE TO MONITOR.
--- NOTE | 2019-06-29 05:40 | NUR ---
SPOKE WITH DR. PENALOZA ABOUT CRRT OVER NIGHT, DR. PENALOZA STATED HE WILL TALK TO BEFORE FURTHER TREATMENT.
--- NOTE | 2019-06-29 05:53 | NUR ---
SPOKE WITH JORDY GARCÍA AND GAVE HER AN UPDATE ON PATIENT'S NIGHT.
--- NOTE | 2019-06-29 10:52 | NUR ---
MTN INQUIRED ON PT STATUS, UPDATED. THEY REQUESTED A RETURN CALL IF THERE IS NO PUPILLARY REACTION OR PT NOT BREATHING ABOVE VENT SET LEVEL, OR IF PT IS TO BE REMOVED FROM VENT. JORDY GARCÍA, SPOUSE CALLED TO INQUIRE REGARDING PT STATUS. PEER RN TOOK CALL SINCE RN GIVING MEDICATIONS WITH MESSAGE GIVEN FOR RN TO RETURN CALL. CALLED JORDY, MESSAGE LEFT ON VOICEMAIL REGARDING RETURN CALL AND ATTEMPT TO SPEAK WITH HER.
--- NOTE | 2019-06-29 11:00 | NUR ---
JORDY GARCÍA, RETURNED CALL. UPDATED ON PT CONDITION INCLUDING NO CORNEAL REFLEX, COUGH OR GAG REFLEX, NO RESPONSE TO DEEP PAIN AND REMAINS ON LEVOPHED FOR BP SUPPORT AND AMIODARONE FOR HEART RATE/RHYTHM CONTROL. SHE STATED THAT SHE DIDN'T THINK THAT HE WOULD BE ANY BETTER AND THAT HER CHILDREN WERE COMING FROM [place]. SHE FURTHER VOLUNTEERED, TOMORROW HE WILL COME OFF THE VENTILATOR AND I WANT MY KIDS TO BE ABLE TO SEE HIM. DR. COURTNEY AND DR. KHUSHBU NORTON ARE PRESENT TO SEE PT. UPDATED DR. NORTON, NEUROLOGIST. DR. COURTNEY SPOKE WITH ON THE PHONE, THEN INQUIRED IF SHE WOULD LIKE TO SPEAK WITH DR. NORTON. SHE DECLINED. IN CONVERSATION, SHE STATED, "NO CPR BUT GIVE A LITTLE MEDS". SHE FURTHER CONTINUED, "HIS HEART IS TIRED, HIS BODY IS SHUTTING DOWN. I WANT MY KIDS TO BE ABLE TO SEE HIM". UPON REQUESTING CLARIFICATION, SHE STATED, "NO CPR BUT GIVE A LITTLE MEDS". RN LISTENED TO HER CONCERNS. VALIDATED HER CONCERNS. NO PROMISES GIVEN.
--- NOTE | 2019-06-29 11:40 | NUR ---
DR. HERNÁNDEZ JUST CALLED. PT IS A "NO COMPRESSION" STATUS, NO DIALYSIS. THE PLAN IS FOR COMFORT CARE TOMORROW AND EXTUBATION.
--- NOTE | 2019-06-29 12:15 | NUR ---
DR. LINDSEY KING RETURNED CALL REGARDING VANCO TROUGH-13. CONTINUE SAME DOSING.
--- NOTE | 2019-06-29 15:17 | NUR ---
SHAQ reviewed chart and spoke with nursing. Pt's family from [place] will be coming to see pt. Plan is for pt to be made comfort care tomorrow. [facility] is following and is available to assist as needed.
--- NOTE | 2019-06-29 16:53 | NUR ---
RECENTLY TITRATING LEVOPHED UP TO 20 MCG/MIN. TWICE, RN NOTED THREE CONSECUTIVE BEATS OF VENTRICULAR ECTOPY. RN AT PT BEDSIDE. AT 1659, NOTED VENTRICULAR TACHYCARDIA WITHOUT A PULSE ON THE MONITOR, CODE BLUE INITIATED. NO COMPRESSIONS PER MD ORDER. SEE CODE BLUE DOCUMENTATION. CALLED JORDY GARCÍA, AND LEFT MESSAGE ON PHONE FOR HER TO RETURN CALL. CALL PLACED TO DR. HERNÁNDEZ, TO UPDATE ON CHANGE IN PT CONDITION. DR. KIM PRESENT DURING CODE AND PRONOUNCED PT AT 1708. SEE NURSING SUMMARY WORKSHEET FOR DETAILS. SPOKE WITH MTN FOR AT LEAST 25 MINUTES, THEN VINH WITH MTN CALLED BACK SEVERAL MORE TIMES. 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 ATTEMPTED A COUPLE OF TIMES TO COME TO SEE PT IN HIS ROOM. DUE LENGTHY AND SEVERAL MTN PHONE CALLS, THERE WAS A DELAY IN GETTING THE BODY READY FOR HER ARRIVAL. SOON BODY READY, I CALLED JORDY GARCÍA ON HER CELL PHONE TO COME TO THE ER HOSPITAL ENTRANCE AND THAT ARRANGEMENTS WERE MADE FOR HER TO BE ESCORTED TO ICU BY LORNE SANTANA. JORDY SPENT AN HOUR AT THE BEDSIDE WITH HER SPOUSE. LISTENED AND PROVIDED SUPPORT. REPORT TO LORNE LIZ.
--- NOTE | 2019-06-29 20:37 | NUR ---
LEFT BEDSIDE, PATIENT TRANSFERRED TO [facility] BY SECURITY.
== END 2019-06-29 17:08 | DRG 250 ==
LOC: ER 01:41 → ICU 03:05 → EROBS 03:05 → 2N 03:39 → ICU 23:50
PROVIDERS: Emergency Medicine; Hospitalist; Internal Medicine Cardiovascular Disease; Internal Medicine Nephrology; Internal Medicine Pulmonary Disease; Nurse Practitioner; Nurse Practitioner Adult Health; Nurse Practitioner Family; Pediatrics; Radiology Diagnostic Radiology; Radiology Vascular & Interventional Radiology; Specialist; ADMIT Family Medicine
PROC: 5A09357 Assistance with Respiratory Ventilation, Less than 24 Consecutive Hours, Continuous Positive Airway Pressure (ICD-10-PCS; 2019-06-14)
PROC: 5A09357 Assistance with Respiratory Ventilation, Less than 24 Consecutive Hours, Continuous Positive Airway Pressure (ICD-10-PCS; 2019-06-15)
PROC: 5A09357 Assistance with Respiratory Ventilation, Less than 24 Consecutive Hours, Continuous Positive Airway Pressure (ICD-10-PCS; 2019-06-16)
PROC: B548ZZA Ultrasonography of Superior Vena Cava, Guidance (ICD-10-PCS; 2019-06-17)
PROC: 5A09357 Assistance with Respiratory Ventilation, Less than 24 Consecutive Hours, Continuous Positive Airway Pressure (ICD-10-PCS; 2019-06-17)
PROC: 02HV33Z Insertion of Infusion Device into Superior Vena Cava, Percutaneous Approach (ICD-10-PCS; 2019-06-17)
PROC: 5A09357 Assistance with Respiratory Ventilation, Less than 24 Consecutive Hours, Continuous Positive Airway Pressure (ICD-10-PCS; 2019-06-18)
PROC: 5A09357 Assistance with Respiratory Ventilation, Less than 24 Consecutive Hours, Continuous Positive Airway Pressure (ICD-10-PCS; 2019-06-19)
PROC: 5A09357 Assistance with Respiratory Ventilation, Less than 24 Consecutive Hours, Continuous Positive Airway Pressure (ICD-10-PCS; 2019-06-20)
PROC: 03HY32Z Insertion of Monitoring Device into Upper Artery, Percutaneous Approach (ICD-10-PCS; 2019-06-20)
PROC: 02HV33Z Insertion of Infusion Device into Superior Vena Cava, Percutaneous Approach (ICD-10-PCS; 2019-06-20)
PROC: 0BH17EZ Insertion of Endotracheal Airway into Trachea, Via Natural or Artificial Opening (ICD-10-PCS; 2019-06-20)
PROC: B548ZZA Ultrasonography of Superior Vena Cava, Guidance (ICD-10-PCS; 2019-06-20)
PROC: 5A1955Z Respiratory Ventilation, Greater than 96 Consecutive Hours (ICD-10-PCS; 2019-06-20)
PROC: 30233N1 Transfusion of Nonautologous Red Blood Cells into Peripheral Vein, Percutaneous Approach (ICD-10-PCS; principal; 2019-06-21)
PROC: B215YZZ Fluoroscopy of Left Heart using Other Contrast (ICD-10-PCS; principal; 2019-06-21)
PROC: B211YZZ Fluoroscopy of Multiple Coronary Arteries using Other Contrast (ICD-10-PCS; principal; 2019-06-21)
PROC: 02703ZZ Dilation of Coronary Artery, One Artery, Percutaneous Approach (ICD-10-PCS; principal; 2019-06-21)
PROC: 4A023N7 Measurement of Cardiac Sampling and Pressure, Left Heart, Percutaneous Approach (ICD-10-PCS; principal; 2019-06-21)
DX: T82.867A Thrombosis due to cardiac prosthetic devices, implants and grafts, initial encounter (principal); I21.4 Non-ST elevation (NSTEMI) myocardial infarction; N17.0 Acute kidney failure with tubular necrosis; A41.9 Sepsis, unspecified organism; J96.21 Acute and chronic respiratory failure with hypoxia; I48.19 Other persistent atrial fibrillation; R04.2 Hemoptysis; I48.92 Unspecified atrial flutter; E87.1 Hypo-osmolality and hyponatremia; I82.612 Acute embolism and thrombosis of superficial veins of left upper extremity; I25.110 Atherosclerotic heart disease of native coronary artery with unstable angina pectoris; R57.0 Cardiogenic shock; G89.29 Other chronic pain; M54.9 Dorsalgia, unspecified; N18.9 Chronic kidney disease, unspecified; E78.5 Hyperlipidemia, unspecified; I25.5 Ischemic cardiomyopathy; D72.829 Elevated white blood cell count, unspecified; E11.51 Type 2 diabetes mellitus with diabetic peripheral angiopathy without gangrene; N40.0 Benign prostatic hyperplasia without lower urinary tract symptoms; I48.0 Paroxysmal atrial fibrillation; I65.23 Occlusion and stenosis of bilateral carotid arteries; I95.9 Hypotension, unspecified; I49.5 Sick sinus syndrome; G47.33 Obstructive sleep apnea (adult) (pediatric); D64.9 Anemia, unspecified; E66.9 Obesity, unspecified; E87.5 Hyperkalemia; D69.6 Thrombocytopenia, unspecified; E11.22 Type 2 diabetes mellitus with diabetic chronic kidney disease; E87.8 Other disorders of electrolyte and fluid balance, not elsewhere classified; I12.9 Hypertensive chronic kidney disease with stage 1 through stage 4 chronic kidney disease, or unspecified chronic kidney disease; J44.9 Chronic obstructive pulmonary disease, unspecified; Z20.828 Contact with and (suspected) exposure to other viral communicable diseases; Z79.01 Long term (current) use of anticoagulants; Z09 Encounter for follow-up examination after completed treatment for conditions other than malignant neoplasm; Z95.1 Presence of aortocoronary bypass graft; Z88.8 Allergy status to other drugs, medicaments and biological substances; Z87.891 Personal history of nicotine dependence; Z82.49 Family history of ischemic heart disease and other diseases of the circulatory system; Z68.29 Body mass index [BMI] 29.0-29.9, adult; Y83.8 Other surgical procedures as the cause of abnormal reaction of the patient, or of later complication, without mention of misadventure at the time of the procedure; Y92.89 Other specified places as the place of occurrence of the external cause
CPT/HCPCS: 10078; 32100; 85026; 85076